=== PATIENT | male | born 1965 | race Caucasian/White ===

== ENCOUNTER → 2016-06-27 | Outpatient (CLI) | payer BC ==
[~2016-06-27] MED LIST: AZIT250T PO; ESOM20CA PO; HYDR-5688 PO; LEVO88TA3 PO; MULT-506 PO; ONDA4TAB46 PO
--- NOTE | 2016-06-27 11:40 | DIAGNOSTIC IMAGING REPORT ---
MRI THE RIGHT KNEE NO CONTRAST CLINICAL HISTORY: Persistent right knee pain COMPARISON STUDY: No previous studies for comparison. FINDINGS: Imaging was performed in sagittal, coronal, and axial planes. There are no areas of marrow replacement to indicate occult fracture or bone bruise. The medial and lateral collateral ligaments appear intact. The patellar retinacular structures appear intact. The visualized portions the patellar and quadriceps tendons appear intact. The anterior posterior cruciate ligaments appear normal. No meniscal tears are visualized. IMPRESSION: No evidence of internal derangement. Electronically signed by: Francisco Newby M.D. 06/27/2016 11:38 AM Dictated Date/Time: 06/27/2016 11:36 AM
== END | disposition home or self-care (01) ==
LOC: C.MRIBC 10:48
PROVIDERS: ATTEND Orthopaedic Surgery
DX: M25.561 Pain in right knee (principal)

== ENCOUNTER → 2016-09-14 | Outpatient (CLI) | payer BC ==
[2016-09-14 17:14] LABS: ALT/SGPT 109 U/L (12-78); BLOOD UREA NITROGEN 14 mg/dl (7-18); BUN/CREATININE RATIO 12.5 (10-20); CALCIUM 9.6 mg/dl (8.5-10.1); CARBON DIOXIDE 28 mmol/L (21-32); CHLORIDE 105 mmol/L (98-107); GLUCOSE 107 mg/dl (70-99); POTASSIUM 3.6 mmol/L (3.5-5.1); SODIUM 139 mmol/L (136-145)
[2016-09-14 17:15] LABS: BASO % 0.4 %; BASO ABS # 0.03 K/uL (0-0.2); COMPLETE YES; EOS % 2.1 %; HEMATOCRIT 46.5 % (42-52); IG% 0.1 %; LYMPH % 37.3 %; LYMPH ABS # 2.97 K/uL (1.2-3.4); MEAN CORPUSCULAR HGB CONC 33.8 g/dl (32-36); MEAN PLATELET VOLUME 9.2 fL (7.4-10.4); MONO % 7.4 %; NEUT % 52.7 %; PLATELET COUNT 353 K/uL (130-400); RED BLOOD COUNT 5.41 M/uL (4.7-6.1); WHITE BLOOD COUNT 7.97 K/uL (4.8-10.8)
[2016-09-14 17:17] LABS: ALB/GLOB RATIO 1.1 (0.9-2); ALKALINE PHOSPHATASE 162 U/L (45-117); AST/SGOT 44 U/L (15-37)
== END | disposition home or self-care (01) ==
LOC: C.LABBC 13:07
PROVIDERS: ATTEND Surgery
DX: K80.20 Calculus of gallbladder without cholecystitis without obstruction (principal); Z01.812 Encounter for preprocedural laboratory examination

== ENCOUNTER 2016-09-25 08:10 | Observation (INO) | payer BC ==
[2016-09-18 11:15] VITALS: BMI 27.0
[~2016-09-25] VITALS: Ht 177.8 cm; Wt 87.0 kg
[2016-09-25] VITALS (9 sets, daily range): BP systolic 116–146; BP diastolic 74–97; PULSE 61–86; TEMP 36.4–36.8; O2SAT 93–98; Ht 177.8 cm; Wt 87.0 kg
[~2016-09-25 08:10] MED LIST changes: -AZIT250T PO; +CEFUROXIME IV 1,500 MG in DEXTROSE 5% 100ML IV SCH; -HYDR-5688 PO; +LACTATED RINGER'S 1000ML 1,000 ML IV SCH; -ONDA4TAB46 PO
--- NOTE | 2016-09-25 09:54 | History & Physical Bridge Note ---
H&P Re-Evaluation Bridge Note: I have examined the patient, reviewed the History & Physical and in the interval since the performance of the History & Physical I have noted the following changes of clinical significance: - possible cholangiogram and liver bx- discussed with pt
[2016-09-25] MEDS ORDERED: FENTANYL CITRATE INJ 50 MCG/1 ML 2 ML VIAL ONE (09:56)
[2016-09-25] MEDS ORDERED: CONRAY 60% 50 ML VIAL ONE (09:57)
[2016-09-25] MEDS ORDERED: BUPIVACAINE 0.5 % 5 MG/1 ML MPF 30ML VIAL ONE (09:57)
[2016-09-25] MEDS ORDERED: MIDAZOLAM HCL 1 MG/ML 2ML VIAL ONE (09:57)
[2016-09-25] MEDS ORDERED: HYDR-5688 PO (09:58)
--- NOTE | 2016-09-25 09:59 | Discharge Instructions ---
Discharge Instructions Date of Service Sep 25, 2016. Admission Reason for Admission: Cholelithiasis Discharge Discharge Diagnosis / Problem: chronic cholecystitis Discharge Goals Goal(s): Decrease discomfort, Improve function, Improve disease control Activity Recommendations Activity Limitations: as noted below Lifting Limitations: no more than 25 pounds Exercise/Sports Limitations: until after follow-up appointment May Resume Sexual Activity: when tolerated Shower/Bathe: tomorrow Driving or Machine Use: resume 3 days after discharge SPECIAL CARE INSTRUCTIONS: * Cover incisions and change daily for comfort/drainage. May leave uncovered with dermabond * May use ibuprofen for pain as tolerated. * Expect some swelling and bruising. Call your doctor if: * Temperature above 101 degrees * Pain not relieved by pain medicine ordered * There is increased drainage or redness from any incision * You have any unanswered questions or concerns [phone]. FOLLOW UP VISIT: If not already scheduled, please call the office for a follow-up visit. for 2-3 weeks- no sutures to remove OFFICE PHONE NUMBER: Dr. Patrick Office . Current Hospital Diet Patient's current hospital diet: Discharge Diet Recommended Diet: Regular Diet Pending Studies Studies pending at discharge: no Medical Emergencies . Who to Call and When: Medical Emergencies: If at any time you feel your situation is an emergency, please call 911 immediately. . Non-Emergent Contact Non-Emergency issues call your: Primary Care Provider, Surgeon . "Provider Documentation" section prepared by Kosta Patrick. . VTE Core Measure Inpt VTE Proph given/why not?: SCD's
[2016-09-25] MEDS ORDERED: ONDANSETRON INJ 2 MG/ML 2 ML VIAL ONE (10:42)
[2016-09-25] MEDS ORDERED: LIDOCAINE HCL 2% 2 ML VIAL (20MG/ML) ONE ×2 (10:42)
[2016-09-25] MEDS ORDERED: PROPOFOL IV EMULSION 10 MG/ML 20 ML VIAL IV ONE (10:42)
[2016-09-25] MEDS ORDERED: DEXAMETHASONE SOD INJ 4 MG/ML VIAL ONE (10:42)
[2016-09-25] MEDS ORDERED: ROCURONIUM BROMIDE 10 MG/ML 5 ML VIAL ONE (10:42)
[2016-09-25] MEDS ORDERED: HYDROmorphone INJ 2 MG/ML SYR/VIAL ONE (10:56)
[2016-09-25] MEDS ORDERED: NEOSTIGMINE METHYLSULFATE 5 MG/5 ML SYR ONE (11:01)
[2016-09-25] MEDS ORDERED: GLYCOPYRROLATE INJ 0.2 MG/ML VIAL ONE (11:01)
[2016-09-25] MEDS ORDERED: PROMETHAZINE HCL INJ 25 MG in SODIUM CHLORIDE 0.9% 50ML 50 ML IV PRN (11:30)
[2016-09-25] MEDS ORDERED: MoRPHine SULFATE 4 MG/ML 1 ML CARP\\VIAL IV PRN (11:30)
[2016-09-25] MEDS ORDERED: ONDANSETRON INJ 2 MG/ML 2 ML VIAL IV PRN ×2 (11:30→11:45)
[2016-09-25] MEDS ORDERED: HYDROCODONE/ACETAMOPHEN 5/325MG TAB PO PRN (11:30)
[2016-09-25] MEDS ORDERED: MoRPHine SULFATE 2 MG/ML CARP IV PRN (11:30)
--- NOTE | 2016-09-25 11:42 | DIAGNOSTIC IMAGING REPORT ---
CHOLANGIOGRAM O.R. CLINICAL HISTORY: Laparoscopic cholecystectomy COMPARISON STUDY: None FLUOROSCOPY TIME: 21 seconds.. FINDINGS: There are cholecystectomy clips present. Contrast was used into the common bile duct. No common bile duct filling defects are visualized. There is slight smooth tapering of the distal common bile duct. There is free flow into the duodenum. IMPRESSION: No ductal filling defects identified. Free flow into the duodenum. Electronically signed by: Francisco Newby M.D. 09/25/2016 11:41 AM Dictated Date/Time: 09/25/2016 11:40 AM
[2016-09-25] MEDS ORDERED: FENTANYL CITRATE INJ 50 MCG/1 ML 2 ML VIAL IV PRN (11:45)
[2016-09-25] MEDS ORDERED: ATROPINE SULFATE 0.1 MG/ML 5ML SYR IV PRN (11:45)
[2016-09-25] MEDS ORDERED: EpHEDrine SULFATE INJ 50 MG/ML AMP IV PRN (11:45)
[2016-09-25] MEDS ORDERED: HYDROmorphone INJ 1 MG/ML SYR IV PRN (11:45)
--- NOTE | 2016-09-25 12:14 | Anesthesiology Progress Note ---
Anesthesia Post Op Note Date & Time Sep 25, 2016 at 12:13 Vital Signs Pain Intensity: 0 Vital Signs Past 12 Hours Date Time Temp Pulse Resp B/P (MAP) Pulse Ox O2 Delivery O2 Flow Rate FiO2 09/25/16 12:05 59 12 138/94 97 Nasal Cannula 2 09/25/16 11:55 64 12 154/94 100 Mask 10 09/25/16 11:45 65 12 133/93 99 Mask 10 09/25/16 11:37 36.1 71 24 141/99 94 Mask 10 09/25/16 08:26 36.8 72 18 141/87 (105) 98 Room Air Notes Mental Status: alert / awake / arousable, participated in evaluation Pt Amnestic to Procedure: Yes Nausea / Vomiting: adequately controlled Pain: adequately controlled Airway Patency, RR, SpO2: stable & adequate BP & HR: stable & adequate Hydration State: stable & adequate Anesthetic Complications: no major complications apparent
[2016-09-25] MEDS ORDERED: IV FLUIDS COMPLETED PRN (12:30)
[2016-09-25] MEDS: LACTATED RINGER'S 1000ML 1,000 ML IV SCH (13:12)
[2016-09-25] MEDS ORDERED: KETOROLAC TROMETHAMINE 30 MG/ML VIAL IV. ONE (13:15)
--- NOTE | 2016-09-25 14:42 | [facility] Operative Report ---
Operative Report Operative Date Sep 25, 2016. Pre-Operative Diagnosis Cholelithiasis Post-Operative Diagnosis Same chronic cholecystitis Procedure(s) Performed Laparoscopic Cholecystectomy with cholangiogram Surgeon Dr Patrick Passenger Locomotive Engineer Surgeon(s) Hermelindo Gregorio PA-C Estimated Blood Loss 10ml Findings adhesion and severe scar tissue Specimens A. Gallbladder Anesthesia gen Complication(s) None Disposition Recovery Room / PACU Description of Procedure Patient was brought in the operating room placed on the operating room table in supine position. Pneumatic stockings and orogastric tube were placed. His abdomen was prepped and draped in usual fashion. 1/2% plain Marcaine was used to anesthetize all incisions. Visual made above the umbilicus carried dissection down the fascia placing a varies needle producing pneumoperitoneum. 11 millimeter port placed this level and then under visualization 3-5 mm ports were placed one cephalad to laterally. The gallbladder was grasped there were adhesions to the gallbladder consistent with chronic cholecystitis. Dissection was carried out the deedee hepatis identifying scar tissue also consistent with chronic cholecystitis. The cystic artery was identified clipped and transected. The cystic duct was identified and clipped next to the gallbladder. Cholangiography was then performed showing no significant defects. Cystic duct was clipped and transected. The bladder was dissected away from the liver bed in usual fashion and placed in an Endobag. After prepping hemostasis and irrigation the Endobag was removed through the umbilical site. All ports were removed the fascia at the umbo was closed using 0 Vicryl suture. Skin was reapproximated using 4-0 Monocryl suture. Dermabond was applied. She was transferred to recovery room in stable condition I attest to the content of the Intraoperative Record and any orders documented therein. Any exceptions are noted below.
[2016-09-25] MEDS: CEFUROXIME IV 1,500 MG in DEXTROSE 5% 100ML 100 ML IV SCH (17:55)
--- NOTE | 2016-09-25 18:31 | Medical Consult ---
Consultation Date of Consultation: Sep 25, 2016. Attending Physician: Kosta Patrick M.D. Reason for Consultation: Medical Management History of Present Illness This is a 51 year old male with a PMH of hypothyroidism presents for a cholecystectomy. He has been following with Dr. Brar of GI for elevated LFTs. He underwent cholecystectomy earlier today; there was question about liver biopsy, unfortunately could not be obtained due to liver positioning. Tolerated food for lunch. Currently, pain controlled; no fevers/chills; no other issues to note. Social History Smoking Status: Never Smoker Allergies Coded Allergies: Dust Mite Extract (Verified Allergy, Unknown, HAY FEVER, 09/25/16) NO KNOWN DRUG ALLERGIES (Verified Allergy, Unknown, NKDA, 09/25/16) Current Inpatient Medications Current Inpatient Medications Medications (Trade) Dose Ordered Sig/Melissa Route Start Time Stop Time Status Last Admin Dose Admin Lactated Ringer's 1,000 ml @ 15 mls/hr Q24H IV 09/25/16 06:00 09/26/16 05:59 09/25/16 08:30 15 MLS/HR Levothyroxine Sodium (Synthroid Tab) 88 mcg DAILYBB PO 09/26/16 06:00 10/26/16 05:59 Pantoprazole Sodium (Protonix Tab) 40 mg QAM PO 09/26/16 09:00 10/26/16 08:59 Lactated Ringer's 1,000 ml @ 75 mls/hr [id number] IV 09/25/16 11:26 10/25/16 11:25 09/25/16 13:12 75 MLS/HR Cefuroxime Sodium 1500 mg/Dextrose 115 ml @ 200 mls/hr Q8H IV 09/25/16 18:00 09/26/16 17:59 09/25/16 17:55 200 MLS/HR Acetaminophen/ Hydrocodone Bitart ([place]ley 5/325 Tab) 1 tab Q4 PRN PO 09/25/16 11:30 10/09/16 11:29 Acetaminophen/ Hydrocodone Bitart ([place] 5/325 Tab) 2 tab Q4 PRN PO 09/25/16 11:30 10/09/16 11:29 Morphine Sulfate (MoRPHine SULFATE INJ) 2 mg Q4H PRN IV 09/25/16 11:30 10/09/16 11:29 Morphine Sulfate (MoRPHine SULFATE INJ) 4 mg Q4H PRN IV 09/25/16 11:30 10/09/16 11:29 Promethazine HCl 25 mg/Sodium Chloride 51 ml @ 204 mls/hr Q6H PRN IV 09/25/16 11:30 10/25/16 11:29 Ondansetron HCl (Zofran Inj) 4 mg Q6H PRN IV 09/25/16 11:30 10/25/16 11:29 Miscellaneous (Iv Fluids Completed) 1 ea PRN PRN N/A 09/25/16 12:30 09/25/17 12:29 Review of Systems Constitutional: No fever, No chills Respiratory: No cough, No sputum, No shortness of breath, No dyspnea on exertion, No dyspnea at rest Cardiovascular: No chest pain, No edema, No palpitations Abdomen: + pain (controlled with medications), No nausea, No vomiting, No diarrhea, No constipation, No GI bleeding Musculoskeletal: No joint pain, No muscle pain Genitourinary - Male: No hematuria, No dysuria, No urinary frequency, No urinary urgency Neurologic: No weakness, No numbness/tingling Psychiatric: No depression symptoms, No anxiety, No insomnia Endocrine: No fatigue Hematologic / Lymphatic: No abnormal bleeding/bruising Integumentary: No rash Allergic / Immunologic: + seasonal allergies, No environmental allergies Physical Exam Date Time Temp Pulse Resp B/P (MAP) Pulse Ox O2 Delivery O2 Flow Rate FiO2 09/25/16 17:01 Room Air 09/25/16 14:58 36.4 78 16 120/81 (94) 96 Room Air 09/25/16 13:58 36.5 85 19 130/83 (99) 98 Nasal Cannula 2.0 09/25/16 13:28 79 16 141/97 (112) 96 Nasal Cannula 2.0 09/25/16 13:05 69 16 146/93 (110) 97 2.0 09/25/16 12:45 Nasal Cannula 2.0 09/25/16 12:39 96 Nasal Cannula 2.0 09/25/16 12:30 36.6 61 16 145/90 (108) 98 Nasal Cannula 2.0 09/25/16 12:15 36.6 61 12 130/90 95 Nasal Cannula 2 09/25/16 12:05 59 12 138/94 97 Nasal Cannula 2 09/25/16 11:55 64 12 154/94 100 Mask 10 09/25/16 11:45 65 12 133/93 99 Mask 10 09/25/16 11:37 36.1 71 24 141/99 94 Mask 10 09/25/16 08:26 36.8 72 18 141/87 (105) 98 Room Air General Appearance: no apparent distress Head: normocephalic, atraumatic Eyes: normal inspection ENT: hearing grossly normal Respiratory/Chest: lungs clear, normal breath sounds, no respiratory distress, no accessory muscle use Cardiovascular: regular rate, rhythm, no edema, no murmur Abdomen/GI: normal bowel sounds, non tender, soft, + pertinent finding ( sutures in place) Extremities/Musculoskelatal: normal capillary refill, no pedal edema Neurologic/Psych: no motor/sensory deficits, alert, normal mood/affect Skin: normal color Lymphatic: no adenopathy Assessment & Plan This is a 51 year old male with a PMH of hypothyroidism presents for a cholecystectomy Cholecystitis s/p Lap Imani POD #0 doing well pain controlled tolerated PO intake check CBC and labs in AM continue IVFs Hypothyroidism continue Synthroid DVT ppx as per general surgery FULL CODE
[2016-09-25] MEDS: HYDROCODONE/ACETAMOPHEN 5/325MG TAB PO PRN (20:01)
[2016-09-26] MEDS: CEFUROXIME IV 1,500 MG in DEXTROSE 5% 100ML 100 ML IV SCH ×2 (01:01→09:33)
[2016-09-26] MEDS: LACTATED RINGER'S 1000ML 1,000 ML IV SCH (01:01)
[2016-09-26] MEDS: HYDROCODONE/ACETAMOPHEN 5/325MG TAB PO PRN ×2 (01:03→06:01)
[2016-09-26 03:18] VITALS: BP 104/59; PULSE 84; TEMP 36.7; O2SAT 95
[2016-09-26 05:10] LABS: HEMATOCRIT 38.5 % (42-52); MEAN CELL VOLUME 84.4 fL (80-100); MEAN CORPUSCULAR HEMOGLOBIN 28.9 pg (25-34); MEAN CORPUSCULAR HGB CONC 34.3 g/dl (32-36); MEAN PLATELET VOLUME 8.3 fL (7.4-10.4); PLATELET COUNT 309 K/uL (130-400); RED BLOOD COUNT 4.56 M/uL (4.7-6.1); WHITE BLOOD COUNT 14.58 K/uL (4.8-10.8)
[2016-09-26 05:36] LABS: BUN/CREATININE RATIO 12.6 (10-20); CALCIUM 8.5 mg/dl (8.5-10.1); CREATININE 0.96 mg/dl (0.60-1.40); POTASSIUM 3.8 mmol/L (3.5-5.1)
[2016-09-26] MEDS ORDERED: LEVOTHYROXINE 88 MCG TAB PO SCH (06:00)
--- NOTE | 2016-09-26 06:24 | Discharge Summary ---
Discharge Summary Date of Service Sep 26, 2016. Discharge Summary Admission Date: Sep 25, 2016 at 11:29 Discharge Date: Sep 26, 2016 Primary Diagnosis: chronic cholecystitis Procedures: laparoscopic cholecystectomy Discharge Instructions Last Recorded Wt (Kilograms): 87.000 Allergies: Coded Allergies: Dust Mite Extract (Verified Allergy, Unknown, HAY FEVER, 09/25/16) NO KNOWN DRUG ALLERGIES (Verified Allergy, Unknown, NKDA, 09/25/16) Special Care: Call your doctor if: * Temperature above 101 degrees * Pain not relieved by pain medicine ordered * There is increased drainage or redness from any incision * You have any unanswered questions or concerns. Avoid all tobacco products. If you need help to stop smoking, call [place] FREE QUITLINE at . This is a free call. Admission Information Admission HPI: Patient is admitted for elective cholecystectomy and cholangiogram. Hospital Course Patient is brought in the hospital on September 25 for elective cholecystectomy. He underwent laparoscopic cholecystectomy with intraoperative cholangiogram. His cholangiogram did not show any significant defects. He is doing quite well overnight and is felt stable for discharge home today to be followed in the surgical clinic within 1-2 weeks. Total time spent on discharge = This includes examination of the patient, discharge planning, medication reconciliation, and communication with other providers.
[2016-09-26 07:33] VITALS: BP 114/78; PULSE 67; TEMP 36.4; O2SAT 95
[2016-09-26 08:15] VITALS: O2SAT 95
--- NOTE | 2016-09-26 08:21 | Anesthesiology Progress Note ---
Anesthesia Post Op Note Date & Time Sep 26, 2016 at 08:21 Vital Signs Pain Intensity: 1.0 Vital Signs Past 12 Hours Date Time Temp Pulse Resp B/P (MAP) Pulse Ox O2 Delivery O2 Flow Rate FiO2 09/26/16 08:15 95 Room Air 09/26/16 07:45 Room Air 09/26/16 07:33 36.4 67 16 114/78 (90) 95 Room Air 09/26/16 03:18 36.7 84 12 104/59 (74) 95 Room Air 09/26/16 01:15 Room Air 09/25/16 23:05 36.7 86 16 116/74 (88) 93 Room Air Notes Mental Status: alert / awake / arousable, participated in evaluation Pt Amnestic to Procedure: Yes Nausea / Vomiting: adequately controlled Pain: adequately controlled Airway Patency, RR, SpO2: stable & adequate BP & HR: stable & adequate Hydration State: stable & adequate Anesthetic Complications: no major complications apparent
[2016-09-26] MEDS ORDERED: PANTOprazole SOD 40 MG TAB PO SCH (09:00)
[2016-09-26 09:17] VITALS: BP 114/78; PULSE 67; TEMP 36.4; O2SAT 95
== END 2016-09-26 10:30 | disposition home or self-care (01) ==
LOC: C.ACU 08:10 → C.MSW 11:29 → ENRESERV 11:59
PROVIDERS: ADMIT Surgery; ATTEND Surgery
DX: K80.10 Calculus of gallbladder with chronic cholecystitis without obstruction (principal); E03.9 Hypothyroidism, unspecified

== ENCOUNTER 2024-02-22 21:13 | Inpatient (IN) ==
[2024-02-22] MEDS: ASPIRIN CHEW 324 MG PO STA (21:23)
[2024-02-22] MEDS: HEPARIN SOD (PORCINE) 1000 UNIT/ML IV ONE (21:30)
[2024-02-22 21:35] LABS: Basophils # (auto) 0.05 K/uL (0.00-0.20); Basophils % (auto) 0.2 %; Eosinophils % (auto) 0.5 %; Hemoglobin 15.7 g/dl (14.0-18.0); Immature Granulocytes % (auto) 0.5 %; Lymphocytes # (auto) 2.61 K/uL (1.20-3.40); Lymphocytes % (auto) 12.4 %; Mean Corpuscular Hemoglobin 29.5 pg (25.0-34.0); Mean Corpuscular Hgb Conc 34.1 g/dL (32.0-36.0); Mean Corpuscular Volume 86.3 fL (80.0-100.0); Mean Platelet Volume 8.7 fL (9.4-12.4); Monocytes # (auto) 0.99 K/uL (0.11-0.59); Monocytes % (auto) 4.7 %; Neutrophils # (auto) 17.25 K/uL (1.40-6.50); Neutrophils % (auto) 81.7 %; Platelet Count 364 K/uL (130-400); RDW Coefficient of Variation 11.8 % (11.5-14.5); RDW Standard Deviation 37.1 fL (36.4-46.3); Red Blood Count 5.33 M/uL (4.70-6.10)
[2024-02-22 21:38] LABS: iSTAT Creatinine 1.1 mg/dl (0.6-1.3); iSTAT Ionized Calcium 1.22 mmol/l (1.12-1.32); iSTAT Potassium 3.6 mmol/L (3.3-5.0)
[2024-02-22] MEDS: ONDANSETRON INJ 2 MG/ML 2 ML VIAL IV STA (21:44)
[2024-02-22] MEDS: TICAGRELOR 90 MG TAB ONE ×2 (21:44→22:31)
[2024-02-22] MEDS: MoRPHine SULFATE 4 MG/ML 1 ML CARP\\VIAL IV STA (21:44)
--- NOTE | 2024-02-22 21:46 | Emergency Department Note ---
Impression & Plan ST elevation (STEMI) myocardial infarction, Chest pain, Elevated troponin I level ED Provider Note NAME: JARRETT FOURNIER AGE: 58 SEX: M : 1965 ARRIVES VIA: Walk-In INFORMANT: Patient, ED PROVIDER(S): Arnold Rinaldi DO CHIEF COMPLAINT: Chest pain HPI: The patient is a 58-year-old male who presented to the emergency department for an evaluation of chest pain. The patient describes anterior chest pain that he also notices across the posterior shoulders. The patient denies having any difficulty breathing. He said no leg swelling. The patient states he had a small amount of the pain yesterday but it went away without incident. He then had return of the pain this evening around dinnertime. The patient has no history of coronary artery disease. He does not have a history of a previous catheterization. The patient was brought directly back from triage. ROS: See above HPI for pertinent positives & negatives. A total of 10 systems reviewed and were otherwise negative. PAST MEDICAL HISTORY: See Below PAST SURGICAL HISTORY: See Below FAMILY HISTORY: See Below SOCIAL HISTORY: See Below HOME MEDICATIONS: See Below ALLERGIES: See Below VITALS: See Below PHYSICAL EXAMINATION: GENERAL: The patient is awake and alert. The patient is very anxious. EYES: The conjunctivae are clear. The pupils are round and reactive. EARS, NOSE, MOUTH AND THROAT: The nose is without any evidence of any deformity. NECK: The neck is nontender and supple. RESPIRATORY: Normal respiratory effort is noted there is no evidence of wheezing rhonchi or rales CARDIOVASCULAR: Regular rate and rhythm noted there no murmurs rubs or gallops normal S1 normal S2. GASTROINTESTINAL: The abdomen is soft. Abdomen is nontender. MUSCULOSKELETAL/EXTREMITIES: There is no evidence of gross deformity full range of motion is noted in the hips and shoulders. SKIN: There is no obvious evidence of any rash. There are no petechiae, pallor or cyanosis noted. NEUROLOGIC: Patient is awake alert and oriented x3 MEDICAL DECISION MAKING: The patient is a 58-year-old male who presented to the emergency department for an evaluation of chest pain. The patient was brought directly to the treatment room. His EKG showed signs of acute anterior wall ST segment elevation RI. He was having significant ectopy. He was treated with aspirin as well as pain medication. He was also given antiemetics. Initial blood pressure was elevated but this did improve while in the emergency department. He was also treated with heparin and Brilinta after I discussed his condition with the visiting teacher. The patient was reevaluated multiple times. Pain slowly improved but he was still felt to be a good candidate for cardiac catheterization given his findings. The patient was agreeable to this course. Triage Nursing notes reviewed. Prior medical records reviewed Vital Signs: reviewed and remarkable for hypotension. Differential diagnosis: Cardiac ischemia, aortic dissection, pulmonary embolism, pneumothorax, pneumonia, pericarditis, myocarditis, esophageal rupture, GERD, cholecystitis, pancreatitis, musculoskeletal, as well as other pathologies. ER treatment provided: See below Diagnostics interpreted by me: ECG: Initial EKG was obtained in the emergency department. My interpretation is sinus tachycardia at 106 bpm. Frequent PVCs were noted. There is ST segment elevation noted in the anterior leads with reciprocal changes in the inferior leads. No previous tracing was available. A second EKG was obtained in the emergency department. My interpretation is sinus tachycardia at 104 bpm. Frequent PVCs were noted with persistence of the ST segment elevation in the anterior leads as well as a reciprocal changes in the inferior leads. Cardiac Monitoring: An order was placed for continuous cardiac monitoring. The monitor shows a rate of 79 bpm with sinus rhythm and frequent PVCs.. Laboratory studies: As stated above and show below. Imaging studies: See below. Radiographic imaging was reviewed by myself Consultation(s): I discussed this case with Dr. Jimenez in the emergency department. I discussed this case with Dr. Le[facility] COURSE: Procedures: none Critical Care: I have personally spent greater than 35 minutes of critical care time in the direct management of this patient. This includes bedside care, interpretation of diagnostic studies, and testing, discussion with consultants, patient, and family members, and other required patient management activities. This 35 minutes is in excess of all separately billable procedures. Past Med/Surg History Problem List (Updated 02/23/24 @ 00:56 by Arnold Rinaldi DO) Elevated troponin I level (Acute) Chest pain (Acute) ST elevation (STEMI) myocardial infarction (Acute) Screening PSA (prostate specific antigen) Unwanted fertility Back pain GERD (gastroesophageal reflux disease) (Acute) Hypercholesterolemia (Acute) Hypothyroidism (Acute) Chronic calculous cholecystitis Social History Smoking Status: Never smoker Hx Alcohol Use: Yes Alcohol type: beer Hx Substance Use: No Preferred Language: Indonesian Communication Ability: Effective Well Blower Required: No Beliefs That Will Affect Care: None Current Living Situation: Spouse and Family Current Living Situation Comment: Patient lives at home with spouse and two children ages 14 and 17 Other Information That Helps Us Care for You: No Feels Safe at Home: Yes Safety Concerns: Feels Safe At This Time Assistive Devices: Glasses Allergies Allergies Allergy/AdvReac Type Severity Reaction Status Date / Time No Known Drug Allergies Allergy Unknown NKDA Verified 04/10/23 09:25 Home Meds Home Medications Medication Instructions Recorded Confirmed Multivitamin 1 tab PO QAM #0 tabs 09/18/16 02/22/24 levothyroxine 88 mcg tablet 100 mcg PO DAILY 02/22/24 02/22/24 rosuvastatin 5 mg tablet 5 mg PO DAILY 02/22/24 02/22/24 Previous Rx's Medication Instructions Recorded esomeprazole magnesium 20 mg 20 mg PO DAILY #30 caps 08/16/18 capsule,delayed release Results & Data (ED) Vital Signs Vital Signs - 24 hr 02/22/24 21:15 02/22/24 21:22 02/22/24 21:27 Temperature 36.5 C Temperature Source Temporal Artery Scan Pulse Rate 109 H 108 H 106 H Pulse Rate [Apical] Pulse Rate from SpO2 Sensor Pulse Rhythm Pulse Rhythm [Apical] Pulse Strength [Apical] Respiratory Rate 22 18 Respiratory Effort / Characteristics Non-Labored Respiratory Depth Normal Respiratory Pattern Blood Pressure 146/99 H 146/103 H Blood Pressure [Left Arm] Blood Pressure Mean 114 117 Blood Pressure Mean [Left Arm] Pulse Oximetry 98 98 Oxygen Delivery Method Room Air Sepsis Recent Fever Within 48 Hours No Sepsis New/Unexplained Change in Mental Status No Sepsis Action Taken by Nursing No Action Required 02/22/24 21:30 02/22/24 21:36 02/22/24 21:36 Temperature Temperature Source Pulse Rate 106 H Pulse Rate [Apical] 97 H Pulse Rate from SpO2 Sensor Pulse Rhythm Pulse Rhythm [Apical] Irregular Pulse Strength [Apical] Normal Respiratory Rate 17 23 Respiratory Effort / Characteristics Non-Labored Spontaneous Respiratory Depth Normal Respiratory Pattern Regular Blood Pressure 132/92 Blood Pressure [Left Arm] 130/79 Blood Pressure Mean 105 Blood Pressure Mean [Left Arm] 96 Pulse Oximetry 98 95 95 Oxygen Delivery Method Room Air Room Air Sepsis Recent Fever Within 48 Hours Sepsis New/Unexplained Change in Mental Status Sepsis Action Taken by Nursing 02/22/24 21:36 02/22/24 21:42 02/22/24 23:10 Temperature Temperature Source Pulse Rate 95 H 108 H Pulse Rate [Apical] Pulse Rate from SpO2 Sensor Pulse Rhythm Regular Pulse Rhythm [Apical] Pulse Strength [Apical] Respiratory Rate 23 23 Respiratory Effort / Characteristics Respiratory Depth Respiratory Pattern Blood Pressure 129/79 93/65 L Blood Pressure [Left Arm] Blood Pressure Mean 95 74 Blood Pressure Mean [Left Arm] Pulse Oximetry 95 95 Oxygen Delivery Method Room Air Sepsis Recent Fever Within 48 Hours Sepsis New/Unexplained Change in Mental Status Sepsis Action Taken by Nursing 02/22/24 23:10 02/22/24 23:18 02/22/24 23:33 Temperature Temperature Source Pulse Rate 78 73 Pulse Rate [Apical] Pulse Rate from SpO2 Sensor 80 74 Pulse Rhythm Pulse Rhythm [Apical] Pulse Strength [Apical] Respiratory Rate 26 H 13 Respiratory Effort / Characteristics Respiratory Depth Respiratory Pattern Blood Pressure 93/65 L Blood Pressure [Left Arm] Blood Pressure Mean 74 Blood Pressure Mean [Left Arm] Pulse Oximetry 90 97 Oxygen Delivery Method Sepsis Recent Fever Within 48 Hours Sepsis New/Unexplained Change in Mental Status Sepsis Action Taken by Nursing 02/22/24 23:35 02/22/24 23:35 Temperature Temperature Source Pulse Rate Pulse Rate [Apical] Pulse Rate from SpO2 Sensor Pulse Rhythm Pulse Rhythm [Apical] Pulse Strength [Apical] Respiratory Rate Respiratory Effort / Characteristics Respiratory Depth Respiratory Pattern Blood Pressure 98/66 L 98/66 L Blood Pressure [Left Arm] Blood Pressure Mean 72 72 Blood Pressure Mean [Left Arm] Pulse Oximetry Oxygen Delivery Method Sepsis Recent Fever Within 48 Hours Sepsis New/Unexplained Change in Mental Status Sepsis Action Taken by Care Home Medications Current Medication List: was personally reviewed by me Laboratory Data Attestation: I reviewed the patient's lab results. 02/23/24 00:07 02/22/24 21:23 Lab Results 02/22/24 02/22/24 02/22/24 Range/Units 21:23 21:24 21:26 WBC 21.10 H (4.8-10.8) K/ul RBC 5.33 (4.70-6.10) M/uL Hgb 15.7 (14.0-18.0) g/dl POC Hgb 16.0 (14.0-18.0) g/dl Hct 46.0 (42.0-52.0) % POC Hct 47 (42-52) % MCV 86.3 (80.0-100.0) fL MCH 29.5 (25.0-34.0) pg MCHC 34.1 (32.0-36.0) g/dL RDW Std Deviation 37.1 (36.4-46.3) fL RDW Coeff of Shaheen 11.8 (11.5-14.5) % Plt Count 364 (130-400) K/uL MPV 8.7 L (9.4-12.4) fL Immature Gran % (Auto) 0.5 % Neut % (Auto) 81.7 % Lymph % (Auto) 12.4 % Canyon % (Auto) 4.7 % Eos % (Auto) 0.5 % Baso % (Auto) 0.2 % Neut # (Auto) 17.25 H (1.40-6.50) K/uL Lymph # (Auto) 2.61 (1.20-3.40) K/uL Canyon # (Auto) 0.99 H (0.11-0.59) K/uL Eos # (Auto) 0.10 (0.00-0.50) K/uL Baso # (Auto) 0.05 (0.00-0.20) K/uL Immature Gran # (Auto) 0.10 (0.01-0.20) K/uL PT 10.6 (9.0-12.0) Seconds INR 1.0 (0.9-1.1) APTT 26 (21-31) Seconds PTT Ratio 1.0 Activ Coag Time Kaolin (94-140) SECONDS POC Sodium 142 (135-144) mmol/L Sodium 141 (136-145) mmol/L POC Potassium 3.6 (3.3-5.0) mmol/L Potassium 3.6 (3.5-5.1) mmol/L POC Chloride 103 (101-112) mmol/L Chloride 103 (98-107) mmol/L Carbon Dioxide 29 (21-32) mmol/L POC Total CO2 28 (24-31) mmol/L Anion Gap 9 (3-11) POC Anion Gap 16.0 (16-25) mmol/L POC BUN 13 (7-18) mg/dl BUN 14 (6-23) mg/dl Creatinine 1.01 (0.6-1.4) mg/dl POC Creatinine 1.1 (0.6-1.3) mg/dl Est Cr Clr Drug Dosing 77.7 ml/min eGFR 87.28 BUN/Creatinine Ratio 13.9 (10-20) Glucose 102 H (70-99(Fasting)) mg/dl POC Glucose (other) 106 H (70-99) mg/dl Calcium 10.0 (8.6-10.3) mg/dl POC Ioniz Calcium Nawaf 1.22 (1.12-1.32) mmol/l Magnesium 2.0 (1.7-2.4) mg/dl Total Bilirubin 1.8 H (0.2-1.0) mg/dl AST 37 (13-39) U/L ALT 64 H (7-52) U/L Alkaline Phosphatase 140 H (34-104) U/L Troponin I High Sens 294.6 H* (0-20) pg/ml Total Protein 8.1 (6.0-8.3) gm/dl Albumin 5.0 (3.4-5.0) gm/dl Globulin 3.1 (2.5-4.0) gm/dl Albumin/Globulin Ratio 1.6 (0.9-2) Lipase 54 (11-82) U/L Procalcitonin < 0.02 (0-0.5) ng/ml 02/22/24 02/22/24 02/22/24 Range/Units 22:04 22:21 22:45 WBC (4.8-10.8) K/ul RBC (4.70-6.10) M/uL Hgb (14.0-18.0) g/dl POC Hgb (14.0-18.0) g/dl Hct (42.0-52.0) % POC Hct (42-52) % MCV (80.0-100.0) fL MCH (25.0-34.0) pg MCHC (32.0-36.0) g/dL RDW Std Deviation (36.4-46.3) fL RDW Coeff of Shaheen (11.5-14.5) % Plt Count (130-400) K/uL MPV (9.4-12.4) fL Immature Gran % (Auto) % Neut % (Auto) % Lymph % (Auto) % Canyon % (Auto) % Eos % (Auto) % Baso % (Auto) % Neut # (Auto) (1.40-6.50) K/uL Lymph # (Auto) (1.20-3.40) K/uL Canyon # (Auto) (0.11-0.59) K/uL Eos # (Auto) (0.00-0.50) K/uL Baso # (Auto) (0.00-0.20) K/uL Immature Gran # (Auto) (0.01-0.20) K/uL PT (9.0-12.0) Seconds INR (0.9-1.1) APTT (21-31) Seconds PTT Ratio Activ Coag Time Kaolin 204 H 279 H 233 H (94-140) SECONDS POC Sodium (135-144) mmol/L Sodium (136-145) mmol/L POC Potassium (3.3-5.0) mmol/L Potassium (3.5-5.1) mmol/L POC Chloride (101-112) mmol/L Chloride (98-107) mmol/L Carbon Dioxide (21-32) mmol/L POC Total CO2 (24-31) mmol/L Anion Gap (3-11) POC Anion Gap (16-25) mmol/L POC BUN (7-18) mg/dl BUN (6-23) mg/dl Creatinine (0.6-1.4) mg/dl POC Creatinine (0.6-1.3) mg/dl Est Cr Clr Drug Dosing ml/min eGFR BUN/Creatinine Ratio (10-20) Glucose (70-99(Fasting)) mg/dl POC Glucose (other) (70-99) mg/dl Calcium (8.6-10.3) mg/dl POC Ioniz Calcium Nawaf (1.12-1.32) mmol/l Magnesium (1.7-2.4) mg/dl Total Bilirubin (0.2-1.0) mg/dl AST (13-39) U/L ALT (7-52) U/L Alkaline Phosphatase (34-104) U/L Troponin I High Sens (0-20) pg/ml Total Protein (6.0-8.3) gm/dl Albumin (3.4-5.0) gm/dl Globulin (2.5-4.0) gm/dl Albumin/Globulin Ratio (0.9-2) Lipase (11-82) U/L Procalcitonin (0-0.5) ng/ml Administered Medications Discontinued Medications Amiodarone HCl/Dextrose (Amiodarone 360mg / 200ml D5w (Film Drying Machine Operator Use Only)) Confirm Administered Dose 360 mg IV .STK-MED ONE Stop: 02/22/24 22:08 Last Admin: 02/22/24 22:30 Dose: 360 mg Documented By: CORNELIO Amiodarone HCl (Amiodarone Hcl Inj 50 Mg/Ml 3 Ml Vial (Film Drying Machine Operator Use Only)) Confirm Administered Dose 300 mg IV .STK-MED ONE Stop: 02/22/24 22:08 Last Admin: 02/22/24 22:30 Dose: 300 mg Documented By: CORNELIO Aspirin (Aspirin Chew 324 Mg) 324 mg PO NOW STA Stop: 02/22/24 21:21 Last Admin: 02/22/24 21:23 Dose: 324 mg Documented By: SIERRA Fentanyl Citrate (Fentanyl Citrate Pf 100 Mcg/2 Ml Vial) Confirm Administered Dose 100 mcg .ROUTE .STK-MED ONE Stop: 02/22/24 21:32 Last Admin: 02/22/24 22:51 Dose: 100 mcg Documented By: CORNELIO Heparin Sodium (Porcine) (Heparin Sod (Porcine) 1000 Unit/Ml) Confirm Administered Dose 1,000 units .ROUTE .STK-MED ONE Stop: 02/22/24 21:23 Last Admin: 02/22/24 22:31 Dose: Not Given Documented By: CORNELIO Heparin Sodium (Porcine) (Heparin Sod (Porcine) 1000 Unit/Ml) 5,000 units IV NOW ONE Stop: 02/22/24 21:31 Last Admin: 02/22/24 21:30 Dose: 5,000 units Documented By: SIERRA Co-signed By: Heparin Sodium (Porcine) (Heparin (Porcine) 1000 Unit/Ml 10 Ml (Film Drying Machine Operator Use Only)) Confirm Administered Dose 10,000 units .ROUTE .STK-MED ONE Stop: 02/22/24 21:32 Last Admin: 02/22/24 22:52 Dose: 4,500 units Documented By: CORNELIO Heparin Sodium/Sodium Chloride (Heparin In Nss Infusion 1000 Unit/500 Ml (2 U/Ml) Bag) Confirm Administered Dose 3,000 units IV .STK-MED ONE Stop: 02/22/24 21:32 Last Admin: 02/22/24 22:29 Dose: 3,000 units Documented By: ABY Ioversol (Optiray 350) Confirm Administered Dose 1 ml .ROUTE .STK-MED ONE Stop: 02/22/24 21:33 Last Admin: 02/22/24 22:52 Dose: 240 ml Documented By: CORNELIO Midazolam HCl (Midazolam Hcl 1 Mg/Ml 2ml Vial) Confirm Administered Dose 2 mg .ROUTE .STK-MED ONE Stop: 02/22/24 21:32 Last Admin: 02/22/24 22:52 Dose: 2 mg Documented By: CORNELIO Morphine Sulfate (Morphine Sulfate 4 Mg/Ml 1 Ml Carp\Vial) 4 mg IV NOW STA Stop: 02/22/24 21:23 Last Admin: 02/22/24 21:44 Dose: 4 mg Documented By: SIERRA Nicardipine HCl (Nicardipine 2,000 Mcg/20 Ml Syr) Confirm Administered Dose 2,000 mcg .ROUTE .STK-MED ONE Stop: 02/22/24 21:32 Last Admin: 02/22/24 22:29 Dose: 2,000 mcg Documented By: ABY Nitroglycerin/Dextrose (Nitroglycerin/D5w 100mcg/Ml 20ml Syr) Confirm Administered Dose 2,000 mcg .ROUTE .STK-MED ONE Stop: 02/22/24 21:33 Last Admin: 02/22/24 22:29 Dose: 2,000 mcg Documented By: ABY Ondansetron HCl (Ondansetron Inj 2 Mg/Ml 2 Ml Vial) 4 mg IV NOW STA Stop: 02/22/24 21:23 Last Admin: 02/22/24 21:44 Dose: 4 mg Documented By: SIERRA Phenylephrine HCl (Phenylephrine 100mcg/Ml 5ml Syr) Confirm Administered Dose 100 mcg .ROUTE .STK-MED ONE Stop: 02/22/24 22:14 Last Admin: 02/22/24 22:30 Dose: 200 mcg Documented By: CORNELIO Co-signed By: KRYSTINA Ticagrelor (Ticagrelor 90 Mg Tab) Confirm Administered Dose 90 mg .ROUTE .STK- MED ONE Stop: 02/22/24 21:23 Last Admin: 02/22/24 21:45 Dose: 90 mg Documented By: Admin: 02/22/24 21:44 Dose: 90 mg Documented By: SIERRA Ticagrelor (Ticagrelor 90 Mg Tab) Confirm Administered Dose 90 mg .ROUTE .STK- MED ONE Stop: 02/22/24 21:44 Last Admin: 02/22/24 22:31 Dose: Not Given Documented By: CMColleen Ticagrelor (Ticagrelor 90 Mg Tab) 180 mg PO ONE ONE Stop: 02/22/24 21:46 Last Admin: 02/23/24 00:34 Dose: Not Given Documented By: [facility] Imaging Data Attestation: I personally reviewed and interpreted this imaging study as follows: My Impression: 1 view chest x-ray was obtained in the emergency department. My interpretation is no free air or definite infiltrate, final report below. Radiologist's Impression: Chest X-Ray 02/22/24 21:20 Exam(s): XR CXR 1 VIEW EXAM: XR Chest, 1 View CLINICAL HISTORY: Reason for exam: Chest pain, nonspecific. TECHNIQUE: Frontal view of the chest. COMPARISON: No relevant prior studies available. FINDINGS: Lungs: Unremarkable. No consolidation. Pleural space: Unremarkable. No pleural effusion or pneumothorax. Heart: Unremarkable. No cardiomegaly or pulmonary vascular congestion. Bones/joints: No acute fracture. No dislocation. IMPRESSION: No evidence of acute cardiopulmonary disease. Electronically signed by: Aleena Seth M.D. 02/22/24 23:14 PM Discharge Plan Visit Data Chief Complaint: Chest Pain Stated Complaint: CHEST PAIN, TINGLING BILATERAL ARMS, ED Provider: Arnold Rinaldi Discharge Problem: ST elevation (STEMI) myocardial infarction, Chest pain, Elevated troponin I level Patient Disposition: Being Evaluated by Hospitalist Discharge Instructions Interventions: ED Discharge Assessment Last Done: 02/22/24 21:53 Discharge Problem: ST elevation (STEMI) myocardial infarction Qualifiers: Involved coronary artery: LAD coronary artery Qualified Code(s): I21.02 - ST elevation (STEMI) myocardial infarction involving left anterior descending coronary artery Chest pain Qualifiers: Chest pain type: unspecified Qualified Code(s): R07.9 - Chest pain, unspecified
[2024-02-22 21:53] LABS: Albumin Globulin Ratio 1.6 (0.9-2); BUN Creatinine Ratio 13.9 (10-20); Bilirubin,Total 1.8 mg/dl (0.2-1.0); Creatinine Clr Calc Pharmacy 77.7 ml/min; Globulin 3.1 gm/dl (2.5-4.0); Potassium 3.6 mmol/L (3.5-5.1); Total Protein 8.1 gm/dl (6.0-8.3)
[2024-02-22 22:03] LABS: Partial Thromboplastin Time 26 Seconds (21-31); Prothrombin Time 10.6 Seconds (9.0-12.0)
[2024-02-22 22:18] LABS: Troponin I High Sensitivity 294.6 pg/ml (0-20)
[2024-02-22] MEDS: NITROGLYCERIN/D5W 100MCG/ML 20ML SYR ONE (22:29)
[2024-02-22] MEDS: niCARdipine 2,000 MCG/20 ML SYR ONE (22:29)
[2024-02-22] MEDS: PHENYLEPHRINE 100MCG/ML 5ML SYR ONE (22:30)
[2024-02-22] MEDS: AMIODARONE 360MG / 200ML D5W (CATH LAB USE ONLY) IV ONE (22:30)
[2024-02-22] MEDS: AMIODARONE HCL INJ 50 MG/ML 3 ML VIAL (CATH LAB USE ONLY) IV ONE (22:30)
[2024-02-22] MEDS: HEPARIN SOD (PORCINE) 1000 UNIT/ML ONE (22:31)
[2024-02-22] MEDS: fentaNYL citrate PF 100 MCG/2 ML VIAL ONE (22:51)
[2024-02-22] MEDS: HEPARIN (PORCINE) 1000 UNIT/ML 10 ML (CATH LAB USE ONLY) ONE (22:52)
[2024-02-22] MEDS: OPTIRAY 350 ONE (22:52)
[2024-02-22] MEDS: MIDAZOLAM HCL 1 MG/ML 2ML VIAL ONE (22:52)
--- NOTE | 2024-02-22 23:03 | Pre Anesthesia Assessment ---
Date of Service February 22, 2024 Pre Sedation Assessment Vital Signs Temp Pulse Pulse Resp BP BP Pulse Ox 02/22/24 21:42 108 H 23 129/79 95 02/22/24 21:36 95 H 23 95 02/22/24 21:36 97 H 23 130/79 95 02/22/24 21:36 95 02/22/24 21:30 106 H 17 132/92 98 02/22/24 21:27 106 H 18 146/103 H 98 02/22/24 21:22 108 H 02/22/24 21:15 36.5 C 109 H 22 146/99 H 98 O2 Del Method 02/22/24 21:42 02/22/24 21:36 Room Air 02/22/24 21:36 Room Air 02/22/24 21:36 Room Air 02/22/24 21:30 02/22/24 21:27 02/22/24 21:22 02/22/24 21:15 Room Air Cardiovascular RRR, no murmur, no edema Respiratory normal respiratory effort, lungs clear to auscultation Pre-Sedation Airway Assessment Smoking Status: Never smoker Mallampati 2 ASA 4 Notes The planned sedation has been discussed with the patient. Informed Consent was obtained. I have identified the patient, determined the appropriateness of sedation and have assessed the patient immediately prior to the procedure. All medicine(s) and interventions are by my order.
[2024-02-22] MEDS ORDERED: NITROGLYCERIN SL 0.4 MG/TAB TAB SL PRN (23:04)
--- NOTE | 2024-02-22 23:05 | Post Anesthesia Assessment ---
Date of Service February 22, 2024 Post Sedation Assessment Vital Signs Temp Pulse Pulse Resp BP BP Pulse Ox 02/22/24 21:42 108 H 23 129/79 95 02/22/24 21:36 95 H 23 95 02/22/24 21:36 97 H 23 130/79 95 02/22/24 21:36 95 02/22/24 21:30 106 H 17 132/92 98 02/22/24 21:27 106 H 18 146/103 H 98 02/22/24 21:22 108 H 02/22/24 21:15 36.5 C 109 H 22 146/99 H 98 O2 Del Method 02/22/24 21:42 02/22/24 21:36 Room Air 02/22/24 21:36 Room Air 02/22/24 21:36 Room Air 02/22/24 21:30 02/22/24 21:27 02/22/24 21:22 02/22/24 21:15 Room Air Recovery Score Activity: Moves 4 extremities Respiration: Deep Breath/Cough Circulation: +/-20% PreAnes Value Consciousness: Fully Awake Oxygen Saturation: > 92% On Room Air Discharge Sedation Level of Care: Fast Track Phase II Post Sedation Plan On clinical assessment, the patient appears to have tolerated the sedation without complications. Patient is recovering as anticipated. Patient will continue to be monitored by nursing and may be discharged when sedation discharge criteria are met per below protocol. Upon Completions of procedure up to 15 minutes continue every 5 minute vital signs and the P.A.R. score; then discharge to a Phase I or Fast Track to Phase II per the following guidelines: * Discharge Patient to appropriate Phase II area if PAR is 8 or greater or return to pre- procedure baseline. The post - procedure orders will be as directed. * If PAR score is less than 8 or not return to pre-procedure baseline then patient will follow Phase I monitoring till PAR is reached for Phase II. The Phase I may be done in procedure room or may call to secure a Phase I area. * If naloxone or flumazenil are used for reversal, hold in Phase I for co ntinued monitoring from when last reversal dose was given for a minimum of 60 minutes or longer pending the nurse and/or physician discretion of patient condition before discharge to Phase II. Please call the Sedation Physician to re-evaluate and complete post-note for discharge to Phase II area. Do NOT discharge from procedure sedation or Phase 1 until post- sedation evaluation note is complete by procedure /sedation MD Sedation Discharge Instructions to be given to the patient at discharge to home. [facility] [place]odes (Charges) Indication for Procedure Indication for procedure: ST elevation [place] Sedation/Anesthesia Procedure 1: Sedation/Anesthesia: 95992 Mod Sedation by the same physician;Init15 Min Child Age 5 & Up (Initial 15 minutes, start time 2156) Total Sedation Time (minutes): 54 Procedure 2: Sedation/Anesthesia: 41580 Mod Sedation by the same physician; Ea [id number] Minutes (Additional 39 minutes, end time 2250)
--- NOTE | 2024-02-22 23:15 | XRay Report ---
Exam(s): XR CXR 1 VIEW EXAM: XR Chest, 1 View CLINICAL HISTORY: Reason for exam: Chest pain, nonspecific. TECHNIQUE: Frontal view of the chest. COMPARISON: No relevant prior studies available. FINDINGS: Lungs: Unremarkable. No consolidation. Pleural space: Unremarkable. No pleural effusion or pneumothorax. Heart: Unremarkable. No cardiomegaly or pulmonary vascular congestion. Bones/joints: No acute fracture. No dislocation. IMPRESSION: No evidence of acute cardiopulmonary disease. Electronically signed by: Aleena Seth M.D. 02/22/24 23:14 PM
--- NOTE | 2024-02-22 23:18 | Cardiac Catheterization ---
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 Cardiac Status Clinical evaluation leading to the procedure CAD Presenation: STEMI Anginal Classification: CCS IV Heart Failure: No Cardiogenic Shock within 24 Hours: No Cardiac Arrest within 24 Hours: No Imaging Studies Past 6 Months: No Stress Studies Past 6 Months: No Coronary Anatomy Dominant: Right Left Main (% Stenosis): Normal LAD (% Stenosis): Ostial (20-30%), Proximal (100%) and Distal (50%) D1 (% Stenosis): Normal Circumflex (% Stenosis): Normal OM1 (% Stenosis): Proximal (50%) OM2 (% Stenosis): Normal L PL1 (% Stenosis): Normal RCA (% Stenosis): Proximal (Up to 50%) and Mid (Less than 30%) R PDA (% Stenosis): Normal R PL1 (% Stenosis): Normal Diagnostic Physicians Name: Jason Jimenez MD, PhD Closure Device Percutaneous Entry Location: Radial Closure Device: Radial Band Recommendations: PCI without planned CABG PCI Indication: PCI for STEMI - Unstable First Noted: First EKG Lesion Segment Name: Proximal to mid LAD Culprit Artery: Yes Stenosis Prior to Rx (%): 100% Chronic Total Occlusion: No Pre-Procedure SHANNON Flow: 0 Previously Treated Lesion: No Lesion Complexity: Non-High/Non-C Lesion Length (mm): 24 Thrombus Present: Yes Bifurcation Lesion: Yes Guidewire Across Lesion: Yes Intraprocedure Events Significant Disection: No Perforation: No Cardiac Cath Procedure Full Procedure Date February 22, 2024 Pre-Procedure Diagnosis Pre-Procedure Diagnosis: STEMI AUC Score AUC Score: 09 Post-Procedure Diagnosis Post-Procedure Diagnosis: Severe CAD and Successful PCI Procedure(s) Performed Procedure(s) Performed: Coronary Angiography and Drug Eluting Stent French Tutor Jason Jimenez MD, PhD Estimated Blood Loss Estimated Blood Loss: 10 cc Medication(s) Medication(s): Fentanyl, Heparin, Lidocaine 1%, Nicardipine, Nitroglycerin and Versed Summary of Findings Brief description: Patient was brought to the cardiac catheterization suite where he was shaved and prepped in a sterile fashion. Sedated using IV Versed and fentanyl. Soft tissues of the right wrist were anesthetized using 2 mL of 1% Xylocaine. The right radial artery was accessed with a modified Seldinger technique and a 6 Syriac radial artery glide sheath was placed. All catheters were advanced and exchanged over a 0.035 J-tip wire. Patient had received heparin in the emergency department so the ACT was checked and additional heparin was provided throughout the case as needed to maintain therapeutic anticoagulation. Patient also received intra-arterial nicardipine and nitroglycerin to prevent radial artery spasm. Left coronary angiography was performed in orthogonal views using a 6 Syriac EBU 3.0 guide catheter. We proceeded immediately to PCI. A BMW reversal guidewire was advanced and positioned distally in the LAD. The occlusion was predilated using a 2.5 x 12 mm trek balloon at 8 miles x 2 Patient had reperfusion arrhythmia with frequent ectopy. Decision was made to start amiodarone as a bolus followed by drip. A 2.75 x 26 mm Stevie drug-eluting stent was then positioned across the lesion and deployed at 12 The stent balloon was removed and angiography was performed. The midportion of the stent was postdilated using a 3.0 x 12 mm NC Jose balloon at 12 miles. A second inflation was done up to the proximal edge at 14 miles. This balloon was then removed. Chemical Laboratory Tester angiography was performed. Decision was made to attempt "unjailing" of the diagonal branch. Therefore a second BMW universal guidewire was advanced. However, we had significant difficulty in advancing the wire (would advance into the stent but could not be directed into the diagonal). Ultimately, we removed the wire and pulled back the original BMW wire and redirected down the diagonal. The stent struts were dilated using a 2.0 x 6 mm noncompliant balloon at 10 miles across the struts and then the proximal part of the diagonal at 6 miles. Chemical Laboratory Tester angiography was performed. The wire and the balloon were removed. Angiography was performed and revealed clot at the proximal stent edge. Likely was some dissection associated with the initial stent implantation as well as advancing the second wire which was difficult to pass into the stent. We advanced a 3.0 x 8 mm trek balloon and predilated the proximal part of the stent and then just prior to the stent at 8 miles. The balloon was then removed. A 3.0 x 12 mm Stevie drug-eluting stent was then advanced and positioned in an overlapped fashion proximal to the first stent. It was then deployed at 14 miles Stent balloon was removed and coronary angiography was performed. The guidewire was removed followed by the guide catheter. We then moved to complete the diagnostic coronary angiography. Right coronary angiography was performed using a 5 Syriac JR4 diagnostic catheter. Orthogonal views were obtained. Diagnostic catheter was removed. Radial artery sheath was removed. Hemostasis was obtained using the TR band. Patient was hemodynamically stable (he did receive 100 mcg of Jose-Synephrine twice during the case for borderline low blood pressure) and asymptomatic. He was therefore transported to the ICU for further workup and management. This ended the case. Coronary angiography findings: TQO-dogdg-lcakfyd vessel bifurcating into LAD and circumflex. Mild luminal irregularities. BUN-memht-jobplzl. Ostial to early proximal 20-30% stenosis followed by 100% occlusion with staining just before the septal branch. SHANNON [address] flow[address] Culprit for anterolateral ST elevation MN. NQl-keopt-lrlggwf and nondominant vessel. Travels in the AV groove. First OM is large and branching followed almost immediately by a large and branching second OM. The early distal AV groove vessel continues providing an atrial branch. After this it tapers rapidly in the AV groove providing some small lateral branches before it terminates. There is mild luminal irregularities scattered throughout the circumflex and its branches. The ostial to proximal portion of the OM1 has a 50% stenosis. GNS-sxjlz-ypbkrkq and dominant. Ostium arises very anteriorly. Proximal segme nt with up to 40 to 50% stenosis. Mid segment with diffuse mild disease less than 30% stenosis. It then appears to bifurcate early into a large multi branching PLB and a large PDA. These vessels have no more than mild scattered plaques. PCI of LAD-0% residual stenosis post PCI after implantation of 2 overlapped drug-eluting stents covering the proximal and early mid LAD SHANNON-3 flow post PCI No evidence of dissection or perforation post PCI Diagonal branch with SHANNON-3 flow after PTCA of the ostium across the stent struts There is 50% stenosis of the early distal LAD. Summary: 1. Acute occlusion of the proximal LAD is culprit for ST elevation MN. Successful PCI of the LAD with implantation of 2 overlapped drug-eluting stents. Postdilatation of the diagonal ostium which was jailed. 2. Mild to borderline moderate coronary disease in the remainder of the vessels as described. 3. Patient will be on dual antiplatelet therapy with aspirin 81 mg daily and Brilinta 90 mg p.o. twice daily for at least 1 to 2 years. 4. Initiate guideline directed medical therapy for secondary prevention of coronary disease to include; high intensity statin therapy, beta-clay, plus or minus DESHAWN inhibitor/ARB as indicated. Hemodynamics Rest Ao:: 113/81 mmHg Final Ao: 93/77 mmHg LV: Not performed Recommendations Recommendations: PCI without planned CABG Radiation Exposure (mGy) 3249 mGy, fluoroscopy time 18.1 minutes Contrast (mls) 240 mL Anesthesia 2 mg Versed, 100 mcg fentanyl IV. Start time 2155, end time 2250 Procedural Complication(s) None Disposition ICU I attest to the content of the Intraoperative Record and any orders documented therein. Any exceptions are noted below. [facility] Card Cath Procedure Codes Cardiac Catheterization Procedure 1: Cardiovascular Cath Procedures: 94197 Coronaries Moderate Sedation Procedure 1: Sedation/Anesthesia: 21670 Mod Sedation by the same physician;Init15 Min Child Age 5 & Up (Initial 15 minutes, start time 2155) Procedure 2: Sedation/Anesthesia: 18382 Mod Sedation by the same physician; Ea [id number] Minutes (Additional 39 minutes, end time 2250) Stenting Procedure 1: Cardiovascular Stent Procedures: 85986 Perc transluminal revascularization of acute sub/total occl, aMI (LAD) PG Care Time/CCT Total # of Minutes Spent Total Time Spent with Patient: Total time spent is greater than 50% in coordination of care (as documented) at patient's floor/unit and/or counseling patient:
--- NOTE | 2024-02-22 23:38 | History & Physical Report ---
Date of Service February 22, 2024 Assessment & Plan (1) ST elevation (STEMI) myocardial infarction: Plan: Proximal LAD occlusion status post PCI Patient currently comfortable. Stress leukocytosis Transaminitis, history abnormal LFTs from 2013 as per records, attributed to gallbladder disease as per remote records hypothyroidism, euthyroid as of recent outpatient TSH prediabetes, hemoglobin A1c of 5.8 from November 2023 ICU monitoring post PCI Management of cardiac issues as per senior ssis developer. Follow WBC, peripheral blood smear if persistent Follow LFTs, liver ultrasound/may need to hold statin Rx if with progression DVT prophylaxis. as per Cardiology Full code Text document was generated using [employer] voice recognition software. It may contain grammatical or spelling errors. Kindly contact undersigned for clarification of any documentation item in question. History of Present Illness Chief Complaint: Chest pain Primary Care Provider: Dr. Marlena Killian History obtained from patient and records. Medical history significant for GERD, hypothyroidism, prediabetes. Last confinement 2016 under General Surgery service for elective cholecystectomy for chronic cholecystitis. Last night, patient experienced transient left-sided chest discomfort while out in the cold to go to the grocery. After dinner tonight, patient experienced left-sided chest pain going to both shoulders. No cough, no SOB. Denies fever, chills Symptoms unrelieved by antacid Rx. Patient drove himself to the ER. ST elevations noted on EKG done at the ER Heart alert called. Patient underwent emergent cardiac catheterization. Acute occlusion of the proximal LAD found with subsequent PCI (implantation of 2 overlapped drug-eluting stents). Patient currently comfortable at ICU. 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 Allergies Allergy/AdvReac Type Severity Reaction Status Date / Time No Known Drug Allergies Allergy Unknown NKDA Verified 04/10/23 09:25 Home Medications Medication Instructions Recorded Confirmed Type Multivitamin 1 tab PO QAM #0 tabs 09/18/16 02/22/24 History esomeprazole magnesium 20 mg 20 mg PO DAILY #30 caps 08/16/18 02/22/24 Rx capsule,delayed release levothyroxine 88 mcg tablet 100 mcg PO DAILY 02/22/24 02/22/24 History rosuvastatin 5 mg tablet 5 mg PO DAILY 02/22/24 02/22/24 History Past Med/Surg History Problem List Leukocytosis Elevated troponin I level (Acute) Chest pain (Acute) ST elevation (STEMI) myocardial infarction (Acute) Screening PSA (prostate specific antigen) Unwanted fertility Back pain GERD (gastroesophageal reflux disease) (Acute) Hypercholesterolemia (Acute) Hypothyroidism (Acute) Chronic calculous cholecystitis Social History Smoking Status: Never smoker Hx Alcohol Use: Yes Alcohol type: beer Hx Substance Use: No Preferred Language: Lithuanian Communication Ability: Effective Pre Coder Required: No Beliefs That Will Affect Care: None Current Living Situation: Spouse and Family Current Living Situation Comment: Patient lives at home with spouse and two children ages 14 and 17 Other Information That Helps Us Care for You: No Feels Safe at Home: Yes Safety Concerns: Feels Safe At This Time Assistive Devices: Glasses Review of Systems Review of Systems: As per HPI, all other systems reviewed and negative Physical Exam Physical Exam: GENERAL: Comfortable, pleasant, no respiratory distress SKIN: Normal color, warm HEENT: Baxter palpebral conjunctivae, no ptosis, dry buccal mucosa NECK : Supple, no tenderness CHEST : CTA, no tenderness HEART : RRR, no obvious murmurs ABDOMEN: Some distention, nontender EXTREMITIES : No LE swelling/tenderness, no other conspicuous deformities noted NEUROLOGIC : Coherent, no facial asymmetry, no other gross focality Results & Data Results & Data Vital Signs (Past 12 Hours) Vital Signs Temp Pulse Pulse Resp BP BP Pulse Ox 02/22/24 21:42 108 H 23 129/79 95 02/22/24 21:36 95 H 23 95 02/22/24 21:36 97 H 23 130/79 95 02/22/24 21:36 95 02/22/24 21:30 106 H 17 132/92 98 02/22/24 21:27 106 H 18 146/103 H 98 02/22/24 21:22 108 H 02/22/24 21:15 36.5 C 109 H 22 146/99 H 98 O2 Del Method 02/22/24 21:42 02/22/24 21:36 Room Air 02/22/24 21:36 Room Air 02/22/24 21:36 Room Air 02/22/24 21:30 02/22/24 21:27 02/22/24 21:22 02/22/24 21:15 Room Air Laboratory Results Laboratory Results WBC 21.10 K/ul (4.8-10.8) H 02/22/24 21: RBC 5.33 M/uL (4.70-6.10) 02/22/24 21: Hgb 15.7 g/dl (14.0-18.0) 02/22/24 21: POC Hgb 16.0 g/dl (14.0-18.0) 02/22/24 21: Hct 46.0 % (42.0-52.0) 02/22/24 21: POC Hct 47 % (42-52) 02/22/24 21: MCV 86.3 fL (80.0-100.0) 02/22/24 21: MCH 29.5 pg (25.0-34.0) 02/22/24 21: MCHC 34.1 g/dL (32.0-36.0) 02/22/24 21: RDW Std Deviation 37.1 fL (36.4-46.3) 02/22/24: RDW Coeff of Shaheen 11.8 % (11.5-14.5) 02/22/24: Plt Count 364 K/uL (130-400) 02/22/24 21: MPV 8.7 fL (9.4-12.4) L 02/22/24 21: Immature Gran % (Auto) 0.5 % 02/22/24 21: Neut % (Auto) 81.7 % 02/22/24 21: Lymph % (Auto) 12.4 % 02/22/24 21: Bosque % (Auto) 4.7 % 02/22/24 21: Eos % (Auto) 0.5 % 02/22/24 21: Baso % (Auto) 0.2 % 02/22/24 21: Neut # (Auto) 17.25 K/uL (1.40-6.50) H 02/22/24 21: Lymph # (Auto) 2.61 K/uL (1.20-3.40) 02/22/24 21:23 Bosque # (Auto) 0.99 K/uL (0.11-0.59) H 02/22/24 21:23 Eos # (Auto) 0.10 K/uL (0.00-0.50) 02/22/24 21:23 Baso # (Auto) 0.05 K/uL (0.00-0.20) 02/22/24 21:23 Immature Gran # (Auto) 0.10 K/uL (0.01-0.20) 02/22/24 21: PT 10.6 Seconds (9.0-12.0) 02/22/24 21: INR 1.0 (0.9-1.1) 02/22/24 21: APTT 26 Seconds (21-31) 02/22/24: PTT Ratio 1.0 02/22/24 21: Activ Coag Time Kaolin 233 SECONDS (94-140) H 02/22/24 22:45 POC Sodium 142 mmol/L (135-144) 02/22/24 21: Sodium 141 mmol/L (136-145) 02/22/24 21:23 POC Potassium 3.6 mmol/L (3.3-5.0) 02/22/24 21: Potassium 3.6 mmol/L (3.5-5.1) 02/22/24 21: POC Chloride 103 mmol/L (101-112) 02/22/24 21: Chloride 103 mmol/L (98-107) 02/22/24 21: Carbon Dioxide 29 mmol/L (21-32) 02/22/24 21: POC Total CO2 28 mmol/L (24-31) 02/22/24 21: Anion Gap 9 (3-11) 02/22/24 21:23 POC Anion Gap 16.0 mmol/L (16-25) 02/22/24 21: POC BUN 13 mg/dl (7-18) 02/22/24 21: BUN 14 mg/dl (6-23) 02/22/24 21: Creatinine 1.01 mg/dl (0.6-1.4) 02/22/24 21: POC Creatinine 1.1 mg/dl (0.6-1.3) 02/22/24 21: Est Cr Clr Drug Dosing 77.7 ml/min 02/22/24 21:23 eGFR 87.28 02/22/24 21:23 BUN/Creatinine Ratio 13.9 (10-20) 02/22/24 21:23 Glucose 102 mg/dl (70-99(Fasting)) H 02/22/24 21:23 POC Glucose (other) 106 mg/dl (70-99) H 02/22/24 21:26 Calcium 10.0 mg/dl (8.6-10.3) 02/22/24 21: POC Ioniz Calcium Nawaf 1.22 mmol/l (1.12-1.32) 02/22/24 21: Total Bilirubin 1.8 mg/dl (0.2-1.0) H 02/22/24 21: AST 37 U/L (13-39) 02/22/24 21: ALT 64 U/L (7-52) H 02/22/24 21:23 Alkaline Phosphatase 140 U/L (34-104) H 02/22/24 21:23 Troponin I High Sens 294.6 pg/ml (0-20) H* 02/22/24 21:23 Total Protein 8.1 gm/dl (6.0-8.3) 02/22/24 21: Albumin 5.0 gm/dl (3.4-5.0) 02/22/24 21: Globulin 3.1 gm/dl (2.5-4.0) 02/22/24 21:23 Albumin/Globulin Ratio 1.6 (0.9-2) 02/22/24 21: Lipase 54 U/L (11-82) 02/22/24 21:23 Impressions Chest X-Ray 02/22/24 21:20 Exam(s): XR CXR 1 VIEW EXAM: XR Chest, 1 View CLINICAL HISTORY: Reason for exam: Chest pain, nonspecific. TECHNIQUE: Frontal view of the chest. COMPARISON: No relevant prior studies available. FINDINGS: Lungs: Unremarkable. No consolidation. Pleural space: Unremarkable. No pleural effusion or pneumothorax. Heart: Unremarkable. No cardiomegaly or pulmonary vascular congestion. Bones/joints: No acute fracture. No dislocation. IMPRESSION: No evidence of acute cardiopulmonary disease. Electronically signed by: Aleena Seth M.D. 02/22/24 23:14 PM Diagnostic Findings EKG as per my interpretation :Rate 105, sinus tachycardia, LAD, LAFB, ST elevation septal leads, reciprocal ST depression inferior leads, PVCs (1) ST elevation (STEMI) myocardial infarction Involved coronary artery: LAD coronary artery Qualified Code(s): I21.02 - ST elevation (STEMI) myocardial infarction involving left anterior descending coronary artery
--- NOTE | 2024-02-23 00:04 | Critical Care Consultation ---
Date of Consultation February 23, 2024 Assessment & Plan (1) ST elevation (STEMI) myocardial infarction: 58-year-old male presents to the ICU following anterior STEMI for which she is now post cath with PCI with KAYLEN x 2 to the LAD. - Post catheterization patient continues to have mild residual chest pain. Repeat EKG shows improvement in ST elevation in anterior leads - Currently soft blood pressure but acceptable limits. Would hold off on beta-clay for the time being until pressures improved. He did receive phenylephrine during catheterization. Will follow-up TTE this morning - Continue ASA, Brilinta, statin. Metoprolol as BP tolerates - Trend troponin for peak -Continuous monitoring on telemetry -Maximize electrolytes -Will follow cardiology recommendations (2) GERD (gastroesophageal reflux disease): Continue PPI (3) Hypercholesterolemia: Continue statin (4) Hypothyroidism: Continue Synthroid (5) Leukocytosis: Likely reactionary following [place]. Currently patient is afebrile with low suspicion for infectious process. Will trend WBC and trend fever curve as well. History of Present Illness Attending Physician: Juliana Cummings MD History of Present Illness Patient is a 58-year-old male with past medical history of GERD, hypercholesterolemia, hypothyroid who presented to the emergency department earlier this evening with complaints of acute onset of chest pain. Patient states that he had chest pain the night before which was brief , But did not last. This evening patient began to have chest pain again around 5 PM but continued to progress. On arrival to the emergency department patient was found to have ST elevation in anterior leads. Heart alert was initiated and he was taken to the [facility] where he was found to have 100% occlusion of the LAD and underwent PCI x 2 to LAD. Patient was noted to have some hypotension in the [facility] and was given phenylephrine. On arrival to the ICU the patient is alert and oriented without acute distress. Blood pressure is soft but adequate MAP's. He is currently maintaining oxygen saturation on room air. As of now, patient reports pain in his left wrist which is new and is not reproducible. He also noted mild chest pain along the anterior chest wall subleft clavicular area. Patient denies recent illness or fevers, headache or syncope, changes in vision, shortness of breath, cough or congestion, changes in gait, swelling in hands or feet. Patient to remain in ICU for monitoring overnight following STEMI Allergies Allergy/AdvReac Type Severity Reaction Status Date / Time No Known Drug Allergies Allergy Unknown NKDA Verified 04/10/23 09:25 Home Medications Medication Instructions Recorded Confirmed Type Multivitamin 1 tab PO QAM #0 tabs 09/18/16 02/22/24 History esomeprazole magnesium 20 mg 20 mg PO DAILY #30 caps 08/16/18 02/22/24 Rx capsule,delayed release levothyroxine 88 mcg tablet 100 mcg PO DAILY 02/22/24 02/22/24 History rosuvastatin 5 mg tablet 5 mg PO DAILY 02/22/24 02/22/24 History Patient History Social History Smoking Status: Never smoker Hx Alcohol Use: Yes Alcohol type: beer Hx Substance Use: No Preferred Language: Citizen Of [place] Communication Ability: Effective Ceramic Sprayer Required: No Beliefs That Will Affect Care: None Current Living Situation: Spouse and Family Current Living Situation Comment: Patient lives at home with spouse and two children ages 14 and 17 Other Information That Helps Us Care for You: No Feels Safe at Home: Yes Safety Concerns: Feels Safe At This Time Assistive Devices: Glasses Review of Systems Review of Systems: All systems reviewed & are unremarkable except as noted in HPI & below Physical Exam Constitutional: cooperative and comfortable Eyes: PERRL, conjunctivae normal, anicteric sclerae ENMT: external ear and nose normal, oropharynx normal Neck: trachea midline, no thyromegaly Respiratory: normal respiratory effort, lungs clear to auscultation Cardiovascular: RRR, no murmur, no edema Heart Sounds: normal S1 and normal S2 Extremities: no edema Gastrointestinal (Abdomen): normal bowel sounds, soft, nontender, no hepatosplenomegaly Musculoskeletal: no cyanosis or clubbing, extremities motor strength 5/5 Skin: no rashes, warm and dry Neurologic: PERRL, EOMI, accommodation nl, no face palsy, no dysarthria Psychiatric: A+Ox3, euthymic affect Results & Data Results & Data Vital Signs (Past 12 Hours) Vital Signs Temp Pulse Pulse Resp BP BP Pulse Ox 02/22/24 21:42 108 H 23 129/79 95 02/22/24 21:36 95 H 23 95 02/22/24 21:36 97 H 23 130/79 95 02/22/24 21:36 95 02/22/24 21:30 106 H 17 132/92 98 02/22/24 21:27 106 H 18 146/103 H 98 02/22/24 21:22 108 H 02/22/24 21:15 36.5 C 109 H 22 146/99 H 98 O2 Del Method 02/22/24 21:42 02/22/24 21:36 Room Air 02/22/24 21:36 Room Air 02/22/24 21:36 Room Air 02/22/24 21:30 02/22/24 21:27 02/22/24 21:22 02/22/24 21:15 Room Air Coding Level of Care Code 95200 IN/OBS CONSULT LVL 3,45M Diagnoses ST elevation (STEMI) myocardial infarction I21.02 Involved coronary artery: LAD coronary artery GERD (gastroesophageal reflux disease) K21.9 Hypercholesterolemia E78.00 Hypothyroidism E03.9 Leukocytosis D72.829 Time Spent (min) 49 (1) ST elevation (STEMI) myocardial infarction Involved coronary artery: LAD coronary artery Qualified Code(s): I21.02 - ST elevation (STEMI) myocardial infarction involving left anterior descending coronary artery
[2024-02-23] MEDS: TICAGRELOR 90 MG TAB PO ONE (00:34)
[2024-02-23] MEDS ORDERED: ACETAMINOPHEN 325 MG TAB PO PRN (00:37)
[2024-02-23 00:42] LABS: Basophils # (auto) 0.04 K/uL (0.00-0.20); Basophils % (auto) 0.2 %; Eosinophils # (auto) 0.02 K/uL (0.00-0.50); Eosinophils % (auto) 0.1 %; Hematocrit (blood only) 39.9 % (42.0-52.0); Hemoglobin 13.4 g/dl (14.0-18.0); Immature Granulocytes # (auto) 0.07 K/uL (0.01-0.20); Immature Granulocytes % (auto) 0.3 %; Lymphocytes # (auto) 1.69 K/uL (1.20-3.40); Mean Corpuscular Hemoglobin 29.3 pg (25.0-34.0); Mean Corpuscular Hgb Conc 33.6 g/dL (32.0-36.0); Mean Corpuscular Volume 87.3 fL (80.0-100.0); Monocytes # (auto) 0.59 K/uL (0.11-0.59); Monocytes % (auto) 2.8 %; Neutrophils # (auto) 18.63 K/uL (1.40-6.50); Neutrophils % (auto) 88.6 %; Platelet Count 321 K/uL (130-400); RDW Coefficient of Variation 11.9 % (11.5-14.5); RDW Standard Deviation 37.9 fL (36.4-46.3); Red Blood Count 4.57 M/uL (4.70-6.10); White Blood Count 21.04 K/ul (4.8-10.8)
[2024-02-23] MEDS ORDERED: oxyCODONE HCL IR 5 MG TAB (IMMEDIATE RELEASE) PO PRN (00:44)
[2024-02-23] MEDS: POTASSIUM CHLORIDE CRTAB 20 MEQ TABCR PO STA (00:46)
[2024-02-23] MEDS: POTASSIUM CHLORIDE / WTR 10 MEQ/100 ML PLCT IV SCH (00:46)
[2024-02-23] MEDS: ACETAMINOPHEN 500 MG TAB PO PRN (00:47)
[2024-02-23 00:56] LABS: Chol HDL Ratio 3.9 (0-5)
[2024-02-23] MEDS ORDERED: LORazepam 0.5 MG TAB PO PRN (00:56)
[2024-02-23] MEDS ORDERED: PROMETHAZINE 6.25 MG/50.25 ML BAG IV PRN (00:56)
[2024-02-23 01:06] LABS: Troponin I High Sensitivity 11119.3 pg/ml (0-20)
[2024-02-23 05:26] LABS: Albumin Level 3.7 gm/dl (3.4-5.0); Bilirubin Direct 0.2 mg/dl (0-0.2); Bilirubin,Total 1.9 mg/dl (0.2-1.0); Magnesium 1.9 mg/dl (1.7-2.4); Phosphorus 3.1 mg/dl (2.5-4.9); Total Protein 6.2 gm/dl (6.0-8.3)
[2024-02-23 06:05] LABS: Troponin I High Sensitivity 38852.5 pg/ml (0-20)
[2024-02-23] MEDS: LEVOTHYROXINE SODIUM 100 MCG TABLET PO SCH (06:33)
[2024-02-23 07:25] LABS: Estimated Average Glucose 126 mg/dl
[2024-02-23 07:32] LABS: Calcium 9.2 mg/dl (8.6-10.3); Creatinine Clr Calc Pharmacy 103.1 ml/min; Potassium 4.3 mmol/L (3.5-5.1)
[2024-02-23] MEDS: MAGNESIUM SULFATE / D5W 1 GM/100 ML BAG IV ONE (07:51)
[2024-02-23] MEDS: PANTOprazole 40 MG TAB PO SCH (07:59)
[2024-02-23] MEDS: ASPIRIN 81 MG ECTAB PO SCH (07:59)
[2024-02-23] MEDS: METOPROLOL TARTRATE 25 MG TAB PO SCH (07:59)
[2024-02-23] MEDS: ROSUVASTATIN CALCIUM 10 MG TAB PO SCH (08:00)
[2024-02-23] MEDS: TICAGRELOR 90 MG TAB PO SCH (08:00)
[2024-02-23] MEDS: MULTIVITAMIN TAB PO SCH (09:38)
--- NOTE | 2024-02-23 09:54 | Cardiology Consultation ---
Date of Consultation February 22, 2024 Assessment & Plan (1) ST elevation (STEMI) myocardial infarction: Proximal LAD territory status post PCI with 2 overlapped drug-eluting stents. Anticipate extensive LAD territory wall motion abnormalities. Probable mild to moderate reduction in LV EF. If the apex is akinetic to dyskinetic he will be at some risk for LV thrombus until the segments pickle maker contraction. Definity will likely be used to evaluate further. We may need to consider limited echo prior to discharge. In the meantime, he will maintain dual antiplatelet therapy with aspirin 81 mg daily and Brilinta 90 mg p.o. twice daily. Cannot currently tolerate beta-clay because of hypotension. Hopefully, we will be able to add at least low-dose beta-clay and/or angiotensin receptor clay. If his EF is significantly reduced additional therapies will be recommended. Therefore, much of the eventual discharge regimen will await results of his echo. We will strongly encourage cardiac rehab after discharge, improvement in his diet with regard to heart health, and compliance with his medical regimen. If he remains stable throughout today then he would be appropriate for transfer to stepdown unit this evening. (2) Hypercholesterolemia: Patient is high risk. On rosuvastatin 5 mg daily his LDL is 106 mg/dL and his HDL is 41 mg/dL. Will need more aggressive LDL reduction given his high risk status. I increased his rosuvastatin to 10 mg daily and we will recheck his lipids after 3 months therapy. Plan Awaiting echo results. Will follow. History of Present Illness Reason for Consultation: Acute ST elevation [place] Attending Physician: Juliana Cummings MD History of Present Illness 58-year-old gentleman developed sudden onset severe chest discomfort and shortness of breath while at a holiday republican. Came to the emergency department where he was found to have EKG evidence of acute anterolateral ST elevation [place]. A "heart alert" was called and on my arrival he continued with chest discomfort and EKG changes. He was provided Brilinta 180 mg p.o. x 1 in the emergency department in addition to aspirin and a bolus of heparin. He was taken emergently to the cardiac catheterization suite where he underwent diagnostic coronary angiography and PCI with implantation of 2 overlapped drug-eluting stents placed in the proximal to mid LAD. Also PTCA across the stent struts at the diagonal branch which was jailed by the original stent. He was then admitted to the ICU for further workup and management. Patient is currently without any anginal chest pain. He does have some mild pleuritic pain. No shortness of breath. He was borderline hypotensive and received fluids as well as some potassium overnight. Denies any shortness of breath, orthopnea, PND, racing heartbeat, palpitations, or edema. He is again accompanied by his . He had an echocardiogram performed just prior to my arrival but this is not yet available for my review. Patient has a strong family history of coronary disease. Both mother and fa ther. His mother is having suffered a stroke shortly after stent implantation. He does not smoke. Minimal drinking. Allergies Allergy/AdvReac Type Severity Reaction Status Date / Time No Known Drug Allergies Allergy Unknown NKDA Verified 04/10/23 09:25 Home Medications Medication Instructions Recorded Confirmed Type Multivitamin 1 tab PO QAM #0 tabs 09/18/16 02/22/24 History esomeprazole magnesium 20 mg 20 mg PO DAILY #30 caps 08/16/18 02/22/24 Rx capsule,delayed release levothyroxine 88 mcg tablet 100 mcg PO DAILY 02/22/24 02/22/24 History rosuvastatin 5 mg tablet 5 mg PO DAILY 02/22/24 02/22/24 History Patient History Social History Smoking Status: Never smoker Hx Alcohol Use: Yes Alcohol type: beer Hx Substance Use: No Preferred Language: Palestinian Communication Ability: Effective Crop Picker Required: No Beliefs That Will Affect Care: None Current Living Situation: Spouse and Family Current Living Situation Comment: Patient lives at home with spouse and two children ages 14 and 17 Other Information That Helps Us Care for You: No Feels Safe at Home: Yes Safety Concerns: Feels Safe At This Time Assistive Devices: Glasses Review of Systems Review of Systems: Negative except as per HPI Physical Exam Constitutional: WD/WN, vitals as above Eyes: Extraocular muscles intact, sclera are anicteric ENMT: [place] is pink moist and intact Neck: No JVD Respiratory: Clear to auscultation bilaterally. No wheezing, rhonchi, or rales. Good air movement. Cardiovascular: Regular rate and rhythm. S4 gallop. I do not appreciate any rubs or murmurs today. Normal pulses distally. No edema. Musculoskeletal: no cyanosis or clubbing, extremities motor strength 5/5 (Right radial access is clean dry and intact. Good distal perfusion.) Neurologic: Cognition is intact. Speech is fluent. No focal deficits. Psychiatric: A+Ox3, euthymic affect Results & Data Vital Signs (Past 12 Hours) Vital Signs Temp Pulse Pulse Resp BP BP Pulse Ox 02/23/24 08:09 82 25 H 94 02/23/24 08:00 103/74 02/23/24 07:51 91 H 25 H 96 02/23/24 07:45 107/79 02/23/24 07:42 26 H 94 02/23/24 07:30 104/71 02/23/24 07:15 94/73 L 02/23/24 07:09 77 20 96 02/23/24 07:03 84 21 98 02/23/24 07:00 105/74 02/23/24 06:30 98/67 L 02/23/24 06:30 79 17 97 02/23/24 06:15 96/65 L 02/23/24 06:15 75 19 96 02/23/24 06:00 91/69 L 02/23/24 06:00 79 21 97 02/23/24 05:45 91/66 L 02/23/24 05:45 80 18 96 02/23/24 05:30 96/71 L 02/23/24 05:30 96/71 L 02/23/24 05:30 96/71 L 02/23/24 05:21 86 21 96 02/23/24 05:15 104/66 02/23/24 05:00 101/68 02/23/24 05:00 101/68 02/23/24 05:00 81 18 95 02/23/24 04:45 103/65 02/23/24 04:45 103/65 02/23/24 04:45 82 21 95 02/23/24 04:30 102/71 02/23/24 04:30 102/71 02/23/24 04:24 87 21 96 02/23/24 04:15 94/71 L 02/23/24 04:15 94/71 L 02/23/24 03:54 80 19 94 02/23/24 03:51 81 19 94 02/23/24 03:30 101/68 02/23/24 03:30 101/68 02/23/24 03:30 92 H 21 94 02/23/24 03:00 94/66 L 02/23/24 02:57 76 20 95 02/23/24 02:30 89/67 L 02/23/24 02:30 89/67 L 02/23/24 02:24 84 20 95 02/23/24 02:15 85 19 94 02/23/24 02:15 98/69 L 02/23/24 02:15 98/69 L 02/23/24 02:15 98/69 L 02/23/24 02:00 98/71 L 02/23/24 01:51 81 20 94 02/23/24 01:36 77 20 94 02/23/24 01:30 90/65 L 02/23/24 01:30 90/65 L 02/23/24 01:30 90/65 L 02/23/24 01:15 93/64 L 02/23/24 01:15 93/64 L 02/23/24 01:15 76 21 95 02/23/24 01:06 80 22 95 02/23/24 00:45 103/71 02/23/24 00:45 84 16 84 L 02/23/24 00:30 89/70 L 02/23/24 00:30 89/70 L 02/23/24 00:27 79 17 92 02/23/24 00:15 86/63 L 02/23/24 00:09 72 20 94 02/23/24 00:03 91 H 20 91 02/23/24 00:00 101/75 02/23/24 00:00 101/75 02/23/24 00:00 101/75 02/23/24 00:00 75 02/22/24 23:57 74 15 96 02/22/24 23:46 36.6 C 74 20 89/68 L 98 02/22/24 23:45 70 21 93 02/22/24 23:45 89/68 L 02/22/24 23:35 98/66 L 02/22/24 23:35 98/66 L 02/22/24 23:33 73 13 97 02/22/24 23:18 78 26 H 90 02/22/24 23:10 93/65 L 02/22/24 23:10 93/65 L 02/22/24 21:42 108 H 23 129/79 95 O2 Del Method 02/23/24 08:09 02/23/24 08:00 02/23/24 07:51 02/23/24 07:45 02/23/24 07:42 02/23/24 07:30 02/23/24 07:15 02/23/24 07:09 02/23/24 07:03 02/23/24 07:00 02/23/24 06:30 02/23/24 06:30 02/23/24 06:15 02/23/24 06:15 02/23/24 06:00 02/23/24 06:00 02/23/24 05:45 02/23/24 05:45 02/23/24 05:30 02/23/24 05:30 02/23/24 05:30 02/23/24 05:21 02/23/24 05:15 02/23/24 05:00 02/23/24 05:00 02/23/24 05:00 02/23/24 04:45 02/23/24 04:45 02/23/24 04:45 02/23/24 04:30 02/23/24 04:30 02/23/24 04:24 02/23/24 04:15 02/23/24 04:15 02/23/24 03:54 02/23/24 03:51 02/23/24 03:30 02/23/24 03:30 02/23/24 03:30 02/23/24 03:00 02/23/24 02:57 02/23/24 02:30 02/23/24 02:30 02/23/24 02:24 02/23/24 02:15 02/23/24 02:15 02/23/24 02:15 02/23/24 02:15 02/23/24 02:00 02/23/24 01:51 02/23/24 01:36 02/23/24 01:30 02/23/24 01:30 02/23/24 01:30 02/23/24 01:15 02/23/24 01:15 02/23/24 01:15 02/23/24 01:06 02/23/24 00:45 02/23/24 00:45 02/23/24 00:30 02/23/24 00:30 02/23/24 00:27 02/23/24 00:15 02/23/24 00:09 02/23/24 00:03 02/23/24 00:00 02/23/24 00:00 02/23/24 00:00 02/23/24 00:00 02/22/24 23:57 02/22/24 23:46 Room Air 02/22/24 23:45 02/22/24 23:45 02/22/24 23:35 02/22/24 23:35 02/22/24 23:33 02/22/24 23:18 02/22/24 23:10 02/22/24 23:10 02/22/24 21:42 PG Care Time/CCT Total # of Minutes Spent Total Time Spent with Patient: Total time spent is greater than 50% in coordination of care (as documented) at patient's floor/unit and/or counseling patient: Coding Level of Care Code 05571 IN/OBS CONSULT LVL 4,60M Diagnoses ST elevation (STEMI) myocardial infarction I21.02 Involved coronary artery: LAD coronary artery Hypercholesterolemia E78.00 (1) ST elevation (STEMI) myocardial infarction Involved coronary artery: LAD coronary artery Qualified Code(s): I21.02 - ST elevation (STEMI) myocardial infarction involving left anterior descending coronary artery
--- NOTE | 2024-02-23 10:28 | XCELERA ---
[id number] \\[id number]
--- NOTE | 2024-02-23 10:36 | Communication Note ---
Date of Service: February 23, 2024 Seen and examined by myself after signout from Romero CRUZ. Asymptomatic, not lightheaded, not dizzy. Was given metoprolol this morning. Now having intermittent heart block. Blood pressure 100/75. Did have an occasional run of 6 beats of ventricular tachycardia. Placing pacer pads on the patient. Sent [place] text update to cardiology, continued ICU observation secondary to arrhythmias in the setting of acute ST elevation [place]. I have personally spent 30 minutes of critical care time in the direct management of this patient. This is a life/limb threatening event. This includes time spent evaluating patient, direct bedside care, chart review, placing orders, interpretation of diagnostic studies, discussion with consultants, patient, and/or family members regarding treatment decisions, as well as other required patient management activities. This time is exclusive of all separately billable procedures, and teaching time and separate from and in addition to any other critical care service time. Coding Level of Care Code 48920 CRITICAL CARE EA ADD 30M Additional Critical Care Time Additional 30min Critical Care Time: Yes - 27736 Additional Codes Critical Care Time - Additional 30min Critical Care Time: Yes - [id number] ([id number])
--- NOTE | 2024-02-23 11:49 | Hospitalist Progress Note ---
Date of Service February 23, 2024 Assessment & Plan (1) ST elevation (STEMI) myocardial infarction: Plan: 58-year-old male with PMH of GERD, hypothyroidism, prediabetes who presented with left-sided chest pain going to both shoulders was noted to have STEMI at presentation in the ED and heart alert was called. He underwent emergent cardiac cath and stenting. He is being managed for the following: Proximal LAD occlusion status post PCI STEMI Possible small apical thrombus Patient currently comfortable. Status post implantation of 2 overlapping drug- eluting stents 02/22/2024. Post cath echo [02/23/2024]with EF of 40 to 45%, LAD territory wall abnormalities noted, possible small apical thrombus. Patient having intermittent heart block and did have occasional run of 6 beats of ventricular tachycardia. Patient currently being managed in ICU 2/2 arrhythmia ISO acute STEMI. Pacer pads placed on patient. Patient started on Eliquis (d/t concern of apical thrombus) and Brilinta per cardiology. Continue. LDL 106. Patient's rosuvastatin has been increased to 10 mg daily from 5 mg daily. Will need titration (up/down) down the road as tolerated/appropriate give chronic transaminitis. Will need repeat LFT in 1 month's times. Cardiology on board, plan to repeat echo prior to discharge, plan to continue monitoring in ICU for now. Cardiac rehab on dc. f/u cards in 2-4 weeks of dc. Reactive leukocytosis: WBC elevated at 21,000 at presentation likely secondary to acute stress, flat trend at 21,000 following day, procalcitonin negative. Patient with no signs and symptoms of infection. Continue to monitor off antibiotic. Other chronic medical conditions: Continue with/resume home meds as and when able. Transaminitis, history abnormal LFTs from 2013 as per records, attributed to gallbladder disease as per remote records Hypothyroidism, euthyroid as of recent outpatient TSH Prediabetes, hemoglobin A1c of 5.8 from November 2023. A1c this admission 6.0. encourage lifestyle modification. repeat A1c in 3 months. DVT prophylaxis. Pt on eliquis Full code Text document was generated using [employer] voice recognition software. It may contain grammatical or spelling errors. Kindly contact undersigned for clarification of any documentation item in question. Admission and Anticipated Discharge Date Admission Date: February 22, 2024 Subjective Patient was seen and examined at bedside. Patient was lying in bed, on room air, NAD, resting comfortably. Patient reports no chest pain currently, reports eating okay and moving bowels okay. Patient denies headache or dizziness. Physical Exam Physical Exam: GENERAL: Comfortable, pleasant, no respiratory distress SKIN: Normal color, warm HEENT: [place] palpebral conjunctivae, no ptosis, moist buccal mucosa NECK : Supple, no tenderness CHEST : CTA, no tenderness HEART : RRR, no obvious murmurs ABDOMEN: Some distention, nontender EXTREMITIES : No LE swelling/tenderness, no other conspicuous deformities noted NEUROLOGIC : Coherent, no facial asymmetry, no other gross focality Results & Data Results & Data Vital Signs (Past 12 Hours) Vital Signs Temp Pulse Pulse Resp BP BP Pulse Ox 02/23/24 11:00 85/71 L 02/23/24 11:00 81 22 95 02/23/24 10:40 98/67 L 02/23/24 10:36 84/65 L 02/23/24 10:30 40 L 15 97 02/23/24 10:30 98/75 L 02/23/24 10:27 0 L 23 95 02/23/24 10:00 107/79 02/23/24 09:57 85 98 02/23/24 09:39 84 23 96 02/23/24 09:00 93/72 L 02/23/24 09:00 75 23 97 02/23/24 08:36 81 10 L 96 02/23/24 08:31 120/90 02/23/24 08:24 82 25 H 95 02/23/24 08:09 82 25 H 94 02/23/24 08:00 103/74 02/23/24 07:51 91 H 25 H 96 02/23/24 07:45 107/79 02/23/24 07:42 26 H 94 02/23/24 07:30 104/71 02/23/24 07:15 94/73 L 02/23/24 07:09 77 20 96 02/23/24 07:03 84 21 98 02/23/24 07:00 105/74 02/23/24 06:30 98/67 L 02/23/24 06:30 79 17 97 02/23/24 06:15 96/65 L 02/23/24 06:15 75 19 96 02/23/24 06:00 91/69 L 02/23/24 06:00 79 21 97 02/23/24 05:45 91/66 L 02/23/24 05:45 80 18 96 02/23/24 05:30 96/71 L 02/23/24 05:30 96/71 L 02/23/24 05:30 96/71 L 02/23/24 05:21 86 21 96 02/23/24 05:15 104/66 02/23/24 05:00 101/68 02/23/24 05:00 101/68 02/23/24 05:00 81 18 95 02/23/24 04:45 103/65 02/23/24 04:45 103/65 02/23/24 04:45 82 21 95 02/23/24 04:30 102/71 02/23/24 04:30 102/71 02/23/24 04:24 87 21 96 02/23/24 04:15 94/71 L 02/23/24 04:15 94/71 L 02/23/24 03:54 80 19 94 02/23/24 03:51 81 19 94 02/23/24 03:30 101/68 02/23/24 03:30 101/68 02/23/24 03:30 92 H 21 94 02/23/24 03:00 94/66 L 02/23/24 02:57 76 20 95 02/23/24 02:30 89/67 L 02/23/24 02:30 89/67 L 02/23/24 02:24 84 20 95 02/23/24 02:15 85 19 94 02/23/24 02:15 98/69 L 02/23/24 02:15 98/69 L 02/23/24 02:15 98/69 L 02/23/24 02:00 98/71 L 02/23/24 01:51 81 20 94 02/23/24 01:36 77 20 94 02/23/24 01:30 90/65 L 02/23/24 01:30 90/65 L 02/23/24 01:30 90/65 L 02/23/24 01:15 93/64 L 02/23/24 01:15 93/64 L 02/23/24 01:15 76 21 95 02/23/24 01:06 80 22 95 02/23/24 00:45 103/71 02/23/24 00:45 84 16 84 L 02/23/24 00:30 89/70 L 02/23/24 00:30 89/70 L 02/23/24 00:27 79 17 92 02/23/24 00:15 86/63 L 02/23/24 00:09 72 20 94 02/23/24 00:03 91 H 20 91 02/23/24 00:00 101/75 02/23/24 00:00 101/75 02/23/24 00:00 101/75 02/23/24 00:00 75 02/22/24 23:57 74 15 96 02/22/24 23:46 36.6 C 74 20 89/68 L 98 02/22/24 23:45 70 21 93 02/22/24 23:45 89/68 L 02/22/24 23:35 98/66 L 02/22/24 23:35 98/66 L O2 Del Method 02/23/24 11:00 02/23/24 11:00 02/23/24 10:40 02/23/24 10:36 02/23/24 10:30 02/23/24 10:30 02/23/24 10:27 02/23/24 10:00 02/23/24 09:57 02/23/24 09:39 02/23/24 09:00 02/23/24 09:00 02/23/24 08:36 02/23/24 08:31 02/23/24 08:24 02/23/24 08:09 02/23/24 08:00 02/23/24 07:51 02/23/24 07:45 02/23/24 07:42 02/23/24 07:30 02/23/24 07:15 02/23/24 07:09 02/23/24 07:03 02/23/24 07:00 02/23/24 06:30 02/23/24 06:30 02/23/24 06:15 02/23/24 06:15 02/23/24 06:00 02/23/24 06:00 02/23/24 05:45 02/23/24 05:45 02/23/24 05:30 02/23/24 05:30 02/23/24 05:30 02/23/24 05:21 02/23/24 05:15 02/23/24 05:00 02/23/24 05:00 02/23/24 05:00 02/23/24 04:45 02/23/24 04:45 02/23/24 04:45 02/23/24 04:30 02/23/24 04:30 02/23/24 04:24 02/23/24 04:15 02/23/24 04:15 02/23/24 03:54 02/23/24 03:51 02/23/24 03:30 02/23/24 03:30 02/23/24 03:30 02/23/24 03:00 02/23/24 02:57 02/23/24 02:30 02/23/24 02:30 02/23/24 02:24 02/23/24 02:15 02/23/24 02:15 02/23/24 02:15 02/23/24 02:15 02/23/24 02:00 02/23/24 01:51 02/23/24 01:36 02/23/24 01:30 02/23/24 01:30 02/23/24 01:30 02/23/24 01:15 02/23/24 01:15 02/23/24 01:15 02/23/24 01:06 02/23/24 00:45 02/23/24 00:45 02/23/24 00:30 02/23/24 00:30 02/23/24 00:27 02/23/24 00:15 02/23/24 00:09 02/23/24 00:03 02/23/24 00:00 02/23/24 00:00 02/23/24 00:00 02/23/24 00:00 02/22/24 23:57 02/22/24 23:46 Room Air 02/22/24 23:45 02/22/24 23:45 02/22/24 23:35 02/22/24 23:35 (1) ST elevation (STEMI) myocardial infarction Involved coronary artery: LAD coronary artery Qualified Code(s): I21.02 - ST elevation (STEMI) myocardial infarction involving left anterior descending coronary artery
[2024-02-23 12:12] LABS: BUN Creatinine Ratio 13.3 (10-20); Calcium 9.3 mg/dl (8.6-10.3); Creatinine Clr Calc Pharmacy 99.4 ml/min; Magnesium 2.2 mg/dl (1.7-2.4); Phosphorus 3.3 mg/dl (2.5-4.9); Potassium 4.1 mmol/L (3.5-5.1)
[2024-02-23 12:45] LABS: Troponin I High Sensitivity 70423.9 pg/ml (0-20)
[2024-02-23] MEDS: SODIUM CHLORIDE 0.9% 500 ML IV ONE (13:15)
[2024-02-23] MEDS: APIXABAN 5 MG TABLET PO SCH (21:12)
[2024-02-23 23:43] LABS: Basophils # (auto) 0.06 K/uL (0.00-0.20); Basophils % (auto) 0.4 %; Eosinophils % (auto) 0.7 %; Hematocrit (blood only) 39.7 % (42.0-52.0); Hemoglobin 13.5 g/dl (14.0-18.0); Immature Granulocytes # (auto) 0.06 K/uL (0.01-0.20); Immature Granulocytes % (auto) 0.4 %; Lymphocytes # (auto) 3.45 K/uL (1.20-3.40); Mean Corpuscular Hemoglobin 29.4 pg (25.0-34.0); Mean Corpuscular Volume 86.5 fL (80.0-100.0); Mean Platelet Volume 9.3 fL (9.4-12.4); Monocytes # (auto) 1.41 K/uL (0.11-0.59); Monocytes % (auto) 9.4 %; Neutrophils # (auto) 9.93 K/uL (1.40-6.50); Neutrophils % (auto) 66.1 %; Platelet Count 280 K/uL (130-400); RDW Standard Deviation 37.9 fL (36.4-46.3); Red Blood Count 4.59 M/uL (4.70-6.10); White Blood Count 15.01 K/ul (4.8-10.8)
[2024-02-24 04:56] LABS: BUN Creatinine Ratio 11.5 (10-20); Calcium 8.9 mg/dl (8.6-10.3); Creatinine Clr Calc Pharmacy 94.8 ml/min; Potassium 4.1 mmol/L (3.5-5.1)
--- NOTE | 2024-02-24 06:16 | Electrocardiogram Report ---
Test Reason : Blood Pressure : */* mmHG Vent. Rate : 106 BPM Atrial Rate : 106 BPM P-R Int : 138 ms QRS Dur : 88 ms QT Int : 342 ms P-R-T Axes : 61 -3 4 degrees QTcB Int : 454 ms Sinus tachycardia with Premature ventricular complexes Possible Left atrial enlargement Anteroseptal infarct , possibly acute Lateral injury pattern ACUTE [place] / STEMI Abnormal ECG No previous ECGs available Confirmed by Aurelio Staples ([id number]) on 02/24/2024 6:15:46 AM Referred By: REFERRED SELF Confirmed By: Aurelio Staples
--- NOTE | 2024-02-24 06:16 | Electrocardiogram Report ---
Test Reason : Blood Pressure : */* mmHG Vent. Rate : 104 BPM Atrial Rate : 104 BPM P-R Int : 146 ms QRS Dur : 92 ms QT Int : 342 ms P-R-T Axes : 54 -13 4 degrees QTcB Int : 449 ms Sinus tachycardia with frequent Premature ventricular complexes in a pattern of bigeminy Possible Left atrial enlargement Incomplete right bundle branch block Anteroseptal infarct (cited on or before 22-Feb-2024) ACUTE [place] / STEMI Abnormal ECG When compared with ECG of 22-Feb-2024 21:19, No significant change Confirmed by Aurelio Staples ([id number]) on 02/24/2024 6:16:17 AM Referred By: REFERRED SELF Confirmed By: Aurelio Staples
--- NOTE | 2024-02-24 06:17 | Electrocardiogram Report ---
Test Reason : Blood Pressure : */* mmHG Vent. Rate : 73 BPM Atrial Rate : 73 BPM P-R Int : 154 ms QRS Dur : 82 ms QT Int : 398 ms P-R-T Axes : 39 51 61 degrees QTcB Int : 438 ms Normal sinus rhythm Septal infarct (cited on or before 22-Feb-2024) Abnormal ECG When compared with ECG of 22-Feb-2024 21:32, Premature ventricular complexes are no longer Present ST less elevated in Anteroseptal leads ST no longer depressed in Inferior leads Confirmed by Aurelio Staples ([id number]) on 02/24/2024 6:17:29 AM Referred By: REFERRED SELF Confirmed By: Aurelio Staples
--- NOTE | 2024-02-24 06:18 | Electrocardiogram Report ---
Test Reason : Blood Pressure : */* mmHG Vent. Rate : 80 BPM Atrial Rate : 80 BPM P-R Int : 140 ms QRS Dur : 90 ms QT Int : 390 ms P-R-T Axes : 48 56 77 degrees QTcB Int : 449 ms Sinus rhythm with Premature ventricular complexes and Fusion complexes Low voltage QRS Nonspecific ST and T wave abnormality Abnormal ECG When compared with ECG of 22-Feb-2024 23:56, Fusion complexes are now Present Premature ventricular complexes are now Present Confirmed by Aurelio Staples ([id number]) on 02/24/2024 6:18:32 AM Referred By: REFERRED SELF Confirmed By: Aurelio Staples
--- NOTE | 2024-02-24 06:18 | Electrocardiogram Report ---
Test Reason : Blood Pressure : */* mmHG Vent. Rate : 77 BPM Atrial Rate : 77 BPM P-R Int : 150 ms QRS Dur : 78 ms QT Int : 384 ms P-R-T Axes : 58 63 66 degrees QTcB Int : 434 ms Normal sinus rhythm Low voltage QRS Borderline ECG When compared with ECG of 22-Feb-2024 23:10, Criteria for Septal infarct are no longer Present Confirmed by Aurelio Staples ([id number]) on 02/24/2024 6:17:51 AM Referred By: REFERRED SELF Confirmed By: Aurelio Staples
--- NOTE | 2024-02-24 06:19 | Electrocardiogram Report ---
Test Reason : Blood Pressure : */* mmHG Vent. Rate : 75 BPM Atrial Rate : 75 BPM P-R Int : 136 ms QRS Dur : 92 ms QT Int : 388 ms P-R-T Axes : 59 58 80 degrees QTcB Int : 433 ms Sinus rhythm with frequent Premature ventricular complexes Low voltage QRS Nonspecific ST and T wave abnormality Abnormal ECG When compared with ECG of 23-Feb-2024 10:33, Fusion complexes are no longer Present Confirmed by Aurelio Staples ([id number]) on 02/24/2024 6:19:10 AM Referred By: REFERRED SELF Confirmed By: Aurelio Staples
--- NOTE | 2024-02-24 06:20 | Electrocardiogram Report ---
Test Reason : Blood Pressure : */* mmHG Vent. Rate : 75 BPM Atrial Rate : 84 BPM P-R Int : * ms QRS Dur : 80 ms QT Int : 378 ms P-R-T Axes : 56 55 75 degrees QTcB Int : 422 ms Sinus rhythm with Idioventricular rhythm Low voltage QRS Nonspecific ST and T wave abnormality Abnormal ECG When compared with ECG of 23-Feb-2024 10:33, Intermittent idioventricular rhythm is now present Confirmed by Aurelio Staples ([id number]) on 02/24/2024 6:20:25 AM Referred By: REFERRED SELF Confirmed By: Aurelio Staples
--- OUTSIDE RECORDS SUMMARY | 2024-02-24 08:04 | External Medical Summary | Summary of Care ---
Author Name Unknown Organization [facility] Address [address] [place] [address] Phone [phone] Care Team Providers Care Eyeletter Name Role Phone Aaliyah Killian MD Primary Care Provider + Reason for Visit * Reason Onset Date Comments Medication Refill 11/15/2023 Encounter Details Date Type Department Care Team (Late st Contact Info) Description 11/15/2023 Refill General Internal Medicine [facility] [address] [place] [address] Aaliyah Killian MD [address] [place] [address] Hyperlipidemia with target LDL less than 100 Allergies No known active allergiesdocumented as of this encounter (statuses as of 11/17/2023) Medications Medication Sig Dispensed Refills Start Date End Date Status MULTI-VITAMIN PO TABS 1 tab by mouth daily Active fluticasone (FLONASE) 50 MCG/ACT nasal sprayIndications:Oth er acute sinusitis,Allergic rhinitis Administer 2 Sprays into each nostril daily. 1 Bottle 5 07/16/2014 Active Esomeprazole Magnesium 20 MG Oral Packet Take 20 mg by mouth daily before breakfast. Active Levothyroxine Sodium 100 MCG Oral Tablet (Levoxyl)Indications :Acquired hypothyroidism Take 1 Tablet by mouth daily first thing in the morning. (at least 30 min prior to breakfast or other meds) 30 Tablet 10/05/2023 Active Rosuvastatin Calcium 5 MG Oral Tablet (Crestor)Indications :Hyperlipidemia with target LDL less than 100 Take 1 Tablet by mouth in the morning. 30 Tablet 5 11/17/2023 Active Rosuvastatin Calcium 5 MG Oral Tablet (Crestor)Indications :Hyperlipidemia with target LDL less than 100 Take 1 Tablet by mouth in the morning. 30 Tablet 5 07/03/2023 4 Discontinue d(Refill) documented as of this encounter (statuses as of 11/17/2023) Active Problems Problem Noted Date Diagnosed Date Prediabetes 12/22/2019 Overview: Per Prediabetes protocol Hypothyroidism 04/24/2012 RECURRENT ACUTE SINUSITIS 06/01/2010 Allergic rhinitis 06/01/2010 Wheezing 06/01/2010 documented as of this encounter (statuses as of 11/17/2023) Immunizations Name Administration Dates Next Due COVID-19 mRNA, LNP-s, No Pre serve, 2-Dose Series (RSB SPINE) 01/19/2021,07/01/2020,06/10/2020 Hepatitis B, 20+ yrs 10/17/2023,05/21/2023,04/17 Seasonal Influenza Virus Vac cine, Unspecified Formulation 01/01/2022,12/25/2020,12/07/2019,2018,12/15/2017,12/10/2016,12/17/2015,1 ,11/25/2011,12/20/2009, 009 Seasonal Influenza, PF, 6 M & above, IM , (FluLaval or Fluzone) 12/25/2020,12/15/2017,12/10/2016 Seasonal Influenza, QUAD, wi th Preserv, 6 mons & Above, 0.5 mL, IM 02/01/2019 Seasonal Influenza, Quadriva lent, No Preserve, IM 12/17/2015 Seasonal Influenza, Quadriva lent, No Preserve, Mdck 12/07/2019 Seasonal Influenza, Trivalen t, (IIV3), with Preserv, (Fluzone) 12/22/2014,12/10/2013,12/28/2012,2011,12/20/2009,12/16/2008 Seasonal Influenza, Trivalen t, Adjuvanted, 65+ YRS, PF, (Fluad) 12/07/2019 TD, Preservative Free 08/15/2012 TDAP (age 10 and older)(Boostrix) 04/17/2023 TDAP, Age 7 and older, IM (Adacel) 08/10/2002 Zoster Vaccine Recombinant (Shingrix) 02/09/2020 ,11/25/2019 documented as of this encounter Social History Tobacco Use Types Packs/Day Years Used Date Smoking Tobacco: Never Smokeless Tobacco: Never Comments:no passive smoke ex posures Alcohol Use Standard Drinks/Week Comments Yes 0 (1 standard drink = 0.6 oz pur e alcohol) rarely PHQ-2 Answer Date Recorded PHQ Adult Total Score 0 03/01/2022 Hunger Vital Sign Answer Date Recorded Within the past 12 months, y ou worried that your food would run out before you got the money to buy more. Never true 03/01/20 22 Within the past 12 months, t he food you bought just didn't last and you didn't have money to get more. Never true 03/01/2022 Utilities Answer Date Recorded Do you have trouble paying y our heating, water, or electric bill? (Adult - for ages 18 years and over) Not on file 08/28/2023 Is your family able to pay t he heat, water, or electric bill? (Household - for ages 0-17 years) Not on file 08/28/2023 Does your family have access to good internet? (Household - for ages 0-17 years) Not on file 08/28/2023 Social Connections Answer Date Recorded How often do you feel lonely or isolated from those around you? (Adult - for ages 18 years and over) Not on file 08/28/2023 Sex and Gender Information Value Date Recorded Sex Assigned at Male 12/10/2019 7:41 AM EDT Gender Identity Male 12/10/2019 7:41 AM EDT Sexual Orientation Straight 12/10/2019 7: 41 AM EDT Job Start Date Occupation Industry Not on file Not on file Not on file documented as of this encounter Miscellaneous Notes * Telephone Encounter - Darshana Hager [facility] - 11/17/2023 2:52 PM EDTSigned Prescriptions: Disp Refills Rosuvastatin Calcium 5 MG Oral Tablet (Cre*30 Tab*5 Sig: Take 1 Tablet by mouth in the morning.Authorizing Provider: AALIYAH KILLIAN User: DARSHANA HAGER documented in this encounter Plan of Treatment Upcoming Encounters Date Type Department Care Team (Late st Contact Info) Description 04/17/2024 8:00 AM EST Office Visit General Internal Medicine [facility] [place] [address] [place] [address] Aaliyah Killian MD [address] [facility] [place], [place] [address] Health Maintenance Due Date Last Done Comments HIV Screening 08/11/1982 Cologuard 08/11/2012 Fecal Occult Blood Test 08/11/2012 Sigmoidoscopy 08/11/2012 Depression Screening 03/01/2023 03/01/2022 COVID-19 Vaccine ( season) 2023 01/19/2021, 07/01/2020, 06/10/2020 Influenza Vaccine (FLU shot) (#1) 2023 01/01/2022, 12/25/2020, 12/25/2020, Additional history exists HbA1c 11/12/2024 11/13/2023, 02/0 08/2023, 03/01/2022, Additional history exists TSH 11/12/2024 11/13/2023, 02/0 08/2023, 03/01/2022, Additional history exists Lipid Panel 11/12/2028 11/13/2023, 02/0 08/2023, 03/01/2022, Additional history exists Colonoscopy 11/30/2031 11/29/2021 Colorectal Cancer Screening 11/30/2031 DTap/Tdap Vaccines (4 - Td or Tdap) 04/17/2033 04/17/2023, 08/15/2012, 08/10/2002 Zoster Vaccines Completed 02/09/2020, 11/25/2019 Hepatitis C Screening Completed 08/20/2023, 011 Hepatitis B Vaccine Completed 10/17/2023, 05/21/2023, 04/17/2023 HPV (Gardasil) Vaccine Aged Out No lo nger eligible based on patient's age to complete this topic MENINGOCOCCAL (MENACTRA/MENVEO) Aged Out No longer eligible based on patient's age to complete this topic Pneumococcal Vaccine: Pediatrics (0 to 5 Years) and At-Risk Patients (6 to 64 Years) Aged Out No longer eligible based on patient's age to complete this topic documented as of this encounter Medical Devices Not on filedocumented as of this encounter Visit Diagnoses Diagnosis Hyperlipidemia with target LDL less than 100 Other and unspecified hyperlipidemia documented in this encounter Care Teams Eyeletter Relationship Specialty Start Date End Date Aaliyah Killian MD [address] [place] [address] PCP - General 12/25/08 documented as of this encounter
--- OUTSIDE RECORDS SUMMARY | 2024-02-24 08:04 | External Medical Summary | Summary of Care ---
Author Name Unknown Organization [facility] Address [address] [place] [address] Phone [phone] Care Team Providers Care Medical Affairs Leader Name Role Phone Aaliyah Killian MD Primary Care Provider + Reason for Visit * Reason Onset Date Comments Medication Refill 02/12/2024 Encounter Details Date Type Department Care Team (Late st Contact Info) Description 02/12/2024 Refill General Internal Medicine [facility] [address] [place] [address] Aaliyah Killian MD [address] [place] [address] Acquired hypothyroidism Allergies No known active allergiesdocumented as of this encounter (statuses as of 02/13/2024) Medications MULTI-VITAMIN PO TABS 1 tab by mouth daily Active fluticasone (FLONASE) 50 MCG/ACT nasal sprayIndications:O ther acute sinusitis,Allergic rhinitis Administer 2 Sprays into each nostril daily. 1 Bottle 5 07/17/19 15 Active Esomeprazole Magnesium 20 MG Oral Packet Take 20 mg by mouth daily before breakfast. Active Rosuvastatin Calcium 5 MG Oral Tablet (Crestor)Indicatio ns:Hyperlipidemia with target LDL less than 100 Take 1 Tablet by mouth in the morning. 30 Tablet 5 11/17/19 24 Active Typhoid Vaccine Oral Capsule Delayed ReleaseIndications :Travel advice encounter Take 1 Capsule by mouth every other day. 4 Capsule 01/24/20 24 Active Mefloquine HCl 250 MG Oral TabletIndications: Travel advice encounter Take once pill once a weekly and start one week before the departure date and continue until 3 weeks after coming back to [facility] 6 Tablet 01/31/20 24 Active Levothyroxine Sodium 100 MCG Oral Tablet (Levoxyl)Indicatio ns:Acquired hypothyroidism Take 1 Tablet by mouth daily first thing in the morning. (at least 30 min prior to breakfast or other meds) 30 Tablet 02/13/20 24 Active Levothyroxine Sodium 100 MCG Oral Tablet (Levoxyl)Indicatio ns:Acquired hypothyroidism Take 1 Tablet by mouth daily first thing in the morning. (at least 30 min prior to breakfast or other meds) 30 Tablet 01/03/20 24 024 Discontin ued(Refil l) documented as of this encounter (statuses as of 02/13/2024) Active Problems Problem Noted Date Diagnosed Date Prediabetes 12/22/2019 Overview: Per Prediabetes protocol Hypothyroidism 04/24/2012 RECURRENT ACUTE SINUSITIS 06/01/2010 Allergic rhinitis 06/01/2010 Wheezing 06/01/2010 documented as of this encounter (statuses as of 02/13/2024) Immunizations Name Administration Dates Next Due COVID-19 mRNA, LNP-s, No Pre serve, 2-Dose Series ([employer]) 01/19/2021,07/01/2020,06/10/2020 HEP A - Hepatitis A (Adult > 18 yrs) 01/28/2024 Hepatitis B, 20+ yrs 10/17/2023,05/21/2023,04/17 Seasonal Influenza Vac., MDV , IM, 0.5 mL (Fluzone) 12/22/2014,12/10/2013,12/28/2012,2011,12/20/2009,12/16/2008 Seasonal Influenza Virus Vac cine, Unspecified Formulation 01/01/2022,12/25/2020,12/07/2019,2018,12/15/2017,12/10/2016,12/17/2015,1 ,11/25/2011,12/20/2009, 009 Seasonal Influenza, PF, 6 M & above, IM , (FluLaval or Fluzone) 12/25/2020,12/15/2017,12/10/2016 Seasonal Influenza, QUAD, wi th Preserv, 6 mons & Above, 0.5 mL, IM 02/01/2019 Seasonal Influenza, Quadriva lent, No Preserve, IM 12/17/2015 Seasonal Influenza, Quadriva lent, No Preserve, Mdck 12/07/2019 Seasonal Influenza, Trivalen t, (IIV3), PF, (Fluzone) 12/22/2023 Seasonal Influenza, Trivalen t, Adjuvanted, 65+ YRS, [...] Assigned at Male 12/10/2019 7:41 AM EDT Legal Sex Male 6:43 AM EST Gender Identity Male 12/10/2019 7:41 AM EDT Sexual Orientation Straight 12/10/2019 7: 41 AM EDT 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 (at least 30 min prior to breakfast or other meds) Authorizing Provider: AALIYAH KILLIAN * Telephone Encounter - Chloé Lee CMA - 02/13/2024 8:35 AM ESTPending Prescriptions: Disp Refills Levothyroxine Sodium 100 MCG Oral Tablet (*30 Tab*0 Sig: Take 1 Tablet by mouth daily first thing in the morning. (at least 30 min prior to breakfast or other meds) * Telephone Encounter - Chloé Lee CMA - 02/13/2024 8:34 AM EST Pending Prescriptions: Disp Refills Levothyroxine Sodium 100 MCG Oral Tablet *30 Tab*0 Sig: Take 1 Tablet by mouth daily first thing in the morning. (at least 30 min prior to breakfast or other meds) Last Visit: 04/17/2023 (in office), Visit date not found (telemedicine) Next Visit: 04/17/2024 Last date the medication was ordered: 01/03/24 Patient Active Problem List Diagnosis RECURRENT ACUTE SINUSITIS Allergic rhinitis Wheezing Hypothyroidism Prediabetes Labs: Lab Results Component Value Date/Time CREATININE - [facility] 0.9 11/13/2023 11:46 AM CREATININE - [facility] 0.88 08/20/2023 12:31 PM CREATININE - [facility] 1.1 12/10/2019 08:14 AM Lab Results Component Value Date/Time POTASSIUM - [facility] 4.5 11/13/2023 11:46 AM POTASSIUM - [facility] 4.4 08/20/2023 12:31 PM POTASSIUM - [facility] 4.3 12/10/2019 08:14 AM Lab Results Component Value Date/Time TSH - [facility] 1.35 11/13/2023 11:46 AM TSH - [facility] 4.27 (H) 12/10/2019 08:14 AM Lab Results Component Value Date/Time LDL CHOLESTEROL (CALCULATED) - [facility] 86 11/13/2023 11:46 AM LDL CHOLESTEROL (CALCULATED) - [facility] 154 (H) 04/17/2023 09:12 AM LDL CHOLESTEROL (CALCULATED) - [facility] 149 (H) 12/10/2019 08:14 AM LDL CHOLESTEROL (CALCULATED) - [facility] 158 (H) 05/27/2015 08:57 AM LDL CHOLESTEROL (DIRECT MEASURE) - [facility] NOT APPLICABLE 12/10/2019 08:14 AM LDL CHOLESTEROL (DIRECT MEASURE) - [facility] NOT APPLICABLE 05/27/2015 08:57 AM LDL CHOLESTEROL (DIRECT MEASURE) - [facility] 169 (H) 07/16/2014 09:25 AM Lab Results Component Value Date/Time ALT - [facility] 77 (H) 11/13/2023 11:46 AM ALT - [facility] 73 (H) 12/10/2019 08:14 AM ALT-OUTSIDE LAB 109 (A) 09/14/2016 12:00 AM Hemoglobin AIC Results: Lab Results Component Value Date/Time HEMOGLOBIN A1C - [facility] 5.8 (H) 11/13/2023 11:46 AM HEMOGLOBIN A1C - [facility] 6.0 (H) 04/17/2023 09:12 AM HEMOGLOBIN A1C - [facility] 5.9 (H) 03/01/2022 09:25 AM HEMOGLOBIN A1C - [facility] 6.1 (H) 12/10/2019 08:14 AM HEMOGLOBIN A1C - [facility] 5.4 07/16/2014 09:25 AM HEMOGLOBIN A1C - [facility] 5.6 02/27/2012 09:16 AM * Telephone Encounter - Natali Corley OSA - 02/12/2024 7:09 AM EST Did you pend patient's preferred pharmacy and medication before forwarding?yes Pharmacy: [id number] [id number] [address] Pending Prescriptions: Disp Refills Levothyroxine Sodium 100 MCG Oral Tablet *30 Tab*0 Sig: Take 1 Tablet by mouth daily first thing in the morning. (at least 30 min prior to breakfast or other meds) Last Visit: 04/17/2023 (in office), Visit date not found (telemedicine) Next Visit: 04/17/2024 If no future appointments scheduled, and last appointment is greater than a year ago, please schedule patient for a follow-up appointment Last date the medication was ordered: [id number] Is this request for a controlled substance?No Urine Drug Screen:No results found for this or any previous visit. Patient Phone Numbers Total [facility] [phone] Labs: Lab Results Component Value Date/Time CREAT 0.9 11/13/2023 11:46 AM CREAT 0.88 08/20/2023 12:31 PM CREAT 1.1 12/10/2019 08:14 AM POTASSIUM 4.5 11/13/2023 11:46 AM POTASSIUM 4.4 08/20/2023 12:31 PM POTASSIUM 4.3 12/10/2019 08:14 AM TSH 1.35 11/13/2023 11:46 AM TSH 4.27 (H) 12/10/2019 08:14 AM LDL 86 11/13/2023 11:46 AM LDL 149 (H) 12/10/2019 08:14 AM LDL NOT APPLICABLE 12/10/2019 08:14 AM ALT 77 (H) 11/13/2023 11:46 AM ALT 73 (H) 12/10/2019 08:14 AM HGBA1C 5.8 (H) 11/13/2023 11:46 AM HGBA1C 6.1 (H) 12/10/2019 08:14 AM documented in this encounter Plan of Treatment Upcoming Encounters Date Type Department Care Team (Late st Contact Info) Description 04/17/2024 8:00 AM EST Office Visit General Internal Medicine [facility] [place] [address] [place] [address] Aaliyah Killian MD [address] [place] [address] Health Maintenance Due Date Last Done Comments HIV Screening 08/11/1982 Cologuard 08/11/2012 Fecal Occult Blood Test 08/11/2012 Sigmoidoscopy 08/11/2012 Depression Screening 03/01/2023 03/01/2022 COVID-19 Vaccine ( season) 2023 01/19/2021, 07/01/2020, 06/10/2020 HbA1c 11/12/2024 11/13/2023, 020 08/2023, 03/01/2022, Additional history exists TSH 11/12/2024 11/13/2023, 02/0 08/2023, 03/01/2022, Additional history exists Lipid Panel 11/12/2028 11/13/2023, 02/0 08/2023, 03/01/2022, Additional history exists Colonoscopy 11/30/2031 11/29/2021 Colorectal Cancer Screening 11/30/2031 DTap/Tdap Vaccines (4 - Td or Tdap) 04/17/2033 04/17/2023, 08/15/2012, 08/10/2002 Zoster Vaccines Completed 02/09/2020, 11/25/2019 Hepatitis C Screening Completed 08/20/2023, 011 Hepatitis B Vaccine Completed 10/17/2023, 05/21/2023, 04/17/2023 Influenza Vaccine (FLU shot) Completed 02/2024, 01/01/2022, 12/25/2020, Additional history exists HPV (Gardasil) Vaccine Aged Out No lo [...] as of this encounter Visit Diagnoses Diagnosis Acquired hypothyroidism Unspecified hypothyroidism documented in this encounter Care Teams Medical Affairs Leader Relationship Specialty Start Date End Date Aaliyah Killian MD [address] [place] [id number] PCP - General 12/25/08 documented as of this encounter
--- OUTSIDE RECORDS SUMMARY | 2024-02-24 08:04 | External Medical Summary ---
Author Name Unknown Address Unknown Organization [id number]:[facility] - [address] [place], [place] [address] Laboratory Report Ordering Provider Test Date Status YA,ERNIE 11/13/2023 11:46:43 Final Observation Date Value Abnormality Reference (Units ) Status TSH 11/13/2023 11:46:43 1.35 0.27-4.20 (uIU/mL) Final Performing Location [facility] - [address] [place], [place] [address]
--- OUTSIDE RECORDS SUMMARY | 2024-02-24 08:04 | External Medical Summary | Summary of Care ---
Author Name Unknown Organization [facility] Address [address] [place] [address] Phone [phone] Care Team Providers Care Product Specialist Name Role Phone Marlena Killian MD Primary Care Provider + Encounter Details Date Type Department Care Team (Late st Contact Info) Description 01/28/2024 8:00 AM EST [facility] [address] [place] [address] Nurse, Int Med [address] [facility] [place] [address] Arrived Allergies No known active allergiesdocumented as of this encounter (statuses as of 01/28/2024) Medications MULTI-VITAMIN PO TABS 1 tab by mouth daily Active fluticasone (FLONASE) 50 MCG/ACT nasal sprayIndications:O ther acute sinusitis,Allergic rhinitis Administer 2 Sprays into each nostril daily. 1 Bottle 5 5 Active Esomeprazole Magnesium 20 MG Oral Packet Take 20 mg by mouth daily before breakfast. Active Rosuvastatin Calcium 5 MG Oral Tablet (Crestor)Indicatio ns:Hyperlipidemia with target LDL less than 100 Take 1 Tablet by mouth in the morning. 30 Tablet 5 4 Active Levothyroxine Sodium 100 MCG Oral Tablet (Levoxyl)Indicatio ns:Acquired hypothyroidism Take 1 Tablet by mouth daily first thing in the morning. (at least 30 min prior to breakfast or other meds) 30 Tablet 4 Active Typhoid Vaccine Oral Capsule Delayed ReleaseIndications :Travel advice encounter Take 1 Capsule by mouth every other day. 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 No Patient allergic to latex? No Has the patient ever fainted after receiving an injection? No VFC Stock: No Immunization(s) verified: Yes, Immunization Name: Hep A, VIS Sheet(s) given: Yes Verified Side and Site: Yes Verified Shot(s) with Parent(s)/Patient: Yes documented in this encounter Plan of Treatment Upcoming Encounters Date Type Department Care Team (Late st Contact Info) Description 04/17/2024 8:00 AM EST Office Visit General Internal Medicine [facility] [place] [address] [place] [address] Marlena Killian MD [address] [facility] [place] [address] Health Maintenance Due Date Last Done Comments HIV Screening 08/11/1982 Cologuard 08/11/2012 Fecal Occult Blood Test 08/11/2012 Sigmoidoscopy 08/11/2012 Depression Screening 03/01/2023 03/01/2022 COVID-19 Vaccine ( season) 2023 01/19/2021, 07/01/2020, 06/10/2020 HbA1c 11/12/2024 11/13/2023, 02/0 08/2023, 03/01/2022, Additional [...] as of this encounter Visit Diagnoses Diagnosis Need for hepatitis A vaccination- Primary Need for prophylactic vaccination and inoculation against viral hepatitis documented in this encounter Care Teams Product Specialist Relationship Specialty Start Date End Date Marlena Killian MD [address] [facility] [place] [address] PCP - General 12/25/08 documented as of this encounter
--- OUTSIDE RECORDS SUMMARY | 2024-02-24 08:04 | External Medical Summary | Summary of Care ---
Author Name Unknown Organization [facility] Address [address] [place] [address] Phone [phone] Care Team Providers Care Repair Servicer Name Role Phone Aaliyah Killian MD Primary Care Provider + Reason for Visit * Reason Onset Date Comments Medication Refill 01/03/2024 Encounter Details Date Type Department Care Team (Late st Contact Info) Description 01/03/2024 Refill General Internal Medicine [facility] [address] [place] [address] Aaliyah Killian MD [address] [place] [address] Acquired hypothyroidism Allergies No known active allergiesdocumented as of this encounter (statuses as of 01/03/2024) Medications Medication Sig Dispensed Refills Start Date [...] the morning. 30 Tablet 5 11/17/2023 Active Levothyroxine Sodium 100 MCG Oral Tablet (Levoxyl)Indications :Acquired hypothyroidism Take 1 Tablet by mouth daily first thing in the morning. (at least 30 min prior to breakfast or other meds) 30 Tablet 01/03/2024 Active Levothyroxine Sodium 100 MCG Oral Tablet (Levoxyl)Indications :Acquired hypothyroidism Take 1 Tablet by mouth daily first thing in the morning. (at least 30 min prior to breakfast or other meds) 30 Tablet 12/06/2023 4 Discontinue d(Refill) documented as of this encounter (statuses as of 01/03/2024) Active Problems Problem Noted Date Diagnosed Date Prediabetes 12/22/2019 Overview: Per Prediabetes protocol Hypothyroidism 04/24/2012 RECURRENT ACUTE SINUSITIS 06/01/2010 Allergic rhinitis 06/01/2010 Wheezing 06/01/2010 documented as of this encounter (statuses as of 01/03/2024) Immunizations Name Administration Dates Next Due COVID-19 mRNA, LNP-s, No Pre serve, 2-Dose Series (frenting) 01/19/2021,07/01/2020,06/10/2020 Hepatitis B, 20+ yrs 10/17/2023,05/21/2023,04/17 Seasonal [...] Telephone Encounter - Aaliyah Killian MD - 01/03/2024 1:33 PM EDTSigned Prescriptions: Disp Refills Levothyroxine Sodium 100 MCG Oral Tablet (*30 Tab*0 Sig: Take 1 Tablet by mouth daily first thing in the morning. (at least 30 min prior to breakfast or other meds) Authorizing Provider: AALIYAH KILLIAN * Telephone Encounter - Alok Newton CMA - 01/03/2024 1:32 PM EDTPending Prescriptions: Disp Refills Levothyroxine Sodium 100 MCG Oral Tablet (*30 Tab*0 Sig: Take 1 Tablet by mouth daily first thing in the morning. (at least 30 min prior to breakfast or other meds) * Telephone Encounter - Danni Bueno OSA - 01/03/2024 11:02 AM EDT Did you pend patient's preferred pharmacy and medication before forwarding?yes Pharmacy: [facility] [id number] [place] Pending Prescriptions: Disp Refills Levothyroxine Sodium [...] appointment Last date the medication was ordered: 12/06/2023 Is this request for a controlled substance?No Urine Drug Screen:No results found for this or any previous visit. Patient Phone Numbers Labs: Lab Results Component Value Date/Time CREAT [...] AM EST Office Visit General Internal Medicine [facility] [address] [facility] [place] [address] Aaliyah Killian MD 200 [facility] [place] [address] Health Maintenance Due Date Last Done Comments HIV Screening 08/11/1982 Cologuard 08/11/2012 Fecal Occult Blood Test 08/11/2012 Sigmoidoscopy 08/11/2012 Depression Screening 03/01/2023 03/01/2022 COVID-19 Vaccine ( season) 2023 01/19/2021, 07/01/2020, 06/10/2020 HbA1c 11/12/2024 11/13/2023, 02/0 08/2023, 03/01/2022, Additional history exists TSH 11/12/2024 11/13/2023, 0 08/2023, 03/01/2022, Additional history exists Lipid Panel 11/12/2028 11/13/2023, 020 08/2023, 03/01/2022, Additional history exists Colonoscopy 11/30/2031 [...] hypothyroidism documented in this encounter Care Teams Repair Servicer Relationship Specialty Start Date End Date Aaliyah Killian MD [address] [place] [address] PCP - General 12/25/08 documented as of this encounter
--- OUTSIDE RECORDS SUMMARY | 2024-02-24 08:04 | External Medical Summary | Summary of Care ---
Author Name Unknown Organization [facility] Address [address] [place] [address] Phone [phone] Care Team Providers Care Mammographer Name Role Phone Marlena Killian MD Primary Care Provider + Encounter Details Date Type Department Care Team (Late st Contact Info) Description 12/22/2023 10:35 AM EDT Immunization Ancillary [facility] [place] [address] [place] [address] [facility] [address] [place] [address] Arrived Allergies No known active allergiesdocumented as of this encounter (statuses as of 12/22/2023) Medications Medication Sig Dispensed Refills Start Date End Date Status MULTI-VITAMIN PO TABS 1 tab by mouth daily Active fluticasone (FLONASE) 50 MCG/ACT nasal sprayIndications:Othe r acute sinusitis,Allergic rhinitis Administer 2 Sprays into each nostril daily. 1 Bottle 5 07/16/2014 Active Esomeprazole Magnesium 20 MG Oral Packet Take 20 mg by mouth daily before breakfast. Active Rosuvastatin Calcium 5 MG Oral Tablet (Crestor)Indications: Hyperlipidemia with target LDL less than 100 Take 1 Tablet by mouth in the morning. 30 Tablet 5 11/17/2023 Active Levothyroxine Sodium 100 MCG Oral Tablet (Levoxyl)Indications: Acquired hypothyroidism Take 1 Tablet by mouth daily first thing in the morning. (at least 30 min prior to breakfast or other meds) 30 Tablet 12/06/2023 Active documented as of this encounter (statuses as of 12/22/2023) Active Problems Problem Noted Date Diagnosed Date Prediabetes 12/22/2019 Overview: Per Prediabetes protocol Hypothyroidism 04/24/2012 RECURRENT ACUTE SINUSITIS 06/01/2010 Allergic rhinitis 06/01/2010 Wheezing 06/01/2010 documented as of this encounter (statuses as of 12/22/2023) Immunizations Name Administration Dates Next Due COVID-19 mRNA, LNP-s, No Pre serve, 2-Dose Series ([employer]) 01/19/2021,07/01/2020,06/10/2020 Hepatitis B, 20+ yrs 10/17/2023,05/21/2023,04/17 Seasonal [...] on file documented as of this encounter Plan of Treatment Upcoming Encounters Date Type Department Care Team (Late st Contact Info) Description 04/17/2024 8:00 AM EST Office Visit General Internal Medicine [facility] [address] [place] [address] Marlena Killian MD [address] [facility] [place] [address] Health Maintenance Due Date Last Done Comments HIV Screening 08/11/1982 Cologuard 08/11/2012 Fecal Occult Blood Test 08/11/2012 Sigmoidoscopy 08/11/2012 Depression Screening 03/01/2023 03/01/2022 COVID-19 Vaccine ( season) 2023 01/19/2021, 07/01/2020, 06/10/2020 Influenza Vaccine (FLU shot) (#1) 2023 12/22/2023, 01/01/2022, 12/25/2020, Additional history exists HbA1c 11/12/2024 11/13/2023, [...] Not on filedocumented as of this encounter Care Teams Mammographer Relationship Specialty Start Date End Date Marlena Killian MD [address] [place] [address] PCP - General 12/25/08 documented as of this encounter
--- OUTSIDE RECORDS SUMMARY | 2024-02-24 08:04 | External Medical Summary | Summary of Care ---
Author Name Unknown Organization [facility] Address [address] [place] [address] Phone [phone] Care Team Providers Care Router Tender Name Role Phone Malrena Killian MD Primary Care Provider + Reason for Visit * Reason Comments Outpatient Testing Encounter Details Date Type Department Care Team (Late st Contact Info) Description 11/13/2023 11:50 AM EDT Laboratory Laboratory [facility] [place] [address] [place] [phone] [facility] [address] [facility] [place] [address] Elevated LFTs; Prediabetes; Abnormal blood cell count; Acquired hypothyroidism Allergies No known active allergiesdocumented as of this encounter (statuses as of 11/13/2023) Medications Medication Sig Dispensed Refills Start Date [...] in the morning. 30 Tablet 5 07/03/2023 Active Levothyroxine Sodium 100 MCG Oral Tablet (Levoxyl)Indications: Acquired hypothyroidism Take 1 Tablet by mouth daily first thing in the morning. (at least 30 min prior to breakfast or other meds) 30 Tablet 10/05/2023 Active documented as of this encounter (statuses as of 11/13/2023) Active Problems Problem Noted Date Diagnosed Date Prediabetes 12/22/2019 Overview: Per Prediabetes protocol Hypothyroidism 04/24/2012 RECURRENT ACUTE SINUSITIS 06/01/2010 Allergic rhinitis 06/01/2010 Wheezing 06/01/2010 documented as of this encounter (statuses as of 11/13/2023) Immunizations Name Administration Dates Next Due COVID-19 mRNA, LNP-s, No Pre serve, 2-Dose Series ([employer]) 01/19/2021,07/01/2020,06/10/2020 Hepatitis B, 20+ yrs 10/17/2023,05/21/2023,04/17 Seasonal [...] General Internal Medicine [facility] [address] [place] [address] Marlena Killian MD [address] [place] [address] Pending Results Name Type Priority Associated Diagnoses Date /Time HEMOGLOBIN A1C Lab Routine Prediabetes 11/13/2023 11:46 AM EDT LIPID PANEL WITH DIRECT LDL IF TG IS HIGH Lab Routine Elevated LFTs 11/13/2023 11:46 AM EDT COMPREHENSIVE METABOLIC PANEL Lab Routine Elevated LFTs 11/13/2023 11:46 AM EDT LIPASE Lab Routine Elevated LFTs 11/13/2023 11:46 AM EDT GGTP Lab Routine Elevated LFTs 11/13/2023 11:46 AM EDT TSH WITH FREE T4 IF INDICATED Lab Routine Acquired hypothyroidism 11/13/2023 11:46 AM EDT BILIRUBIN, DIRECT Lab Routine Elevated LFTs 11/13/2023 11:46 AM EDT Health Maintenance Due Date Last Done Comments HIV Screening 08/11/1982 Cologuard 08/11/2012 Fecal Occult Blood Test 08/11/2012 Sigmoidoscopy 08/11/2012 Depression Screening 03/01/2023 03/01/2022 COVID-19 Vaccine ( season) 2023 01/19/2021, 07/01/2020, 06/10/2020 Influenza Vaccine (FLU shot) (#1) 2023 01/01/2022, 12/25/2020, 12/25/2020, Additional history exists HbA1c 04/17/2024 04/17/2023, 02/10, 03/03/2021, Additional history exists TSH 04/17/2024 04/17/2023, 02/10, 03/03/2021, Additional history exists Lipid Panel 04/17/2028 04/17/2023, 02/10, 03/03/2021, Additional history exists Colonoscopy 11/30/2031 11/29/2021 Colorectal [...] Not on filedocumented as of this encounter Procedures Procedure Name Priority Date/Time Associated Diagnosis Comments DIFFERENTIAL, AUTOMATED Routine 11/13/2023 11:46 AM EDT Abnormal blood cell count CBC Routine 11/13/2023 11:46 AM EDT Abnormal blood cell count CBC Routine 11/13/2023 11:46 AM EDT Abnormal blood cell count documented in this encounter Results * DIFFERENTIAL, AUTOMATED (11/13/2023 11:46 AM EDT) WBC 8.34 4.00 - 10.80 K/uL 11/13/2023 11:55 AM EDT [facility] 56-02 Neutrophils % 56.0 40.0 - 75.0 % 11/13/2023 11:55 AM EDT [facility] 56-02 Lymphocytes % 33.5 18.0 - 42.0 % 11/13/2023 11:55 AM EDT [facility] 56-02 Monocytes % 8.4 1.0 - 11.0 % 11/13/2023 11:55 AM EDT [facility] 56-02 Eosinophils % 1.9 0.0 - 6.0 % 11/13/2023 11:55 AM EDT [facility] 56-02 Basophils % 0.2 0.0 - 2.0 % 11/13/2023 11:55 AM EDT [facility] 56-02 Absolute Neutrophils 4.67 1.80 - 7.70 K/uL 11/13/2023 11:55 AM EDT [facility] 56-02 Absolute Lymphocytes 2.79 1.00 - 4.80 K/ul 11/13/2023 11:55 AM EDT [facility] 56-02 Absolute Monocytes 0.70 0.00 - 1.10 K/uL 11/13/2023 11:55 AM EDT [facility] 56-02 Absolute Eosinophils 0.16 0.00 - 0.70 K/uL 11/13/2023 11:55 AM EDT [facility] 56- Absolute Basophils 0.02 0.00 - 0.20 K/uL 11/13/2023 11:55 AM EDT [facility] 56 Blood Venous blood specimen / Unknown Venipuncture / Unknown 11/13/2023 11:46 AM EDT 11/13/2023 11:47 AM EDT Marlena Killian MD LAB BLOOD [facility] 56 [address] [place] [address] * CBC (11/13/2023 11:46 AM EDT) WBC 8.34 4.00 - 10.80 K/uL 11/13/2023 11:55 AM EDT [facility] 56 RBC 5.06 4.50 - 5.25 M/uL 11/13/2023 11:55 AM EDT [facility] 56 HGB 15.2 14.0 - 16.8 g/dL 11/13/2023 11:55 AM T [facility] 56 HCT 44.5 40.0 - 48.4 % 11/13/2023 11:55 AM EDT [facility] 56 MCV 87.9 82.0 - 99.5 fL 11/13/2023 11:55 AM EDT [facility] 56 MCH 30.0 27.0 - 34.0 pg 11/13/2023 11:55 AM EDT [facility] 56 MCHC 34.2 32.0 - 36.0 g/dL 11/13/2023 11:55 AM EDT [facility] 56- RDW 11.9 11.5 - 15.5 % 11/13/2023 11:55 AM EDT [facility] 56 PLT 299 140 - 400 K/uL 11/13/2023 11:55 AM EDT [facility] 56 MPV 9.2 6.6 - 11.1 fL 11/13/2023 11:55 AM EDT [facility] Blood Venous blood specimen / Unknown Venipuncture / Unknown 11/13/2023 11:46 AM EDT 11/13/2023 11:47 AM EDT Marlena Killian MD LAB BLOOD ORDERA [facility]ES [facility] [place] [address] [facility] [address] documented in this encounter Visit Diagnoses Diagnosis Elevated LFTs Other abnormal blood chemistry Prediabetes Other abnormal glucose Abnormal blood cell count Acquired hypothyroidism Unspecified hypothyroidism documented in this encounter Care Teams Router Tender Relationship Specialty Start Date End Date Marlena Killian MD 200 [facility] [place] [address] PCP - General 12/25/08 documented as of this encounter
--- OUTSIDE RECORDS SUMMARY | 2024-02-24 08:04 | External Medical Summary | Summary of Care ---
Author Name Unknown Organization [facility] Address [address] [place] [address] Phone [phone] Care Team Providers Care Stitch Welder Name Role Phone Aaliyah Killian MD Primary Care Provider + Reason for Visit * Reason Onset Date Comments Medication Refill 12/06/2023 Encounter Details Date Type Department Care Team (Late st Contact Info) Description 12/06/2023 Refill General Internal Medicine [facility] [address] [place] [address] Aaliyah Killian MD [address] [place] [address] Acquired hypothyroidism Allergies No known active allergiesdocumented as of this encounter (statuses as of 12/06/2023) Medications Medication Sig Dispensed Refills Start Date [...] or other meds) 30 Tablet 12/06/2023 Active Levothyroxine Sodium 100 MCG Oral Tablet (Levoxyl)Indications :Acquired hypothyroidism Take 1 Tablet by mouth daily first thing in the morning. (at least 30 min prior to breakfast or other meds) 30 Tablet 10/05/2023 4 Discontinue d(Refill) documented as of this encounter (statuses as of 12/06/2023) Active Problems Problem Noted Date Diagnosed Date Prediabetes 12/22/2019 Overview: Per Prediabetes protocol Hypothyroidism 04/24/2012 RECURRENT ACUTE SINUSITIS 06/01/2010 Allergic rhinitis 06/01/2010 Wheezing 06/01/2010 documented as of this encounter (statuses as of 12/06/2023) Immunizations Name Administration Dates Next Due COVID-19 mRNA, LNP-s, No Pre serve, 2-Dose Series ([employer]) 01/19/2021,07/01/2020,06/10/2020 Hepatitis B, 20+ yrs 10/17/2023,05/21/2023,04/17 Seasonal [...] Telephone Encounter - Aaliyah Killian MD - 12/06/2023 1:53 PM EDTSigned Prescriptions: Disp Refills Levothyroxine Sodium 100 MCG Oral Tablet (*30 Tab*0 Sig: Take 1 Tablet by mouth daily first thing in the morning. (at least 30 min prior to breakfast or other meds) Authorizing Provider: AALIYAH KILLIAN * Telephone Encounter - Alok Newton CMA - 12/06/2023 1:10 PM EDTPending Prescriptions: Disp Refills Levothyroxine Sodium 100 MCG Oral Tablet (*30 Tab*0 Sig: Take 1 Tablet by mouth daily first thing in the morning. (at least 30 min prior to breakfast or other meds) * Telephone Encounter - Danni Bueno OSA - 12/06/2023 12:30 PM EDT Did you pend patient's preferred pharmacy and medication before forwarding?yes Pharmacy: [facility] [id number] [place] Pending Prescriptions: Disp Refills Levothyroxine [...] appointment Last date the medication was ordered: 10/05/2023 Is this request for a controlled substance?No [...] AM EST Office Visit General Internal Medicine [facility] [address] [place] [address] Aaliyah Killian MD 200 [place] [address] Health Maintenance Due Date Last Done Comments HIV Screening 08/11/1982 Cologuard 08/11/2012 Fecal Occult Blood Test 08/11/2012 Sigmoidoscopy 08/11/2012 Depression Screening 03/01/2023 03/01/2022 COVID-19 Vaccine ( season) 2023 01/19/2021, 07/01/2020, 06/10/2020 Influenza Vaccine (FLU shot) (#1) 2023 01/01/2022, 12/25/2020, 12/25/2020, Additional history exists HbA1c 11/12/2024 11/13/2023, 0 08/2023, 03/01/2022, Additional history exists TSH 11/12/2024 [...] hypothyroidism documented in this encounter Care Teams Stitch Welder Relationship Specialty Start Date End Date Aaliyah Killian MD [facility] [place] [address] PCP - General 12/25/08 documented as of this encounter
--- OUTSIDE RECORDS SUMMARY | 2024-02-24 08:05 | External Medical Summary ---
Author Name Unknown Address Unknown Organization [id number]:[place] [address] Laboratory Report Ordering Provider Test Date Status RITESH FISCHER 11/13/2023 11:46:43 Final Observation Date Value Abnormality Reference (Units ) Status WBC, Total 11/13/2023 11:46:43 8.34 4.00-10.8 0 (K/uL) Final RBC 11/13/2023 11:46:43 5.06 4.50-5.25 (M/uL) Final Hemoglobin 11/13/2023 11:46:43 15.2 14.0-16.8 (g/dL) Final HCT 11/13/2023 11:46:43 44.5 40.0-48.4 (%) Final MCV 11/13/2023 11:46:43 87.9 82.0-99.5 (fL) Final MCH 11/13/2023 11:46:43 30.0 27.0-34.0 (pg) Final MCHC 11/13/2023 11:46:43 34.2 32.0-36.0 (g/dL) Final RDW 11/13/2023 11:46:43 11.9 11.5-15.5 (%) Final Platelets 11/13/2023 11:46:43 299 140-400 (K /uL) Final MPV 11/13/2023 11:46:43 9.2 6.6-11.1 ( fL) Final Performing Location [place] [address]
--- OUTSIDE RECORDS SUMMARY | 2024-02-24 08:05 | External Medical Summary ---
Author Name Unknown Address Unknown Organization [id number]:[facility] [address] [place] [address] Laboratory Report Ordering Provider Test Date Status RITESH FISCHER 11/13/2023 11:46:43 Final Observation Date Value Abnormality Reference (Units ) Status BUN 11/13/2023 11:46:43 13 6-20 (mg/dL) Final Creatinine 11/13/2023 11:46:43 0.9 0.6-1.2 (mg/dL) Final Glomerular filtration rate/1.73 sq M.predicted [Volume Rate/Area] in Serum, Plasma or Blood by Creatinine-based formula (CKD-EPI) 11/13/2023 11:46:43 >90 >=60 (mL/min) Final eGFR is calculated based on the CKD-EPI 2020 equation. Sodium 11/13/2023 11:46:43 140 135-146 (m mol/L) Final Potassium 11/13/2023 11:46:43 4.5 3.5-5.1 (m mol/L) Final Cl 11/13/2023 11:46:43 104 98-107 (mm ol/L) Final CO2 11/13/2023 11:46:43 25 22-32 (mmo l/L) Final Anion gap 11/13/2023 11:46:43 11 7-15 (mmol /L) Final Glucose 11/13/2023 11:46:43 89 70-120 (mg /dL) Final Albumin 11/13/2023 11:46:43 4.7 3.8-5.0 (g /dL) Final AST (Aspartate aminotransferase) 11/13/2023 11:46:43 49 10-50 (U/L) Fin al Alk Phos 11/13/2023 11:46:43 146 Above high normal 35 -130 (U/L) Final Bilirubin, Total 11/13/2023 11:46:43 1.2 <=1 .2 (mg/dL) Final Calcium 11/13/2023 11:46:43 9.5 8.4-10.2 ( mg/dL) Final Protein 11/13/2023 11:46:43 7.4 6.0-8.3 (g /dL) Final ALT (Alanine aminotransferase) 11/13/2023 11:46:43 77 Above high normal 10-50 (U/L) Final Performing Location [facility] [address] [place] [address]
--- OUTSIDE RECORDS SUMMARY | 2024-02-24 08:05 | External Medical Summary ---
Author Name Unknown Address Unknown Organization [id number]:[facility] [place] [address] Laboratory Report Ordering Provider Test Date Status RITESH FISCHER 11/13/2023 11:46:43 Final Observation Date Value Abnormality Reference (Units ) Status Bilirubin, Direct 11/13/2023 11:46:43 0.2 0. 0-0.3 (mg/dL) Final Performing Location [facility] [place] [address]
--- OUTSIDE RECORDS SUMMARY | 2024-02-24 08:05 | External Medical Summary | Summary of Care ---
Author Name Unknown Organization [facility] Address [address] [place] [address] Phone [phone] Care Team Providers Care Construction Helper Name Role Phone Marlena Killian MD Primary Care Provider + Encounter Details Date Type Department Care Team (Late st Contact Info) Description 09/03/2023 Orders Only PATIENT PORTAL DO NOT DELETE THIS DEPT USED BY [place] [address] Allergies No known active allergiesdocumented as of this encounter (statuses as of 09/03/2023) Medications Medication Sig Dispensed Refills Start Date [...] 100 MCG Oral Tablet (Levoxyl)Indications: Acquired hypothyroidism TAKE 1 TABLET BY MOUTH EVERY MORNING AT LEAST 30 MINUTE PRIOR TO BREAKFAST OR OTHER MEDICATIONS 30 Tablet 08/28/2023 Active documented as of this encounter (statuses as of 09/03/2023) Active Problems Problem Noted Date Diagnosed Date Prediabetes 12/22/2019 Overview: Per Prediabetes protocol Hypothyroidism 04/24/2012 RECURRENT ACUTE SINUSITIS 06/01/2010 Allergic rhinitis 06/01/2010 Wheezing 06/01/2010 documented as of this encounter (statuses as of 09/03/2023) Immunizations Name Administration Dates Next Due COVID-19 mRNA, LNP-s, No Pre serve, 2-Dose Series ([employer]) 01/19/2021,07/01/2020,06/10/2020 Hepatitis B, 20+ yrs 05/21/2023,04/17/2023 Seasonal Influenza Virus Vac cine, Unspecified Formulation 01/01/2022,12/25/2020,12/07/2019,2018,12/15/2017,12/10/2016,12/17/2015,1 ,11/25/2011,12/20/2009, 009 Seasonal Influenza, PF, 6 M & above, IM , (FluLaval or Fluzone) 12/25/2020,12/15/2017,12/10/2016 Seasonal Influenza, QUAD, wi th Preserv, 6 mons & Above, 0.5 mL, IM 02/01/2019 Seasonal Influenza, Quadriva lent, No Preserve, IM 12/17/2015 Seasonal Influenza, Quadriva lent, No Preserve, Mdck 12/07/2019 Seasonal Influenza, Split, I IV3, With Preserve, Inj 12/22/2014,12/10/2013,12/28/2012,2011,12/20/2009,12/16/2008 Seasonal Influenza, Trivalen t, Adjuvanted, 65+ yrs 12/07/2019 TD, Preservative Free 08/15/2012 TDAP (age [...] Care Team (Late st Contact Info) Description 09/20/2023 8:00 AM EDT Nurse Only [facility] [address] [place] [address] Nurse, Int Med [address] [place] [address] 04/17/2024 8:00 AM EST Office Visit General Internal Medicine [facility] [address] [place] [address] Marlena Killian MD [address] [place] [address] [address] Health Maintenance Due Date Last Done Comments HIV Screening 08/11/1982 Cologuard 08/11/2012 Fecal Occult Blood Test 08/11/2012 Sigmoidoscopy 08/11/2012 COVID-19 Vaccine ( season) 2022 01/19/2021, 07/01/2020, 06/10/2020 Depression Screening 03/01/2023 03/01/2022 Hepatitis B (3 of 3 - 19+ 3-dose series) 10/16/2023 05/21/2023, 04/17/2023 Influenza Vaccine (FLU shot) (Season Ended) 2023 01/01/2022, 12/25/2020, 12/25/2020, Additional history exists HbA1c 04/17/2024 04/17/2023, 02/10, 03/03/2021, Additional history exists TSH 04/17/2024 04/17/2023, 02/10, 03/03/2021, Additional history exists Lipid Panel 04/17/2028 04/17/2023, 02/10, 03/03/2021, Additional history exists Colonoscopy 11/30/2031 11/29/2021 Colorectal Cancer Screening 11/30/2031 DTaP,Tdap,and Td Vaccines (4 - Td or Tdap) 04/17/2033 04/17/2023, 08/15/2012, 08/10/2002 Hepatitis C Screening Completed 04/29/2010 Zoster Vaccines Completed 02/09/2020, 11/25/2019 GARDASIL-HPV IMMUNIZATION SERIES Aged Out No longer eligible based on [...] filedocumented as of this encounter Care Teams Construction Helper Relationship Specialty Start Date End Date Marlena Killian MD [address] [place] [address] [place] [address] PCP - General 12/25/08 documented as of this encounter
--- OUTSIDE RECORDS SUMMARY | 2024-02-24 08:05 | External Medical Summary ---
Author Name Unknown Address Unknown Organization [id number]:[facility] [place] [facility] [address] [facility] [address] Laboratory Report Ordering Provider Test Date Status RITESH FISCHER 11/13/2023 11:46:43 Final Observation Date Value Abnormality Reference (Units ) Status HbA1C 11/13/2023 11:46:43 5.8 Above high normal 4. 0-5.6 (%) Final The use of HbA1c to monitor glycemic status is based on normal hemoglobin and HbA composition. This test should not be used in patients with abnormal hemoglobin that affects the half life of the red blood cell or the in vivo glycation rates. Glucose, estimated average 11/13/2023 11:46:43 120 <126 (mg/dL) Final Performing Location [facility] [place] [facility] [address] [facility] [address]
--- OUTSIDE RECORDS SUMMARY | 2024-02-24 08:05 | External Medical Summary | Summary of Care ---
Author Name Unknown Organization [facility] Address [address] [place] [address] Phone [phone] Care Team Providers Care Director Alumni Relations Name Role Phone Aaliyah Killian MD Primary Care Provider + Reason for Visit * Reason Onset Date Comments Medication Refill 10/03/2023 Encounter Details Date Type Department Care Team (Late st Contact Info) Description 10/03/2023 Refill General Internal Medicine [facility] [address] [place] [address] Aaliyah Killian, DO 1800 [facility] [address] Acquired hypothyroidism Allergies No known active allergiesdocumented as of this encounter (statuses as of 10/05/2023) Medications Medication Sig Dispensed Refills Start Date [...] or other meds) 30 Tablet 10/05/2023 Active Levothyroxine Sodium 100 MCG Oral Tablet (Levoxyl)Indications :Acquired hypothyroidism Take 1 Tablet by mouth daily first thing in the morning. (at least 30 min prior to breakfast or other meds) 30 Tablet 10/01/2023 4 Discontinue d(Refill) documented as of this encounter (statuses as of 10/05/2023) Active Problems Problem Noted Date Diagnosed Date Prediabetes 12/22/2019 Overview: Per Prediabetes protocol Hypothyroidism 04/24/2012 RECURRENT ACUTE SINUSITIS 06/01/2010 Allergic rhinitis 06/01/2010 Wheezing 06/01/2010 documented as of this encounter (statuses as of 10/05/2023) Immunizations Name Administration Dates Next Due COVID-19 mRNA, LNP-s, No Pre serve, 2-Dose Series ([employer]) 01/19/2021,07/01/2020,06/10/2020 Hepatitis B, 20+ yrs 05/21/2023,04/17/2023 Seasonal [...] Telephone Encounter - Aaliyah Killian MD - 10/05/2023 11:22 AM EDT Signed Prescriptions: Disp Refills Levothyroxine Sodium 100 MCG Oral Tablet (*30 Tab*0 Sig: Take 1 Tablet by mouth daily first thing in the morning. (at least 30 min prior to breakfast or other meds) Authorizing Provider: AALIYAH KILLIAN * Telephone Encounter - Alok Newton, [email or web address] ASSIST - 10/04/2023 4:12 PM EDT Pending Prescriptions: Disp Refills Levothyroxine Sodium 100 MCG Oral Tablet (*30 Tab*0 Sig: Take 1 Tablet by mouth daily first thing in the morning. (at least 30 min prior to breakfast or other meds) * Telephone Encounter - Diann Prater OSA - 10/03/2023 7:31 AM EDT Did you pend patient's preferred pharmacy and medication before forwarding?yes [facility]acy: [facility] [id number] [place] [address] Pending Prescriptions: Disp Refills Levothyroxine Sodium 100 [...] appointment Last date the medication was ordered: Is this request for a controlled substance?No Urine Drug Screen:No results found for this or any previous visit. Patient Phone Numbers Labs: Lab Results Component Value Date/Time CREAT 0.88 08/20/2023 12:31 PM CREAT 1.1 12/10/2019 08:14 AM POTASSIUM 4.4 08/20/2023 12:31 PM POTASSIUM 4.3 12/10/2019 08:14 AM TSH 4.85 (H) 04/17/2023 09:12 AM TSH 4.27 (H) 12/10/2019 08:14 AM LDLCALC 154 (H) 04/17/2023 09:12 AM LDLCALC 149 (H) 12/10/2019 08:14 AM LDLDIRECT NOT APPLICABLE 12/10/2019 08:14 AM LDLDIRECT 169 (H) 07/16/2014 09:25 AM ALT 103 (H) 08/03/2023 07:31 AM ALT 73 (H) 12/10/2019 08:14 AM HGBA1C 6.0 (H) 04/17/2023 09:12 AM HGBA1C 6.1 (H) 12/10/2019 08:14 AM documented in this encounter Plan of Treatment Upcoming Encounters Date Type Department Care Team (Late st Contact Info) Description 10/17/2023 8:00 AM EDT [facility] [place] [address] [place] [address] Nurse, Int Med [address] [place] [address] 04/17/2024 8:00 AM EST Office Visit [facility] [place] [address] [place] [address] [address] Aaliyah Killian MD 200 [facility] [place] [address] Health Maintenance Due Date Last Done Comments HIV Screening 08/11/1982 Cologuard 08/11/2012 Fecal Occult Blood Test 08/11/2012 Sigmoidoscopy 08/11/2012 COVID-19 Vaccine ( season) 2022 01/19/2021, 07/01/2020, 06/10/2020 Depression Screening 03/01/2023 03/01/2022 Hepatitis B Vaccine (3 of 3 - 19+ 3-dose series) 10/16/2023 05/21/2023, 04/17/2023 Influenza Vaccine (FLU shot) (#1) 2023 01/01/2022, [...] 11/25/2019 Hepatitis C Screening Completed 08/20/2023, 011 HPV (Gardasil) Vaccine Aged Out No lo [...] hypothyroidism documented in this encounter Care Teams Director Alumni Relations Relationship Specialty Start Date End Date Aaliyah Killian MD 200 [facility] [place] [address] PCP - General 12/25/08 documented as of this encounter
--- OUTSIDE RECORDS SUMMARY | 2024-02-24 08:05 | External Medical Summary | Summary of Care ---
Author Name Unknown Organization [facility] Address [address] [place] [address] Phone [phone] Care Team Providers Care Principal Trainer Name Role Phone Marlena Killian MD Primary Care Provider + Reason for Visit * Reason Comments NEW PATIENT Left hand Encounter Details Date Type Department Care Team (Late st Contact Info) Description 10/29/2023 3:45 PM EDT Office Visit Orthopaedics [facility] [address] [place] [address] SharerNichol PA-C [address] [facility] [place] [address] Contusion of left hand, initial encounter* Allergies No known active allergiesdocumented as of this encounter (statuses as of 10/29/2023) Medications Medication Sig Dispensed Refills Start Date [...] as of this encounter (statuses as of 10/29/2023) Active Problems Problem Noted Date Diagnosed Date Prediabetes 12/22/2019 Overview: Per Prediabetes protocol Hypothyroidism 04/24/2012 RECURRENT ACUTE SINUSITIS 06/01/2010 Allergic rhinitis 06/01/2010 Wheezing 06/01/2010 documented as of this encounter (statuses as of 10/29/2023) Immunizations Name Administration Dates Next Due COVID-19 mRNA, LNP-s, No Pre serve, 2-Dose Series ([employer]) 01/19/2021,07/01/2020,06/10/2020 Hepatitis B, 20+ yrs 10/17/2023,05/21/2023,04/17 Seasonal [...] as of this encounter Progress Notes * Sharer, Nichol Watters PA-C - 10/29/2023 4:17 PM EDT Sushil Woods is a 58 year old male who presents for consultation to [facility] for left hand injury/pain. Consult requested by Self . Sushil Woods is here unaccompanied History: Patient is a 58 year old right handed male here today with left hand/finger pain. Reports pain started approximately 2 weeks ago after a fall. Patient states he injured his hand while playing tennis.Reports pain along the palmar aspect of the proximal hand. Symptoms worsened with activities. Notespain with direct pressure. He denies any numbness or tingling. No associated swelling or bruising. Review of systems: All others negative except those noted above in HPI. 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 Tobacco Use Smoking status: Never Smokeless tobacco: Never Tobacco comments: no passive smoke exposures Vaping Use Vaping status: Never Used Substance and Sexual Activity Alcohol use: Yes Comment: rarely Drug use: No Sexual activity: Yes Partners: Female Comment: Other Topics Concern Not on file Social History Narrative [facility] INFORMATION ENVIRONMENTAL HISTORY: Type of Home: Multi-level Type of Heating System: Gas and Forced air Air Conditioning: Yes Central Basement: Finished, Carpeted rooms, Dampness, Dehumidifier and No evidence mold, mildew Home have cockroaches: No Irritants in the home: None Patient's bedroom location: Floor: second Type of yajaira: Carpeting Beds: Number: 1 Type of beds: Mattress and Box spring Pillows: Number: 1 Type of pillows: Synthetic (hypoallergenic, polyester) Bedroom contains: Minimal items Pets: none Lives on a farm: No 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 Entered by: Kosta Maharaj MD 06/01/2010 Social Determinants of Health Financial Resource Strain: Not on file Food Insecurity: No Food Insecurity (03/01/2022) Hunger Vital Sign Worried About Running Out of Food in the Last Year: Never true Ran Out of Food in the Last Year: Never true Transportation Needs: Not on file Social Connections: Unknown (08/28/2023) Social Connections How often do you feel lonely or isolated from those around you? (Adult - for ages 18 years and over): Not on file Housing Stability: Not on file Past Surgical History: Procedure Laterality Date EGD, W/ENDOSCOPIC US 12/20/2012 UPPER GI ENDOSCOPY ENDOSCOPIC ULTRASOUND performed by Corey Brar DO at [facility] REMOVAL OF TONSILS, UNDER AGE 14 age 9 Tonsillectomy Physical Exam There were no vitals filed for this visit. Estimated body mass index is 27.34 kg/m as calculated from the following: Height as of 04/17/23: 1.76 m (5' 9.29"). Weight as of 04/17/23: 84.7 kg (186 lb 11.2 oz). General: generally well-nourished and in no acute distress HEENT: normocephalic, atraumatic, sclera anicteric. Psych: mood and affect normal , cooperative Card: Peripheral pulses: normal in affected extremity (s) Resp: equal chest rise, non-tachypneic, non-labored breathing Skin: no rash, normal Neuro: Coordination: normal; Sensation: normal on affected extremity (s) MSK: Hand Exam, Bilateral Inspection: No swelling or ecchymosis. Skin intact. Palpation: Mild tenderness along thenar eminence Crepitance: no Mass: no Range of Motion: Range of motion: symmetric and normal in both hands Rotation, angulation, or crossover: no Strength: Card Boxer - 5/5 with pain on the left Finger spread - 5/5 Flex - 5/5 Ext - 5/5 Thumb pinch -5/5 Radiology (I have personally reviewed the following films): X-rays of the left hand reviewed with patient. Those x-rays show no acute fracture dislocation. - per my interpretation. Awaiting formal radiology interpretation. Assessment and Plan: Contusion of left hand, initial encounter (Primary) - XR HAND 3 OR MORE VIEWS Recommend rest and may gradually increase activities as pain subsides. Patient will follow up on anas needed basis Nichol Abarca PA-C Orthopaedics [facility] [address] [facility] [place] [address] documented in this encounter Nursing Notes * Teressa Barnes LPN - 10/29/2023 3:58 PM EDT Presents to ortho UC for left hand injury X 2 weeks. 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 Teressa Rodriguez LPN documented in this encounter Plan of Treatment Upcoming Encounters Date Type Department Care Team (Late st Contact Info) Description 04/17/2024 8:00 AM EST Office Visit General Internal Medicine [facility] 200 [facility] [place] [address] Marlena Killian MD 200 [facility] [place] [address] Pending Results Name Type Priority Associated Diagnoses Date /Time XR HAND 3 OR MORE VIEWS Medical Imaging Routine Contusion of left hand, initial encounter 10/29/2023 4:08 PM EDT Health Maintenance Due Date Last Done Comments HIV Screening 08/11/1982 Cologuard 08/11/2012 Fecal Occult Blood Test 08/11/2012 Sigmoidoscopy 08/11/2012 COVID-19 Vaccine ( season) 2022 01/19/2021, 07/01/2020, 06/10/2020 Depression Screening 03/01/2023 03/01/2022 Influenza Vaccine (FLU shot) (#1) 2023 01/01/2022, [...] as of this encounter Visit Diagnoses Diagnosis Contusion of left hand, initial encounter- Primary documented in this encounter Care Teams Principal Trainer Relationship Specialty Start Date End Date Marlena Killian MD 200 [facility] [place] [address] PCP - General 12/25/08 documented as of this encounter
--- OUTSIDE RECORDS SUMMARY | 2024-02-24 08:05 | External Medical Summary ---
Author Name Unknown Address Unknown Organization K01:[facility] - [address] [place] [address] [place] [address] Laboratory Report Ordering Provider Test Date Status RITESH FISCHER 11/13/2023 11:46:43 Final Observation Date Value Abnormality Reference (Units ) Status Lipase 11/13/2023 11:46:43 42 13-60 (U/L ) Final Performing Location [facility] - [address] [place] [address]
--- OUTSIDE RECORDS SUMMARY | 2024-02-24 08:05 | External Medical Summary | Summary of Care ---
Author Name Unknown Organization [facility] Address [address] [place] [address] Phone [phone] Care Team Providers Care Health Occupations Teacher Name Role Phone Aaliyah Killian MD Primary Care Provider + Reason for Visit * Reason Comments eRx-Medication Refill Encounter Details Date Type Department Care Team (Late st Contact Info) Description 08/28/2023 Refill General Internal Medicine [facility] 200 [facility] [place] [address] Tegan Gutierres MD 200 [facility] [place] [address] Acquired hypothyroidism Allergies No known active allergiesdocumented as of this encounter (statuses as of 09/01/2023) Medications Medication Sig Dispensed Refills Start Date [...] 100 MCG Oral Tablet (Levoxyl)Indicatio ns:Acquired hypothyroidism TAKE 1 TABLET BY MOUTH EVERY MORNING AT LEAST 30 MINUTE PRIOR TO BREAKFAST OR OTHER MEDICATIONS 30 Tablet 4 Active Levothyroxine Sodium 88 MCG Oral Tablet (Levoxyl)Indicatio ns:Hypothyroidism Take 1 Tablet by mouth in the morning. 90 Tablet 2 4 08/28/19 24 Discontinued(Me dication/Dose Changed) Levothyroxine Sodium 100 MCG Oral Tablet (Levoxyl)Indicatio ns:Acquired hypothyroidism Take 1 Tablet by mouth in the morning. (at least 30 min prior to breakfast or other meds). 30 Tablet 2 4 08/28/19 24 Discontinued documented as of this encounter (statuses as of 09/01/2023) Active Problems Problem Noted Date Diagnosed Date Prediabetes 12/22/2019 Overview: Per Prediabetes protocol Hypothyroidism 04/24/2012 RECURRENT ACUTE SINUSITIS 06/01/2010 Allergic rhinitis 06/01/2010 Wheezing 06/01/2010 documented as of this encounter (statuses as of 09/01/2023) Immunizations Name Administration Dates Next Due COVID-19 mRNA, LNP-s, No Pre serve, 2-Dose Series ([employer]) 01/19/2021,07/01/2020,06/10/2020 Hepatitis B, 20+ yrs 05/21/2023,04/17/2023 Seasonal [...] encounter Miscellaneous Notes * Telephone Encounter - Brian, Care Gaps - 09/01/2023 7:26 PM EDT Received message from [facility] regarding patient needing labs. Patient was notified. Successfully contacted patient and provided [facility] message. * Telephone Encounter - Valeria Parrish PHARM Tech - 09/01/2023 11:53 AM EDT Received message from [facility] regarding patient needing labs. Call Placed, Left message on voicemail advising of required labs Thank you for your assistance Valeria Parrish Cheese Weigher II [facility] 09/01/2023,11:53 AM * Telephone Encounter - Vera Klein [facility] - 08/28/2023 8:50 PM EDTSigned Prescriptions: Disp Refills Levothyroxine Sodium 100 MCG Oral Tablet (*30 Tab*0 Sig: TAKE 1 TABLET BY MOUTH EVERY MORNING AT LEAST 30 MINUTE PRIOR TO BREAKFAST OR OTHER MEDICATIONS Authorizing Provider: AALIYAH KILLIAN Ordering User: VERA KLEIN * Telephone Encounter - Vera Klein [facility] - 08/28/2023 8:44 PM EDT Provided 30 days supply with 0 refill(s). Per refill protocol patient should have REPEAT TSH on file. Reviewed AMP report, Care Gaps/Health Maintenance, medications list, and for any routine labs typically ordered for this patient. Lab orders placed. Please contact patient to advise of labs ordered for blood draw. Fasting is not required. Advise toobtain labs before requesting the next refill. Thank you, Vera Klein PharmD Clinical Pharmacist [facility]) [phone] 08/28/2023, 8:46 PM documented in this encounter Plan of Treatment Upcoming Encounters Date Type Department Care Team (Late st Contact Info) Description 09/20/2023 8:00 AM EDT Nurse Only Ancillary [facility] [place] 200 [facility] [place] [address] Nurse, Int Med 200 [facility] [place] [address] 04/17/2024 8:00 AM EST Office Visit General Internal Medicine [facility] [place] 200 [facility] [place] [address] Aaliyah Killian MD 200 [facility] [place] [address] Scheduled Orders Name Type Priority Associated Diagnoses Orde r Schedule TSH WITH FREE T4 IF INDICATED Lab Routine Acquired hypothyroidism Expected: 08/28/2023, Expires: 08/27/2024 Health Maintenance Due Date Last Done Comments [...] hypothyroidism documented in this encounter Care Teams Health Occupations Teacher Relationship Specialty Start Date End Date Aaliyah Killian MD 200 [facility] [place] [address] PCP - General 12/25/08 documented as of this encounter
--- OUTSIDE RECORDS SUMMARY | 2024-02-24 08:05 | External Medical Summary | Summary of Care ---
Author Name Unknown Organization [facility] Address [address] [place] [address] Phone [phone] Care Team Providers Care Machined Parts Metal Sprayer Name Role Phone Aaliyah Killian MD Primary Care Provider + Reason for Visit * Reason Comments eRx-Medication Refill Encounter Details Date Type Department Care Team (Late st Contact Info) Description 08/28/2023 Refill General Internal Medicine [facility] 200 [facility] [place] [address] Tegan Gutierres MD 200 [place] [address] Acquired hypothyroidism Allergies No known active allergiesdocumented [...] mRNA, LNP-s, No Pre serve, 2-Dose Series ([employer]) 01/19/2021,07/01/2020,06/10/2020 Hepatitis B, 20+ yrs 05/21/2023,04/17/2023 Seasonal [...] encounter Miscellaneous Notes * Telephone Encounter - Valeria Parrish, motorcycle police - 09/01/2023 11:53 AM EDT Received message from [facility] regarding patient needing labs. Call Placed, Left message on voicemail advising of required labs Thank you for your assistance Valeria Parrish Tree Fruit And Nut Farming Supervisor II [facility] 09/01/2023,11:53 AM * Telephone Encounter - Vera Klein RP - 08/28/2023 8:50 PM EDTSigned Prescriptions: Disp Refills Levothyroxine Sodium 100 MCG Oral Tablet (*30 Tab*0 Sig: TAKE 1 TABLET BY MOUTH EVERY MORNING AT LEAST 30 MINUTE PRIOR TO BREAKFAST OR OTHER MEDICATIONS Authorizing Provider: AALIYAH KILLIAN Ordering User: VERA KLEIN * Telephone Encounter - Vera Klein RPh - 08/28/2023 8:44 PM EDT Provided 30 [...] Clinical Pharmacist [facility]) [phone] 08/28/2023, 8:46 PM documented in this encounter Plan of Treatment Upcoming Encounters Date Type Department Care Team (Late st Contact Info) Description 09/20/2023 8:00 AM EDT Nurse Only Ancillary [facility] [place] [address] [place], [place] [address] Nurse, Int Med 200 [facility] [place] [address] 04/17/2024 8:00 AM EST Office Visit General Internal Medicine [facility] [place] 200 [place] [address] Aaliyah Killian MD 200 [facility] [place] [address] Scheduled Orders Name Type Priority Associated Diagnoses [...] hypothyroidism documented in this encounter Care Teams Machined Parts Metal Sprayer Relationship Specialty Start Date End Date Aaliyah Killian MD [address] [place] [address] PCP - General 12/25/08 documented as of this encounter
--- OUTSIDE RECORDS SUMMARY | 2024-02-24 08:05 | External Medical Summary | Summary of Care ---
Author Name Unknown Organization [facility] Address [address] [place] [address] Phone [phone] Care Team Providers Care Cloth Washer Name Role Phone Marlena Killian MD Primary Care Provider + Reason for Visit * Reason Onset Date Comments FYI 09/18/2023 Encounter Details Date Type Department Care Team (Late st Contact Info) Description 09/18/2023 Telephone General Internal Medicine [facility] [place] 200 [facility] [place] [address] Marlena Killian MD 200 [facility] [place] [address] FYI Allergies No known active allergiesdocumented as of this encounter (statuses as of 09/18/2023) Medications Medication Sig Dispensed Refills Start Date [...] as of this encounter (statuses as of 09/18/2023) Active Problems Problem Noted Date Diagnosed Date Prediabetes 12/22/2019 Overview: Per Prediabetes protocol Hypothyroidism 04/24/2012 RECURRENT ACUTE SINUSITIS 06/01/2010 Allergic rhinitis 06/01/2010 Wheezing 06/01/2010 documented as of this encounter (statuses as of 09/18/2023) Immunizations Name Administration Dates Next Due COVID-19 mRNA, LNP-s, No Pre serve, 2-Dose Series ([employer]) 01/19/2021,07/01/2020,06/10/2020 Hepatitis B, 20+ yrs 05/21/2023,04/17/2023 Seasonal [...] encounter Miscellaneous Notes * Telephone Encounter - Marlena Killian MD - 09/18/2023 8:07 PM EDT I did talk to the patient and reviewed all the labs and CT scan report he has scanned and send it in my G portal. Overall labs are fine with LFTs trending down. Patient is clinically feeling much better now. CT scan shows small pulmonary nodule and left adrenal adenoma both looks benign at this point. We discussed getting repeat scan done in a year from now and get repeat blood work in 4 to 6 weeks. Patient will be getting repeat fasting blood work and get all the future orders except Apo B as it was already done and it was normal. Advised to tell laborer powerhouse next time when he gets blood worknot to do Apo B but do all other future lab work. Patient appreciated the phone call. documented in this encounter Plan of Treatment Upcoming Encounters Date Type Department Care Team (Late st Contact Info) Description 09/20/2023 8:00 AM EDT Nurse Only Ancillary [facility] [place] 200 [facility] [place] [address] Nurse, Int Med 200 [facility] [place] [address] 04/17/2024 8:00 AM EST Office Visit General Internal Medicine [facility] [place] 200 [facility] [place] [address] Marlena Killian MD 200 [facility] [place] [address] Health Maintenance Due Date Last Done Comments [...] Completed 04/29/2010 Zoster Vaccines Completed 02/09/2020, 11/25/2019 HPV (Gardasil) Vaccine Aged Out No lo [...] filedocumented as of this encounter Care Teams Cloth Washer Relationship Specialty Start Date End Date Marlena Killian MD 200 [facility] [place] [address] PCP - General 12/25/08 documented as of this encounter
--- OUTSIDE RECORDS SUMMARY | 2024-02-24 08:05 | External Medical Summary ---
Author Name Unknown Address Unknown Organization K09:[facility] [place] [address] Laboratory Report Ordering Provider Test Date Status RITESH FISCHER 11/13/2023 11:46:43 Final Observation Date Value Abnormality Reference (Units ) Status SYNC LEUKOCYTES IN BLOOD BY AUTOMATED COUNT 11/13/2023 11:46:43 8.34 4.00-10.80 (K/uL) Final Segs 11/13/2023 11:46:43 56.0 40.0-75.0 (%) Final Lymphs % 11/13/2023 11:46:43 33.5 18.0-42.0 (%) Final Monos 11/13/2023 11:46:43 8.4 1.0-11.0 (%) Final Eosinophils 11/13/2023 11:46:43 1.9 0.0-6.0 (%) Final Basos 11/13/2023 11:46:43 0.2 0.0-2.0 (%) Final Absolute Segs 11/13/2023 11:46:43 4.67 1.80-7.70 (K/uL) Final Lymphs, absolute 11/13/2023 11:46:43 2.79 1.00-4.80 (K/ul) Final Monos, Abs 11/13/2023 11:46:43 0.70 0.00-1.10 (K/uL) Final Eos, Abs 11/13/2023 11:46:43 0.16 0.00-0.70 (K/uL) Final Basos, Abs 11/13/2023 11:46:43 0.02 0.00-0.20 (K/uL) Final Performing Location [facility] [place] [address]
--- OUTSIDE RECORDS SUMMARY | 2024-02-24 08:05 | External Medical Summary ---
Author Name Unknown Address Unknown Organization K01:[facility] [address] [place] [address] Laboratory Report Ordering Provider Test Date Status RITESH FISCHER 11/13/2023 11:46:43 Final Observation Date Value Abnormality Reference (Units ) Status GGT 11/13/2023 11:46:43 161 Above high normal <= 60 (U/L) Final Performing Location [facility] [address] [place] [address]
--- OUTSIDE RECORDS SUMMARY | 2024-02-24 08:05 | External Medical Summary | Summary of Care ---
Author Name Unknown Organization [facility] Address [address] [place] [address] Phone [phone] Care Team Providers Care Food Service Manager Name Role Phone Aaliyah Killian MD Primary Care Provider + Reason for Visit * Reason Onset Date Comments Medication Refill 10/01/2023 Encounter Details Date Type Department Care Team (Late st Contact Info) Description 10/01/2023 Refill General Internal Medicine [facility] [address] [place] [id number] Aaliyah Killian, DO [address] [facility] [address] Acquired hypothyroidism Allergies No known active allergiesdocumented as of this encounter (statuses as of 10/01/2023) Medications Medication Sig Dispensed Refills Start Date End Date Status MULTI-VITAMIN PO TABS 1 tab by mouth daily Active fluticasone (FLONASE) 50 MCG/ACT nasal sprayIndications:Ot her acute sinusitis,Allergic rhinitis Administer 2 Sprays into each nostril daily. 1 Bottle 5 07/16/2014 Active Esomeprazole Magnesium 20 MG Oral Packet Take 20 mg by mouth daily before breakfast. Active Rosuvastatin Calcium 5 MG Oral Tablet (Crestor)Indication s:Hyperlipidemia with target LDL less than 100 Take 1 Tablet by mouth in the morning. 30 Tablet 5 07/03/2023 Active Levothyroxine Sodium 100 MCG Oral Tablet (Levoxyl)Indication s:Acquired hypothyroidism Take 1 Tablet by mouth daily first thing in the morning. (at least 30 min prior to breakfast or other meds) 30 Tablet 10/01/2023 Active Levothyroxine Sodium 100 MCG Oral Tablet (Levoxyl)Indication s:Acquired hypothyroidism TAKE 1 TABLET BY MOUTH EVERY MORNING AT LEAST 30 MINUTE PRIOR TO BREAKFAST OR OTHER MEDICATIONS 30 Tablet 08/28/2023 4 Discontinue d(Refill) documented as of this encounter (statuses as of 10/01/2023) Active Problems Problem Noted Date Diagnosed Date Prediabetes 12/22/2019 Overview: Per Prediabetes protocol Hypothyroidism 04/24/2012 RECURRENT ACUTE SINUSITIS 06/01/2010 Allergic rhinitis 06/01/2010 Wheezing 06/01/2010 documented as of this encounter (statuses as of 10/01/2023) Immunizations Name Administration Dates Next Due COVID-19 mRNA, LNP-s, No Pre serve, 2-Dose Series ([employer]) 01/19/2021,07/01/2020,06/10/2020 Hepatitis B, 20+ yrs 05/21/2023,04/17/2023 Seasonal [...] Telephone Encounter - Aaliyah Killian MD - 10/01/2023 1:46 PM EDTSigned Prescriptions: Disp Refills Levothyroxine Sodium 100 MCG Oral Tablet (*30 Tab*0 Sig: Take 1 Tablet by mouth daily first thing in the morning. (at least 30 min prior to breakfast or other meds) Authorizing Provider: AALIYAH KILLIAN * Telephone Encounter - Shruthi Chang [facility] - 10/01/2023 12:58 PM EDT Pending Prescriptions: Disp Refills Levothyroxine Sodium 100 MCG Oral Tablet (*30 Tab*0 Sig: (at least 30 min prior to breakfast or other meds) * Telephone Encounter - Shruthi Chang [facility] - 10/01/2023 12:57 PM EDT Pending Prescriptions: Disp Refills Levothyroxine Sodium 100 MCG Oral Tablet *30 Tab*0 Sig: (at least 30 min prior to breakfast or other meds) Last Visit: 04/17/2023 (in office), Visit date not found (telemedicine) Next Visit: 04/17/2024 Last date the medication was ordered: 08/28/2023 Patient Active Problem List Diagnosis RECURRENT ACUTE SINUSITIS Allergic rhinitis Wheezing Hypothyroidism Prediabetes Labs: Lab Results Component Value Date/Time CREATININE - [facility] 1.0 04/17/2023 09:12 AM CREATININE - [facility] 1.1 12/10/2019 08:14 AM CREATININE-OUTSIDE LAB 0.88 08/20/2023 12:31 PM Lab Results Component Value Date/Time POTASSIUM - [facility] 4.6 04/17/2023 09:12 AM POTASSIUM - [facility] 4.3 12/10/2019 08:14 AM POTASSIUM-OUTSIDE LAB 4.4 08/20/2023 12:31 PM Lab Results Component Value Date/Time TSH - [facility] 4.85 (H) 04/17/2023 09:12 AM TSH - [facility] 4.27 (H) 12/10/2019 08:14 AM Lab Results Component Value Date/Time LDL CHOLESTEROL (CALCULATED) - [facility] 154 (H) 04/17/2023 09:12 AM LDL CHOLESTEROL (CALCULATED) - [facility] 137 (H) 03/01/2022 09:25 AM LDL CHOLESTEROL (CALCULATED) - [facility] 149 (H) 12/10/2019 08:14 AM LDL CHOLESTEROL (CALCULATED) - [facility] 158 (H) 05/27/2015 08:57 AM LDL CHOLESTEROL (DIRECT MEASURE) - [facility] NOT APPLICABLE 12/10/2019 08:14 AM LDL CHOLESTEROL (DIRECT MEASURE) - [facility] NOT APPLICABLE 05/27/2015 08:57 AM LDL CHOLESTEROL (DIRECT MEASURE) - [facility] 169 (H) 07/16/2014 09:25 AM Lab Results Component Value Date/Time ALT - [facility] 103 (H) 08/03/2023 07:31 AM ALT - [facility] 73 (H) 12/10/2019 08:14 AM ALT-OUTSIDE LAB 109 (A) 09/14/2016 12:00 AM Hemoglobin AIC Results: Lab Results Component Value Date/Time HEMOGLOBIN A1C - [facility] 6.0 (H) 04/17/2023 09:12 AM HEMOGLOBIN A1C - [facility] 5.9 (H) 03/01/2022 09:25 AM HEMOGLOBIN A1C - [facility] 6.1 (H) 03/03/2021 07:23 AM HEMOGLOBIN A1C - [facility] 6.1 (H) 12/10/2019 08:14 AM HEMOGLOBIN A1C - [facility] 5.4 07/16/2014 09:25 AM HEMOGLOBIN A1C - [facility] 5.6 02/27/2012 09:16 AM * Telephone Encounter - Diann Prater OSA - 10/01/2023 11:23 AM EDT Did you pend patient's preferred pharmacy and medication before forwarding?yes Pharmacy: [id number] [id number] [place] Pending Prescriptions: Disp Refills Levothyroxine Sodium 100 MCG Oral Tablet *30 Tab*0 Sig: (at least 30 min prior to breakfast [...] found for this or any previous visit. [phone] Patient Phone Numbers Labs: Lab Results Component [...] 10/17/2023 8:00 AM EDT Nurse Only [facility] [address] [place] [id number] Nurse, Int Med [address] [place] [address] 04/17/2024 8:00 AM EST Office Visit General Internal Medicine [facility] [address] [place] [address] [address] Aaliyah Killian MD [address] [facility] [place] [place] [address] Health Maintenance Due Date Last Done Comments HIV Screening 08/11/1982 Cologuard 08/11/2012 Fecal Occult Blood Test 08/11/2012 Sigmoidoscopy 08/11/2012 COVID-19 Vaccine (4 - 2022-24 season) 2022 01/19/2021, 07/01/2020, 06/10/2020 Depression Screening [...] hypothyroidism documented in this encounter Care Teams Food Service Manager Relationship Specialty Start Date End Date Aaliyah Killian MD [address] [facility] [place] [address] PCP - General 12/25/08 documented as of this encounter
--- OUTSIDE RECORDS SUMMARY | 2024-02-24 08:05 | External Medical Summary | Summary of Care ---
Author Name Unknown Organization [facility] Address [address] [place] [address] Phone [phone] Care Team Providers Care Test Kitchen Home Economist Name Role Phone Marlena Killian MD Primary Care Provider + Reason for Visit * Reason Comments Immunizations Third Hep B vaccine Encounter Details Date Type Department Care Team (Late st Contact Info) Description 10/17/2023 8:00 AM EDT Nurse Only Ancillary [facility] [place] [address] [place] [address] Nurse, Int Med 200 [facility] [place] [address] Immunizations (Third Hep B vaccine) Allergies No known active allergiesdocumented as of this encounter (statuses as of 10/17/2023) Medications Medication Sig Dispensed Refills Start Date [...] as of this encounter (statuses as of 10/17/2023) Active Problems Problem Noted Date Diagnosed Date Prediabetes 12/22/2019 Overview: Per Prediabetes protocol Hypothyroidism 04/24/2012 RECURRENT ACUTE SINUSITIS 06/01/2010 Allergic rhinitis 06/01/2010 Wheezing 06/01/2010 documented as of this encounter (statuses as of 10/17/2023) Immunizations Name Administration Dates Next Due COVID-19 mRNA, LNP-s, No Pre serve, 2-Dose Series ([employer]) 01/19/2021,07/01/2020,06/10/2020 Hepatitis B, 20+ yrs 10/17/2023,05/21/2023,04/17 Seasonal [...] on file documented as of this encounter Nursing Notes * Maycol Berg RN - 10/17/2023 8:00 AM EDT Pre-Administration Time Out Procedure Performed: Yes Patient Identified (Ask Name/Date of ): Yes Does the patient have a fever greater than 101 degrees today? No Patient allergic to latex? No Has the patient ever fainted after receiving an injection? No VFC Stock: No Immunization(s) verified: Yes, Immunization Name: Hep B, VIS Sheet(s) given: Yes Verified Side and Site: Yes Verified Shot(s) with Parent(s)/Patient: Yes documented in this encounter Plan of Treatment Upcoming Encounters Date Type Department Care Team (Late st Contact Info) Description 04/17/2024 8:00 AM EST Office Visit General Internal Medicine [facility] [place] [address] [place] [address] Marlena Killian MD [address] [place] [address] Health Maintenance Due Date Last Done Comments [...] as of this encounter Visit Diagnoses Diagnosis Vaccine for viral hepatitis- Primary Need for prophylactic vaccination and inoculation against viral hepatitis documented in this encounter Care Teams Test Kitchen Home Economist Relationship Specialty Start Date End Date Marlena Killian MD [address] [facility] [place] [address] PCP - General 12/25/08 documented as of this encounter
[2024-02-24 09:57] LABS: Albumin Level 3.7 gm/dl (3.4-5.0); Bilirubin Direct 0.3 mg/dl (0-0.2); Bilirubin,Total 2.9 mg/dl (0.2-1.0); Total Protein 6.1 gm/dl (6.0-8.3)
--- NOTE | 2024-02-24 11:08 | Critical Care Progress Note ---
Date of Service February 24, 2024 Assessment & Plan Admission and Anticipated Discharge Date Admission Date: February 22, 2024 Physical Exam Physical Exam: General: Alert. nontoxic. Skin: Warm, dry, Head: Atraumatic Ears, nose, mouth and throat: airway patent Cardiovascular: Normal peripheral perfusion Respiratory: no respiratory distress Gastrointestinal: Non distended Musculoskeletal: No deformity Results & Data Results & Data Vital Signs (Past 12 Hours) Vital Signs Temp Pulse Resp BP Pulse Ox 02/24/24 10:00 84 20 89/64 L 96 02/24/24 09:10 36.6 C 02/24/24 09:00 102/73 02/24/24 09:00 85 19 97 02/24/24 08:27 91 H 19 96 02/24/24 08:00 100/69 02/24/24 07:51 93 H 28 H 96 02/24/24 07:03 74 13 97 02/24/24 07:00 94/66 L 02/24/24 07:00 94/66 L 02/24/24 06:00 74 13 96/70 L 95 02/24/24 05:15 79 12 95 02/24/24 05:00 102/69 02/24/24 05:00 102/69 02/24/24 04:39 79 16 94 02/24/24 04:30 83 24 96 02/24/24 04:06 79 23 93 02/24/24 04:00 91/71 L 02/24/24 03:57 77 17 95 02/24/24 03:33 77 25 H 94 02/24/24 03:00 73 20 95 02/24/24 03:00 92/67 L 02/24/24 03:00 92/67 L 02/24/24 03:00 92/67 L 02/24/24 02:30 85 21 95 02/24/24 02:24 76 17 95 02/24/24 02:00 89/61 L 02/24/24 01:48 77 19 94 02/24/24 01:21 79 18 95 02/24/24 01:00 90/55 L 02/24/24 01:00 90/55 L 02/24/24 00:42 80 19 91 02/24/24 00:00 83 02/24/24 00:00 37.2 C 82 23 94 Coding
--- NOTE | 2024-02-24 13:25 | Critical Care Progress Note ---
Date of Service February 24, 2024 Assessment & Plan (1) ST elevation (STEMI) myocardial infarction: Plan: 58-year-old male presents to the ICU following anterior STEMI for which she is now post cath with PCI with KAYLEN x 2 to the LAD. Holding antihypertensives and beta-blockade at this time -Blood pressure around 100 systolic, certainly would consider reinitiation of beta-blockade tomorrow unless cardiology feels otherwise Troponins have peaked and are now downtrending, critical care will sign off at this time (2) GERD (gastroesophageal reflux disease): Plan: Continue PPI (3) Hypercholesterolemia: Plan: Continue statin (4) Hypothyroidism: Plan: Continue Synthroid (5) Leukocytosis: Admission and Anticipated Discharge Date Admission Date: February 22, 2024 Subjective Patient is very pleasant. Denies chest pain shortness of breath lightheadedness or dizziness. Advised from a critical care standpoint there is no major issues deferring restarting beta-blockade to cardiology given the arrhythmias yesterday. Physical Exam Physical Exam: General: Alert. nontoxic. Skin: Warm, dry, Head: Atraumatic Ears, nose, mouth and throat: airway patent Cardiovascular: Normal peripheral perfusion Respiratory: no respiratory distress Gastrointestinal: Non distended Musculoskeletal: No deformity Results & Data Results & Data Vital Signs (Past 12 Hours) Vital Signs Temp Pulse Resp BP Pulse Ox 02/24/24 12:09 90 19 98 02/24/24 12:00 98/70 L 02/24/24 11:54 87 18 99 02/24/24 11:15 82 22 97 02/24/24 10:57 111/76 02/24/24 10:57 79 14 99 02/24/24 10:06 88 14 97 02/24/24 10:00 84 20 89/64 L 96 02/24/24 09:10 36.6 C 02/24/24 09:00 102/73 02/24/24 09:00 85 19 97 02/24/24 08:27 91 H 19 96 02/24/24 08:00 100/69 02/24/24 07:51 93 H 28 H 96 02/24/24 07:03 74 13 97 02/24/24 07:00 94/66 L 02/24/24 07:00 94/66 L 02/24/24 06:00 74 13 96/70 L 95 02/24/24 05:15 79 12 95 12/15/24 05:00 102/69 02/24/24 05:00 102/69 02/24/24 04:39 79 16 94 02/24/24 04:30 83 24 96 02/24/24 04:06 79 23 93 02/24/24 04:00 91/71 L 02/24/24 03:57 77 17 95 02/24/24 03:33 77 25 H 94 02/24/24 03:00 73 20 95 02/24/24 03:00 92/67 L 02/24/24 03:00 92/67 L 02/24/24 03:00 92/67 L 02/24/24 02:30 85 21 95 02/24/24 02:24 76 17 95 02/24/24 02:00 89/61 L 02/24/24 01:48 77 19 94 Critical Care Results & Data Vital Signs (Past 12 Hours) Vital Signs Temp Pulse Resp BP Pulse Ox 02/24/24 12:09 90 19 98 02/24/24 12:00 98/70 L 02/24/24 11:54 87 18 99 02/24/24 11:15 82 22 97 02/24/24 10:57 111/76 02/24/24 10:57 79 14 99 02/24/24 10:06 88 14 97 02/24/24 10:00 84 20 89/64 L 96 02/24/24 09:10 36.6 C 02/24/24 09:00 102/73 02/24/24 09:00 85 19 97 02/24/24 08:27 91 H 19 96 02/24/24 08:00 100/69 02/24/24 07:51 93 H 28 H 96 02/24/24 07:03 74 13 97 02/24/24 07:00 94/66 L 02/24/24 07:00 94/66 L 02/24/24 06:00 74 13 96/70 L 95 02/24/24 05:15 79 12 95 02/24/24 05:00 102/69 02/24/24 05:00 102/69 02/24/24 04:39 79 16 94 02/24/24 04:30 83 24 96 02/24/24 04:06 79 23 93 02/24/24 04:00 91/71 L 02/24/24 03:57 77 17 95 02/24/24 03:33 77 25 H 94 02/24/24 03:00 73 20 95 02/24/24 03:00 92/67 L 02/24/24 03:00 92/67 L 02/24/24 03:00 92/67 L 02/24/24 02:30 85 21 95 02/24/24 02:24 76 17 95 02/24/24 02:00 89/61 L 02/24/24 01:48 77 19 94 Lab & Micro Results (Past 24 Hours) RBC 4.59 M/uL (4.70-6.10) L 02/23/24 WBC 15.01 K/ul (4.8-10.8) H 02/23/24 Hgb 13.5 g/dl (14.0-18.0) L 02/23/24 Hct 39.7 % (42.0-52.0) L 02/23/24 MCV 86.5 fL (80.0-100.0) 02/23/24 MCH 29.4 pg (25.0-34.0) 02/23/24 MCHC 34.0 g/dL (32.0-36.0) 02/23/24 RDW Standard Deviation 37.9 fL (36.4-46.3) 02/23/24 RDW Coefficient of Variation 12.0 % (11.5-14.5) 02/23/24 Plt Count 280 K/uL (130-400) 02/23/24 MPV 9.3 fL (9.4-12.4) L 02/23/24 Neutrophils (%) (Auto) 66.1 % 02/23/24 Lymphocytes (%) (Auto) 23.0 % 02/23/24 Monocytes # (Auto) 1.41 K/uL (0.11-0.59) H 02/23/24 Eosinophils # (Auto) 0.10 K/uL (0.00-0.50) 02/23/24 Immature Granulocyte % (Auto) 0.4 % 02/23/24 Neutrophils # (Auto) 9.93 K/uL (1.40-6.50) H 02/23/24 Lymphocytes # (Auto) 3.45 K/uL (1.20-3.40) H 02/23/24 Monocytes # (Auto) 1.41 K/uL (0.11-0.59) H 02/23/24 Eosinophils # (Auto) 0.10 K/uL (0.00-0.50) 02/23/24 Basophils # (Auto) 0.06 K/uL (0.00-0.20) 02/23/24 Immature Granulocyte # (Auto) 0.06 K/uL (0.01-0.20) 4 Na 137 mmol/L (136-145) 02/24/24 K 4.1 mmol/L (3.5-5.1) 02/24/24 Cl 106 mmol/L (98-107) 02/24/24 CO2 26 mmol/L (21-32) 02/24/24 Anion Gap 5 (3-11) 02/24/24 BUN 10 mg/dl (6-23) 02/24/24 Creatinine 0.87 mg/dl (0.6-1.4) 02/24/24 BUN/Creatinine Ratio 11.5 (10-20) 02/24/24 Glu 105 mg/dl (70-99(Fasting)) H 02/24/24 Ca 8.9 mg/dl (8.6-10.3) 02/24/24 Phosphorus Level 3.0 mg/dl (2.5-4.9) 02/24/24 Total Bilirubin 2.9 mg/dl (0.2-1.0) H 02/24/24 Direct Bilirubin 0.3 mg/dl (0-0.2) H 02/24/24 AST 223 U/L (13-39) H 02/24/24 ALT 86 U/L (7-52) H 02/24/24 Alkaline Phosphatase 104 U/L (34-104) 02/24/24 TP 6.1 gm/dl (6.0-8.3) 02/24/24 Albumin 3.7 gm/dl (3.4-5.0) 02/24/24 Mg 2.0 mg/dl (1.7-2.4) 02/24/24 04:15 Calcium Level 8.9 mg/dl (8.6-10.3) 02/24/24 04:15 Microbiology 02/23/24 00:24 Aerobic Blood Culture - Preliminary Blood No growth in Aerobic bottle after 24 hours. Anaerobic Blood Culture - Final 02/23/24 00:24 Aerobic Blood Culture - Preliminary Blood No growth in Aerobic bottle after 24 hours. Anaerobic Blood Culture - Final I & O Totals 24 Hours 02/23/24 02/24/24 02/25/24 06:59 06:59 06:59 Intake Total 200 / 200 1950 / 1950 750 / 750 Output Total 300 / 300 2250 / 2250 1000 / 1000 Balance -100 / -100 -300 / -300 -250 / -250 Cumulative 02/22/24 21:13 thru 02/24/24 12:00 Intake Total 2900 Output Total 3550 Balance -650 RT Ventilator Mngmt (Last Documented) Ventilator Ordered Settings Respiratory Rate 19 02/24/24 12:09 Ventilator - PT Measurements Respiratory Rate 19 Coding Level of Care Code 01374 SUB INP/OBS CARE 125MIN Diagnoses ST elevation (STEMI) myocardial infarction I21.02 Involved coronary artery: LAD coronary artery GERD (gastroesophageal reflux disease) K21.9 Hypercholesterolemia E78.00 Hypothyroidism E03.9 Leukocytosis D72.829 (1) ST elevation (STEMI) myocardial infarction Involved coronary artery: LAD coronary artery Qualified Code(s): I21.02 - ST elevation (STEMI) myocardial infarction involving left anterior descending coronary artery
[2024-02-24 14:43] LABS: Appearance Urine Clear (Clear); Bilirubin Urine Negative (Negative); Blood Urine Negative (Negative); Color Urine Yellow; Glucose Urine UA Negative (Negative); Ketones Urine Negative (Negative); Leukocyte Esterase Urine Negative (Negative); Nitrite Urine Negative (Negative); Protein Urine Negative (Negative); Specific Gravity Urine 1.003 (1.000-1.030); Urobilinogen Urine Negative (Negative); pH Urine 6.5 (4.5-7.5)
--- NOTE | 2024-02-24 15:22 | Hospitalist Progress Note ---
Date of Service February 24, 2024 Assessment & Plan (1) ST elevation (STEMI) myocardial infarction: Plan: 58-year-old male with PMH of GERD, hypothyroidism, prediabetes who presented with left-sided chest pain going to both shoulders was noted to have STEMI at presentation in the ED and heart alert was called. He underwent emergent cardiac cath and stenting. He is being managed for the following: Proximal LAD occlusion status post PCI STEMI Possible small apical thrombus Patient currently comfortable. Status post implantation of 2 overlapping drug- eluting stents 02/22/2024. Post cath echo [02/23/2024]with EF of 40 to 45%, LAD territory wall abnormalities noted, possible small apical thrombus. Patient noted to have intermittent heart block and did have occasional run of 6 beats of ventricular tachycardia on 02/22. Patient currently being managed in ICU 2/2 arrhythmia ISO acute STEMI. Pacer pads placed on patient. Plan to downgrade to PCU status w/ clearance from cardiology. Patient started on Eliquis (d/t concern of apical thrombus) and Brilinta per cardiology. Continue. LDL 106. Patient's rosuvastatin has been increased to 10 mg daily from 5 mg daily. Will need titration (up/down) down the road as tolerated/appropriate give chronic transaminitis. LFT uptrending, will repeat LFT in AM if continues to uptrend will need to hold statin. Cardiology on board, plan to repeat echo prior to discharge. Cardiac rehab on dc. f/u cards in 2-4 weeks of dc. Reactive leukocytosis: WBC elevated at 21,000 at presentation likely secondary to acute stress, flat trend at 21,000 following day, procalcitonin negative. Patient with no signs and symptoms of infection. Continue to monitor off antibiotic. WBC downtrending, pt remains afebrile, no s/s infection noted or complained of. Other chronic medical conditions: Continue with/resume home meds as and when able. Transaminitis, history abnormal LFTs from 2013 as per records, attributed to gallbladder disease as per remote records Hypothyroidism, euthyroid as of recent outpatient TSH Prediabetes, hemoglobin A1c of 5.8 from November 2023. A1c this admission 6.0. encourage lifestyle modification. repeat A1c in 3 months. DVT prophylaxis. Pt on eliquis Full code Text document was generated using [employer] voice recognition software. It may contain grammatical or spelling errors. Kindly contact undersigned for clarification of any documentation item in question. Admission and Anticipated Discharge Date Admission Date: February 22, 2024 Subjective Patient was seen and examined at bedside. Patient was lying in bed, on room air, NAD, resting comfortably. Pt's family at bedside, updated them and answered their questions. Patient reports no chest pain, reports eating okay and moving bowels okay. BP running soft, denies dizziness. Physical Exam Physical Exam: GENERAL: Comfortable, pleasant, no respiratory distress SKIN: Normal color, warm HEENT: Richards palpebral conjunctivae, no ptosis, moist buccal mucosa NECK : Supple, no tenderness CHEST : CTA, no tenderness HEART : RRR, no obvious murmurs ABDOMEN: Some distention, nontender EXTREMITIES : No LE swelling/tenderness, no other conspicuous deformities noted NEUROLOGIC : Coherent, no facial asymmetry, no other gross focality Results & Data Results & Data Vital Signs (Past 12 Hours) Vital Signs Temp Pulse Resp BP Pulse Ox 02/24/24 12:09 90 19 98 02/24/24 12:00 98/70 L 02/24/24 11:54 87 18 99 02/24/24 11:15 82 22 97 02/24/24 10:57 111/76 02/24/24 10:57 79 14 99 02/24/24 10:06 88 14 97 02/24/24 10:00 84 20 89/64 L 96 02/24/24 09:10 36.6 C 02/24/24 09:00 102/73 02/24/24 09:00 85 19 97 02/24/24 08:27 91 H 19 96 02/24/24 08:00 100/69 02/24/24 07:51 93 H 28 H 96 02/24/24 07:03 74 13 97 02/24/24 07:00 94/66 L 02/24/24 07:00 94/66 L 02/24/24 06:00 74 13 96/70 L 95 02/24/24 05:15 79 12 95 02/24/24 05:00 102/69 02/24/24 05:00 102/69 02/24/24 04:39 79 16 94 02/24/24 04:30 83 24 96 02/24/24 04:06 79 23 93 12/15/24 04:00 91/71 L 02/24/24 03:57 77 17 95 02/24/24 03:33 77 25 H 94 (1) ST elevation (STEMI) myocardial infarction Involved coronary artery: LAD coronary artery Qualified Code(s): I21.02 - ST elevation (STEMI) myocardial infarction involving left anterior descending coronary artery
[2024-02-24] MEDS ORDERED: Nursing to Pharmacy Communication SCH (16:00)
[2024-02-24 23:23] LABS: Basophils # (auto) 0.04 K/uL (0.00-0.20); Basophils % (auto) 0.3 %; Eosinophils # (auto) 0.17 K/uL (0.00-0.50); Eosinophils % (auto) 1.3 %; Hematocrit (blood only) 40.9 % (42.0-52.0); Hemoglobin 13.8 g/dl (14.0-18.0); Immature Granulocytes # (auto) 0.04 K/uL (0.01-0.20); Immature Granulocytes % (auto) 0.3 %; Lymphocytes # (auto) 3.34 K/uL (1.20-3.40); Lymphocytes % (auto) 26.1 %; Mean Corpuscular Hemoglobin 29.5 pg (25.0-34.0); Mean Corpuscular Hgb Conc 33.7 g/dL (32.0-36.0); Mean Corpuscular Volume 87.4 fL (80.0-100.0); Mean Platelet Volume 8.9 fL (9.4-12.4); Monocytes # (auto) 1.35 K/uL (0.11-0.59); Monocytes % (auto) 10.6 %; Neutrophils # (auto) 7.84 K/uL (1.40-6.50); Neutrophils % (auto) 61.4 %; Platelet Count 297 K/uL (130-400); RDW Coefficient of Variation 11.9 % (11.5-14.5); RDW Standard Deviation 38.2 fL (36.4-46.3); Red Blood Count 4.68 M/uL (4.70-6.10); White Blood Count 12.78 K/ul (4.8-10.8)
[2024-02-25 05:41] LABS: Albumin Level 3.8 gm/dl (3.4-5.0); Bilirubin Direct 0.2 mg/dl (0-0.2); Bilirubin,Total 2.3 mg/dl (0.2-1.0); Calcium 9.2 mg/dl (8.6-10.3); Creatinine Clr Calc Pharmacy 88.7 ml/min; Magnesium 1.9 mg/dl (1.7-2.4); Phosphorus 4.1 mg/dl (2.5-4.9); Potassium 4.1 mmol/L (3.5-5.1); Total Protein 6.3 gm/dl (6.0-8.3)
[2024-02-25 09:29] VITALS: TEMP 98.1
[2024-02-25 13:10] VITALS: BP 103/73; RESP 23; O2SAT 97
[2024-02-25 16:24] VITALS: PULSE 74
--- NOTE | 2024-02-25 16:48 | Discharge Summary ---
Date of Service February 25, 2024 Admission HPI Per Admitting Provider History obtained from patient and records. Medical history significant for GERD, hypothyroidism, prediabetes. Last confinement 2016 under General Surgery service for elective cholecystectomy for chronic cholecystitis. Last night, patient experienced transient left-sided chest discomfort while out in the cold to go to the grocery. After dinner tonight, patient experienced left-sided chest pain going to both oulders. No cough, no SOB. Denies fever, chills Symptoms unrelieved by antacid Rx. Patient drove himself to the ER. ST elevations noted on EKG done at the ER Heart alert called. Patient underwent emergent cardiac catheterization. Acute occlusion of the proximal LAD found with subsequent PCI (implantation of 2 overlapped drug-eluting stents). Patient currently comfortable at ICU. 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 Admission Exam Per Admitting Provider GENERAL: Comfortable, pleasant, no respiratory distress SKIN: Normal color, warm HEENT: [place] palpebral conjunctivae, no ptosis, dry buccal mucosa NECK : Supple, no tenderness CHEST : CTA, no tenderness HEART : RRR, no obvious murmurs ABDOMEN: Some distention, nontender EXTREMITIES : No LE swelling/tenderness, no other conspicuous deformities noted NEUROLOGIC : Coherent, no facial asymmetry, no other gross focality Principal Diagnosis Proximal LAD occlusion status post PCI STEMI Possible small apical thrombus History of transaminitis Prediabetes Discharge Exam GENERAL: Comfortable, pleasant, no respiratory distress SKIN: Normal color, warm HEENT: [place] palpebral conjunctivae, no ptosis, moist buccal mucosa NECK : Supple, no tenderness CHEST : CTA, no tenderness HEART : RRR, no obvious murmurs ABDOMEN: Some distention, nontender EXTREMITIES : No LE swelling/tenderness, no other conspicuous deformities noted NEUROLOGIC : Coherent, no facial asymmetry, no other gross focality Discharge Data Allergies Allergy/AdvReac Type Severity Reaction Status Date / Time No Known Drug Allergies Allergy Unknown NKDA Verified 04/10/23 09:25 Consultations 02/22/24 21:22 Consult Cardiac Catheterization Stat 02/22/24 21:31 ED Decision to Admit Stat 02/22/24 23:09 Consult Cardiac Rehabilitation Routine 02/23/24 00:10 Consult Insurance Collector Routine Procedures Performed Operation Date: 02/22/24 21:30 Actual Procedures p Cineradiography w/Routine Exam - Jason Jimenez MD, PhD p Aspiration/PCI w/KAYLEN for Stemi - Jason Jimenez MD, PhD Ordered Studies 02/22/24 21:30 CL Cath Imgs for PACS use only Stat Hospital Course (1) ST elevation (STEMI) myocardial infarction: 58-year-old male with PMH of GERD, hypothyroidism, prediabetes who presented with left-sided chest pain going to both shoulders was noted to have STEMI at presentation in the ED and heart alert was called. He underwent emergent cardiac cath and stenting. He was managed for the following: Proximal LAD occlusion status post PCI STEMI Possible small apical thrombus Patient currently comfortable. Status post implantation of 2 overlapping drug- eluting stents 02/22/2024. Post cath echo [02/23/2024]with EF of 40 to 45%, LAD territory wall abnormalities noted, possible small apical thrombus. Patient noted to have intermittent heart block and did have occasional run of 6 beats of ventricular tachycardia on 02/22. Patient was initially being managed in ICU 2/2 arrhythmia ISO acute STEMI. No further chest pain or arrhythmia while under observation. Patient started on Eliquis (d/t concern of apical thrombus) and Brilinta per cardiology. Continue. LDL 106. Patient's rosuvastatin has been increased to 10 mg daily from 5 mg daily. Will need titration (up/down) down the road as tolerated/appropriate give chronic transaminitis. Such has been extensively d/w the patient and his family. Pt advised to f/u w/ PCP closely for ongoing monitoring. Liver function today has been better and closer to his baseline. D/w cardio, finalized dc plan, pt to f/u cardio closely on dc. Cardiac rehab on dc. f/u cards in 2-4 weeks of dc. Reactive leukocytosis: WBC elevated at 21,000 at presentation likely secondary to acute stress, flat trend at 21,000 following day, procalcitonin negative. Patient with no signs and symptoms of infection. Continue to monitor off antibiotic. WBC downtrending, pt remains afebrile, no s/s infection noted or complained of. Other chronic medical conditions: Continue with/resume home meds as and when able. Transaminitis, history abnormal LFTs from 2013 as per records, attributed to gallbladder disease as per remote records Hypothyroidism, euthyroid as of recent outpatient TSH Prediabetes, hemoglobin A1c of 5.8 from November 2023. A1c this admission 6.0. encourage lifestyle modification. repeat A1c in 3 months. DVT prophylaxis. Pt on eliquis Full code Patient is being discharged home with following instruction at the point of discharge: Follow-up with your primary care physician within a week time and likely you will need labs CBC/CMP/magnesium/phosphorus. You were noted to have a STEMI, you underwent stents (x2) placement in your heart vessel. You are being started on Eliquis, Brilinta which are very important to maintain patency of your stent, do not miss doses on these medications without consulting your cardiology. You are also being started on metoprolol and your dose of rosuvastatin is being increased from 5 mg daily to 10 mg daily. As discussed at the bedside, you will need repeat liver function test in about 1 week time to make sure that your liver functions are under control and are not being affected by increasing dose of the rosuvastatin. Coordinate with your PCP office to set up the test, your will need ongoing monitoring of your liver enzymes for next few months and possible titration [up/down] of your rosuvastatin. Your cardiac medication optimization was limited by your low blood pressure while in hospital, it needs to be continuously assessed and optimized as an outpatient. You will need to follow-up with cardiology as an outpatient in 2 to 4 weeks time upon discharge. Your will benefit by establishing with cardiac rehab upon discharge, coordinate with your PCP office or cardiology office to set up the referral. Take your medications as prescribed. Please make sure that you are able to get your medications today by calling your pharmacy before you leave the hospital so that your treatment continuity is not broken. Text document was generated using [employer] voice recognition software. It may contain grammatical or spelling errors. Kindly contact undersigned for clarification of any documentation item in question. Home Health Attestation I certify that this patient is under my care and that I, or a physicians tax assistant working with me, had a face to-face encounter that meets the home health [id number] encounter requirements with this patient. The encounter with the patient was in whole, or in part, for the following medical condition, which is the primary reason for home health care (list medical condition): I certify that, based on my findings, the following services are medically nec essary home health services: My clinical findings support the need for the above services because: Further, I certify that my clinical findings support that this patient is homebound (i.e. absences from home require considerable and taxing effort and are for medical reasons or yarsanism services or infrequently or of short duration when for other reasons) because: Certification for Home Health Services: Based on the above findings, I certify that this patient is confined to the home and needs intermittent jail care, physical therapy and/or speech therapy or continues to need occupational therapy. The patient is under my care, and I have initiated the establishment of the plan of care. This patient will be followed by a physician who will periodically review the plan of care. Total Time Total Time Spent Total Time Spent (In Minutes): 45 Discharge Plan Discharge Items Patient Disposition: Home - Self-Care Reason For Visit: ACS Discharge Diagnosis: Proximal LAD occlusion status post PCI STEMI Possible small apical thrombus History of transaminitis Prediabetes Condition on Discharge: Good Activity: Per Instructions section Non-emergency contact: Primary Care Provider and Trench Pipe Layer Helper Call non-emergency contact if: you have any medication questions, your symptoms worsen, your pain is not controlled, you have a fever, your wound has increased redness and your wound has increased drainage Follow-up/Referrals: Jason Jimenez MD, PhD [Physician] - Marlena Killian MD [Primary Care Provider] - Diet: Heart Healthy Addtl Attending Provider Instructions: Follow-up with your primary care physician within a week time and likely you will need labs CBC/CMP/magnesium/phosphorus. You were noted to have a STEMI, you underwent stents (x2) placement in your heart vessel. You are being started on Eliquis, Brilinta which are very important to maintain patency of your stent, do not miss doses on these medications without consulting your cardiology. You are also being started on metoprolol and your dose of rosuvastatin is being increased from 5 mg daily to 10 mg daily. As discussed at the bedside, you will need repeat liver function test in about 1 week time to make sure that your liver functions are under control and are not being affected by increasing dose of the rosuvastatin. Coordinate with your PCP office to set up the test, your will need ongoing monitoring of your liver enzymes for next few months and possible titration [up/down] of your rosuvastatin. Your cardiac medication optimization was limited by your low blood pressure while in hospital, it needs to be continuously assessed and optimized as an outpatient. You will need to follow-up with cardiology as an outpatient in 2 to 4 weeks time upon discharge. Your will benefit by establishing with cardiac rehab upon discharge, coordinate with your PCP office or cardiology office to set up the referral. Take your medications as prescribed. Please make sure that you are able to get your medications today by calling your pharmacy before you leave the hospital so that your treatment continuity is not broken. ACTIVITY RECOMMENDATIONS: It is common to feel weak and fatigue for a few days. * Do not drive or operate any motorized equipment for the next three days. * Limit stair usage (2 or 3 trips a day only) for the next three days. * Do not lift anything heavier than 10 pounds for the next three days. * Do not engage in vigorous exercise or any sports for the next five days. * You may shower the day after your procedure, but do not immerse the area for three days. Cleanse the site gently with soap and water. SPECIAL CARE INSTRUCTIONS: * You may replace the pressure dressing or band-aid the morning after the procedure. * After your procedure, it is normal to have a small bruise or small lump at the site. Examine your site daily for any change in the bruise or lump, redness, swelling, drainage or numbness. Notify your doctor if any change. BLEEDING: * If there is a small amount of bleeding at the site, lie down and apply firm pressure with a clean cloth for ten minutes. When the bleeding stops, lie quietly keeping the procedure limb straight for six hours. Notify your doctor as soon as possible. * If the bleeding does not stop after ten minutes or if there is a large amount of bleeding or spurting, call 911 immediately. Continue to lie down and hold firm pressure until help arrives. SKIN IRRITATION: * You may experience some redness and/or swelling in the area where radiation was administered. If any skin irritation occurs, please contact your family physician. FOLLOW UP VISIT: Keep any scheduled doctor appointments. Addtl Pantry Cook Provider Instructions: Home Care: * Take your medications exactly as directed. Don't skip doses. * Remember that recovery after a heart attack takes time. Plan to rest for at lease 4-8 weeks while you recover. Then return to normal activity when your doctor says it's okay. * Ask your doctor about joining a heart rehabilitation program. * Tell your doctor if you are feeling depressed. Feelings of sadness are common after a heart attack, but it is important that you speak to someone if you are feeling overwhelmed by these feelings. * If you are having chest pain, call 911 for an ambulance. Do NOT drive yourself to the hospital. * Ask your family members to learn CPR. * Learn to take your own blood pressure and pulse. Keep a record of your results. Ask your doctor when you should seek emergency medical attention. He or she will tell you which blood pressure reading is dangerous. Lifestyle Changes: * Maintain a healthy weight. Get help to lose any extra pounds. * Cut back on salt. * Limit canned, dried, packaged, and fast foods. * Don't add salt to your food. * Season foods with herbs instead of salt when you cook. * Break the smoking habit. Enroll in a stop-smoking program to improve your chances of success. * Limit fatty foods. * Ask your doctor about having your lipid levels checked regularly. * Build up your activity according to your doctor's recommendation. * Ask your doctor when it's okay to resume sexual activity. * Tell your doctor about any erectile dysfunction (ED) medication you are taking. Some ED medications are not safe if you take certain heart medications. * Try to manage stress. Follow Up: It is important for you to keep your follow up appointments with your medical provider. Pending Studies at Discharge: No Stand-Alone Forms: My [facility], Smoking Cessation Medications and DC Order Prescriptions: New Eliquis 5 mg Tablet 5 mg PO BID Qty: 60 0RF Brilinta 90 mg Tablet 90 mg PO BID Qty: 60 0RF metoprolol tartrate 25 mg Tablet 25 mg PO BID Qty: 60 0RF nitroglycerin [Nitrostat] 0.4 mg Tablet, Sublingual 0.4 mg sublingual UD PRN (Reason: chest pain) Qty: 30 0RF rosuvastatin 10 mg Tablet 10 mg PO QAM Qty: 30 0RF Continued Multivitamin tablet 1 tab PO QAM Qty: 0 esomeprazole magnesium 20 mg capsule,delayed release(DR/EC) 20 mg PO DAILY Qty: 30 2RF levothyroxine 88 mcg tablet 100 mcg PO DAILY Discontinued rosuvastatin 5 mg tablet 5 mg PO DAILY Discharge Orders: Discharge Order (Routine); Ordered 02/25/24 Ordered By: Juliana Nolan/Other Patient Handouts: Prediabetes, 5 Steps for Eating Healthier Admission Data Admit Date/Time: 02/22/24 23:41 Attending Provider: Juliana Cummings Admit Provider: Clement Leary Primary Care Provider: Marlena Killian Other Providers: Jason Jimenez; Clement Leary; Masoud Guzman
== END 2024-02-25 16:55 | disposition home or self-care (01) | DRG 322 ==
LOC: ED 21:13 → 1E 21:53 → CC 21:53 → 1E 23:41